=== PATIENT | female | born 1970 | race Caucasian/White ===

== ENCOUNTER → 2017-08-09 07:23 | Outpatient (CLI) | payer MEDICAID, SELFPAY ==
--- NOTE | 2017-08-09 | BRBX_PTH ---
PATIENT: LAVELL LOUIS LOC: [facility] U#:[id number] AGE/SX: 54/F ROOM: RE08/09/[address]: Dr. Rola Vickers MD : 1970 BED: DIS: SPEC #: [id number] RECD: 08/09/17 13:06 STATUS: ANKUSH REStuart #: [id number] MITCHEL: 08/09/17 00:[address]: Rola Vickers DEPT: SURGICAL PATHOLOGY RECD BY: Ar Mccord ENTERED: 08/09/17 13:07 SP TYPE: BREAST BX OTHR DR: Dr. Alvino Ahn MD Tissues: Left breast, NOS Procedures: Surgery Specimen Level IV HEADER OPERATION: Left breast stereotactic needle core biopsy PRE-OP DIAGNOSIS: Microcalcifications, left breast upper outer deep TISSUE SUBMITTED: Left breast tissue ISCHEMIC TIME: 4.5 minutes FIXATIONA TIME: 10.5 hours MICROSCOPIC DIAGNOSIS Left breast, stereotactic needle core biopsy: Fibroadenoma with focal calcific change. Mild fibrocystic change. No evidence of malignancy. AM:nanci 08/10/17 MICROSCOPIC DESCRIPTION Slides are reviewed. GROSS DESCRIPTION Received in fixative is one container labeled with the patient's name and designated left breast. The specimen consists of multiple elongated fragments of guerra-yellow fibroadipose tissue that in aggregate measure 2.5 x 2.5 x 0.3 cm. The entire specimen is submitted in one cassette. / SJ:nanci 08/09/17 TC:5 CPT: 42600
--- NOTE | 2017-08-09 09:07 | PCM.OPRPT ---
Report of Operation Date of Procedure: 08/09/17 Pre-Operative Diagnosis: abnormal calcifications seen on left breast mammograms Post-Operative Diagnosis: same Surgery/Procedure Performed:: left breast stereotactic biopsy Description of Surgical Findings:: upper central calcifications of left breast Type of Anesthesia:: Local - 1% xylocaine Specimen's removed: left breast tissue Estimated Blood Loss (mL): < 1 ml Description of Procedure: After informed consent was given, the patient was brought into the breast biopsy suite and then placed in the prone position on the stereotactic biopsy table. The patients left breast was then placed at the opening of the head of the table. A signing agent compression mammogram was then obtained in the CC view. The suspicious radiological lesion was then identified, these calcifications were in the upper central portion of the breast. Stereo pictures of the lesion were then taken for XYZ coordinates. The Mammotome biopsy stylus was then positioned where it would be entering into the patients breast. The skin at this site was then cleansed with a surgical skin preparation. The skin and subcutaneous tissues at this site were then infiltrated with 1% xylocaine. A small skin incision was made with an 11 blade scalpel. The biopsy stylus was then positioned into the patients breast at the proper coordinates of depth. Using the Mammotome vacuum-assist device, several core samples of breast tissue were obtained. A specimen mammogram was the obtained and revealed that the abnormal calcifications were within the specimen. Thus adequate biopsy was completed. A hemostatic marker clip was then placed into the biopsy cavity and a signing agent film revealed that it was properly deployed. The patient was then placed in the supine position and pressure was applied to the breast until no active bleeding was noted. Steristrips were applied to reapproximate the skin. A unilateral mammogram in the CC and MLO view were then taken which revealed that the marker clip was in the same area as the previous suspicious lesion. The patient tolerated the procedure well and was discharged from the breast biopsy suite in good condition. - Complications none noted - Admit VTE Documentation VTE Present on Admission: No - low risk procedure for PE/DVT
--- NOTE | 2017-08-09 09:10 | OP.PCM_ITS ---
Report of Operation Date of Procedure: 08/09/17 Pre-Operative Diagnosis: abnormal calcifications seen on left breast mammograms Post-Operative Diagnosis: same Surgery/Procedure Performed:: left breast stereotactic biopsy Description of Surgical Findings:: upper central calcifications of left breast Type of Anesthesia:: Local - 1% xylocaine Specimen's removed: left breast tissue Estimated Blood Loss (mL): < 1 ml Description of Procedure: After informed consent was given, the patient was brought into the breast biopsy suite and then placed in the prone position on the stereotactic biopsy table. The patient?s left breast was then placed at the opening of the head of the table. A media relations manager compression mammogram was then obtained in the CC view. The suspicious radiological lesion was then identified, these calcifications were in the upper central portion of the breast. Stereo pictures of the lesion were then taken for XYZ coordinates. The Mammotome biopsy stylus was then positioned where it would be entering into the patient?s breast. The skin at this site was then cleansed with a surgical skin preparation. The skin and subcutaneous tissues at this site were then infiltrated with 1% xylocaine. A small skin incision was made with an 11 blade scalpel. The biopsy stylus was then positioned into the patient?s breast at the proper coordinates of depth. Using the Mammotome vacuum-assist device, several core samples of breast tissue were obtained. A specimen mammogram was the obtained and revealed that the abnormal calcifications were within the specimen. Thus adequate biopsy was completed. A hemostatic marker clip was then placed into the biopsy cavity and a media relations manager film revealed that it was properly deployed. The patient was then placed in the supine position and pressure was applied to the breast until no active bleeding was noted. Steristrips were applied to reapproximate the skin. A unilateral mammogram in the CC and MLO view were then taken which revealed that the marker clip was in the same area as the previous suspicious lesion. The patient tolerated the procedure well and was discharged from the breast biopsy suite in good condition. - Complications none noted - Admit VTE Documentation VTE Present on Admission: No - low risk procedure for PE/DVT
== END ==
PROVIDERS: Family Provider Family Medicine; PCP Family Medicine; Visit Provider Surgery
DX: D24.2 Benign neoplasm of left breast (principal); R92.8 Other abnormal and inconclusive findings on diagnostic imaging of breast
CPT/HCPCS: 19081; 88305; J7050

== ENCOUNTER 2018-03-14 21:30 | Emergency (ER) | payer MEDICAID, SELFPAY ==
[2018-03-14 21:31] VITALS: BP 133/77; PULSE 109; RESP 14; TEMP 35.9; O2SAT 100; BMI 37.1
--- NOTE | 2018-03-14 21:58 | ED.DCSUM_ITS ---
- ER Visit Summary Date of Service: 03/14/18 Chief Complaint: Left foot swelling and redness History of Present Illness: The patient is a 47 F intermittent swelling foot over 2 weeks. History of lymphedema Lasix 20 mg. Today no redness dorsal foot. There is no injuries. Similar symptoms cellulitis in the past not a diabetic. States is been worked up from cellulitis inpatient and not of MRSA or staph carrier. Multiple allergies. Has been treated with doxycycline. No history of DVT. No recent travel, surgery, or immobilizations. She is on indomethacin for anti-inflammatory treatment. Physical Examination: General: Alert and oriented ?3, no acute distress HEENT: Normocephalic, atraumatic. Moist mucosa membranes Neck: supple, nontender. Cardiovascular: Regular rate 84 and rhythm, no murmurs Respiratory: Normal breath sounds, symmetric, no distress Abdomen: Soft, nontender, nondistended Extremities: Left lower extremity: No medial thigh or calf tenderness. Pulses intact distally there is minimal redness dorsal medial foot. No crepitus. No streaking. There was swelling dorsal foot minimal and medial ankle. Neuro: no focal neurological deficits. Test Results: [] Emergency Department Course and Treatment: Patient vitals stable, nontoxic. Exam shows early cellulitis. No clinical DVT concerns. She will be placed on doxycycline should continue indomethacin. she will follow-up with her PCP. Treatment Plan: [] Disposition: Discharge Impression: Left foot cellulitis This note was generated with [employer] dictation software. It may contain incorrect words, spelling, and punctuation that were not noted in review of the chart prior to signing ED Disposition - Plan for ED Patient: Disposition: Home or Assisted Living Chief Complaint: Edema Diagnosis: Cellulitis of left foot Instructions: ED Infec Skin Cellulitis Prescriptions: Doxycycline Monohydrate 100 mg PO BID #20 capsule Referrals: Alvino Ahn MD [Primary Care Provider] - 3-5 Days
[2018-03-14] MEDS: Doxycycline 100 MG CAPSULE PO (22:04)
[2018-03-14 22:14] VITALS: BP 113/70; PULSE 91; RESP 16; O2SAT 100
== END 2018-03-14 22:14 | disposition home or self-care (01) ==
LOC: ED 22:05
PROVIDERS: Emergency Provider Emergency Medicine; Family Provider Family Medicine; PCP Family Medicine
DX: L03.116 Cellulitis of left lower limb (principal); Z72.0 Tobacco use; I89.0 Lymphedema, not elsewhere classified
CPT/HCPCS: 99283

== ENCOUNTER 2018-04-26 17:01 | Emergency (ER) | payer MEDICAID, SELFPAY ==
[2018-04-26 17:02] VITALS: BP 122/74; PULSE 93; RESP 16; TEMP 36.9; O2SAT 98; BMI 35.2
--- NOTE | 2018-04-26 17:11 | ED.VISSUMM ---
- ER Visit Summary Date of Service: 04/26/18 Chief Complaint: Sore throat, cough, sinus congestion History of Present Illness: The patient is a 47 F 2-day history of mild sore throat mild productive cough. Sinus congestion yesterday. No fevers. No sick contacts. No dyspnea or wheeze. Tobacco history. No vomiting or diarrhea. Tolerating oral fluids. Physical Examination: General: Alert and oriented ?3, no acute distress HEENT: Normocephalic, atraumatic. Moist mucosa membranes. Swollen turbinates right greater than left with clear drainage. No maxillary or frontal sinus tenderness. Minimal tonsils bilaterally, airway patent, no posterior pharyngeal erythema. Neck: supple, nontender. Cardiovascular: Regular rate and rhythm, no murmurs Respiratory: Normal breath sounds, symmetric, no distress Abdomen: Soft, nontender, nondistended Extremities: Nontender, no edema, pulses intact ?4 Neuro: no focal neurological deficits. Test Results: [] Emergency Department Course and Treatment: Patient vital signs stable. Exam concerns for viral sinusitis with URI symptoms. I discussed viral syndrome with the patient. Symptomatic treatment with antihistamines, antitussives. Discussed continue oral hydration. Discussed a viral process and tobacco cessation. Follow-up with PCP. Treatment Plan: [] Disposition: Discharge Impression: 1. Acute sinusitis 2 upper respiratory infection This note was generated with [employer] dictation software. It may contain incorrect words, spelling, and punctuation that were not noted in review of the chart prior to signing ED Disposition - Plan for ED Patient: Disposition: Home or Assisted Living Chief Complaint: Cold Sx Diagnosis: Sinusitis, URI (upper respiratory infection) Instructions: ED Upper Resp Infec No Abx Tx, ED Sinusitis No Abx Prescriptions: Benzonatate [Tessalon Perle] 100 mg PO 4X/DAY PRN PRN #20 capsule PRN Reason: Cough Loratadine 10 mg PO DAILY #30 tablet Referrals: Alvino Ahn MD [Primary Care Provider] - 5-7 Days
== END 2018-04-26 17:30 | disposition home or self-care (01) ==
LOC: ED 17:21
PROVIDERS: Emergency Provider Emergency Medicine; Family Provider Family Medicine; PCP Family Medicine
DX: J01.90 Acute sinusitis, unspecified (principal); J06.9 Acute upper respiratory infection, unspecified; K21.9 Gastro-esophageal reflux disease without esophagitis; F32.9 Major depressive disorder, single episode, unspecified; F41.9 Anxiety disorder, unspecified; Z72.0 Tobacco use
CPT/HCPCS: 99282

== ENCOUNTER 2019-05-22 15:03 | Emergency (ER) | payer MEDICAID, SELFPAY ==
[2019-05-22 15:03] VITALS: BP 145/86; PULSE 99; RESP 16; TEMP 35.9; O2SAT 100
[2019-05-22 15:04] VITALS: BP 145/86; PULSE 99; RESP 16; TEMP 35.9; O2SAT 100; BMI 38.4
--- NOTE | 2019-05-22 17:01 | ED.DCSUM_ITS ---
History of Present Illness Chief Complaint: Ear Problem Detail of Chief Complaint: R ear pain Informant: Patient Onset: Weeks - 4 Context: Gradual Onset Timing: Intermittent Quality: pinching Location: R ear Current Severity: Mild Maximum Severity: Moderate Worsened by: - - nothing. ok to lie on, not painful. Associated Symptoms: Nasal Congestion, Nonproductive cough. Negative for: Headache, Sinus Pressure, Vomiting, Shortness of Breath, Chest Pain, Hemoptysis Narrative: Patient states she has had a cold for about 2 weeks. No fevers or shortness of breath. She presents here for medication refill as well, she has been without her medicines for 3 or more weeks, she lives in [place], [place] and is here with a friend because was in a bad situation. She forgot her medications and she is not able to receive them by mail because no one will send them. She is on a muscle relaxer for chronic pain as well as indomethacin. She has had an earache for 4 weeks. It is intermittent. There is no changes in hearing or popping in her ear or discharge from her ear. - Past Medical History (1) Depression with anxiety Status: Chronic (2) GERD (gastroesophageal reflux disease) Status: Chronic Past Medical History - Allergies and Home Meds Allergies/Adverse Reactions: Allergies amoxicillin Allergy (Verified 05/22/19 16:32) Upset Stomach azithromycin Allergy (Verified 05/22/19 16:32) Upset Stomach cephalexin [From Keflex] Allergy (Verified 05/22/19 16:32) Hives ibuprofen Allergy (Verified 05/22/19 16:32) Upset Stomach tramadol Allergy (Verified 05/22/19 16:32) Upset Stomach Primary Care Physician: EMELINA ANDUJAR [Other] Lives: Friends Smoking Status: Current every day smoker Review of Systems General: Reports: Malaise. Denies: Chills, Fever, Sweats Eyes: Denies: Visual changes - bilaterally, Diplopia ENT: Reports: Right ear pain, Rhinorrhea. Denies: Sore throat Cardiovascular: Denies: Chest pain, Palpitations Respiratory: Reports: Cough. Denies: Dyspnea, Sputum, Dyspnea on exertion Gastrointestinal: Denies: Abdominal pain, Nausea, Vomiting, Diarrhea, Melena, Hematochezia Genitourinary: Denies: Dysuria, Hematuria, Frequency Musculoskeletal: Denies: Back pain, Extremity Pain Skin: Denies: Rash, Wounds Neurological: Denies: Headache, Weakness, Numbness Physical Exam Vital Signs/Narrative: Vital Signs Temp Pulse Resp BP Pulse Ox 05/22/19 15:04 96.7 F L 99 16 145/86 H 100 05/22/19 15:03 96.7 F L 99 16 145/86 H 100 Inital Vital Signs reviewed: Yes General: Well nourished, Well developed Head: Normocephalic, Atraumatic Eyes: Perrl, EOMI Ears: Normal external canal, TM's clear. Negative for: Pain with Movement of Right Tragus, Pain with Movement of Left Tragus, Right Mastoid Tenderness, Left Mastoid Tenderness Nose: Normal Inspection. Negative for: Purulent Drainage Mouth/Throat: Normal Inspection, No Posterior Erythema Tonsils: Negative for: Right Tonsilar Erythema, Left Tonsilar Erythema, Right Tonsilar Exudates, Left Tonsilar Exudates Neck: Supple, Nontender, No Meningismus Respiratory: No distress Neurological: Alert, Oriented x3, Cranial nerves II-XII grossly intact, Normal Strength, Normal Sensation Psychological: Normal affect, Normal Mood Diagnostic/Tx/Re-eval - Medical Decision Making Her ear is normal-appearing and symmetric with the other side. I do not think antibiotics are indicated. She can follow-up with ENT, she has seen Dr. Martinez in the past, if symptoms persist. She is asking for something for her cough and medication refills, I gave her prescription refills for her antidepressants and her omeprazole but not for the chronic pain medications which she is apparently doing well with. She understands this. ED Disposition - Plan for ED Patient: Disposition: Home or Assisted Living Diagnosis: Earache, right, Medication refill, Viral URI with cough Instructions: URI, Viral, No Abx (Adult), Med Refill Prescriptions: Citalopram Hydrobromide [Citalopram HBr] 40 mg PO DAILY #30 tab Transmission Status: Pending to [facility] Lurasidone HCl [Latuda] 60 mg PO DAILY #30 tab Transmission Status: Pending to [facility] Omeprazole 1 tab PO DAILY #30 capsule.dr Transmission Status: Pending to [facility] Benzonatate [Tessalon Perle] 100 mg PO TID PRN PRN #21 cap PRN Reason: Cough Transmission Status: Pending to [facility] Referrals: Misty Thomas DO [NON-STAFF] - (call for primary care doctor appt) Wagner Martinez MD [STAFF PHYSICIAN] - As Needed
[2019-05-22] MEDS: guaiFENesin Dm 10 ML UDC PO (17:18)
== END 2019-05-22 17:21 | disposition home or self-care (01) ==
PROVIDERS: Emergency Provider Emergency Medicine
DX: J06.9 Acute upper respiratory infection, unspecified (principal); Z76.0 Encounter for issue of repeat prescription; R05 Cough; F17.200 Nicotine dependence, unspecified, uncomplicated; G89.29 Other chronic pain; F41.8 Other specified anxiety disorders; K21.9 Gastro-esophageal reflux disease without esophagitis; Z88.1 Allergy status to other antibiotic agents; Z88.5 Allergy status to narcotic agent; Z88.8 Allergy status to other drugs, medicaments and biological substances
CPT/HCPCS: 99283

== ENCOUNTER 2024-03-01 20:05 | Emergency (ER) | payer MEDICAID, SELFPAY ==
[2024-03-01 20:08] VITALS: BP 128/82; PULSE 86; RESP 18; TEMP 36.2; O2SAT 95; BMI 43.7
== END 2024-03-01 21:30 | disposition left against medical advice (07) ==
LOC: ED 21:40
DX: M25.559 Pain in unspecified hip (principal)

== ENCOUNTER 2024-04-10 16:23 | Emergency (ER) | payer MEDICAID, SELFPAY ==
[2024-04-10 16:23] VITALS: BP 146/110; PULSE 79; RESP 18; TEMP 36.8; O2SAT 99; BMI 42.7
--- NOTE | 2024-04-10 18:47 | ED.VIS.LOWEX ---
HPI History of Present Illness HPI Narrative: Patient presents with bilateral foot and ankle pain and swelling that has been getting worse over the past month and a half. Patient states that her primary care physician has tried different anti-inflammatory medications without relief. Patient states she is also been started on cyclobenzaprine recently. Patient states she has also been started on Lasix. Patient states her pain is worse with any ambulation. Patient states it is better with rest. Patient states her pain comes and goes. Patient describes it as aching and burning. Patient states she has some sharp pain in her left ankle at times. Patient admits to some paresthesias but denies any weakness. Chief Complaint: Lower Extremity Injury Onset/Context/Timing Onset: Month(s) (1.5) Context: Gradual Onset Timing: Intermittent Quality of Pain: Dull and Aching Location: Bilateral feet and ankle Worsened by: Ambulation Relieved by: Rash Associated Symptoms Associated Symptoms: Positive for Parasthesia; Negative for Weakness or Loss of Funtion [facility] Medical History (Updated 04/10/24 @ 21:[address] Ignacio Pearson, ) Pancreatitis GERD (gastroesophageal reflux disease) Home Medications ?Medication ?Instructions ?Recorded ?Last Taken ?Type omeprazole 40 mg capsule,delayed 40 mg PO DAILY 05/22/19 Unknown History release diclofenac sodium 75 mg 75 mg PO BID 04/10/24 Unknown History tablet,delayed release loratadine 10 mg tablet 10 mg PO DAILY PRN allergy symptoms 04/10/24 Unknown History Allergy/AdvReac Type Severity Reaction Status Date / Time amoxicillin Allergy Unknown Verified 04/10/24 16:23 azithromycin Allergy Upset Verified 04/10/24 16:23 Stomach cephalexin (From Keflex) Allergy Hives Verified 04/10/24 16:23 cephalexin monohydrate (From Allergy Swelling Verified 04/10/24 16:23 Keflex) erythromycin base Allergy Unknown Verified 04/10/24 16:23 ibuprofen AdvReac Upset Verified 04/10/24 16:23 Stomach tramadol AdvReac Nausea/Vom/ Verified 04/10/24 16:23 Diarrhea Surgical History (Updated 04/10/24 @ 19:[address] Ignacio Pearson, DO) History of 3 sections History of vocal cord polypectomy Hx of cholecystectomy Social History housing: house Smoking Status: Current every day smoker tobacco type: cigarettes and e-cigarettes EXAM Physical Exam Const Vital Signs: 04/10/24 16:23 04/10/24 21:00 Temperature 98.3 F Temperature Source Oral Pulse Rate 79 82 Respiratory Rate 18 18 Blood Pressure 146/110 H 113/99 H Blood Pressure Mean 122 103 Pulse Ox 99 95 Oxygen Delivery Method Room Air Room Air MDM MDM MDM Narrative Medical decision making narrative: Differential diagnosis includes acute kidney injury, peripheral edema, congestive heart failure, and electrolyte abnormality. CBC will be obtained to assess for leukocytosis and anemia. Basic metabolic profile will be obtained to assess for electrolyte abnormality and renal function. BNP will be obtained to assess for congestive heart failure. Chest x-ray will be obtained to assess for pneumonia and congestive heart failure. Lab Data Attestation: I reviewed the patient's lab results. Lab results narrative: CBC was reviewed. There is a slight anemia with a hemoglobin of 11.9 and hematocrit 35.9. Remainder was within normal limits. Basic metabolic profile was reviewed and was within normal limits. He BNP was reviewed and was normal at 30.7. Labs: Laboratory Results - last 24 hr 04/10/24 20:05 WBC 9.8 RBC 3.85 L Hgb 11.9 L Hct 35.9 L MCV 93.2 MCH 30.9 MCHC 33.1 RDW Std Deviation 46.1 H RDW Coeff of Harish 13.6 Plt Count 212 MPV 12.6 H Immature Gran % (Auto) 0.300 Neut % (Auto) 50.9 Lymph % (Auto) 42.2 H [place] % (Auto) 4.3 Eos % (Auto) 1.8 Baso % (Auto) 0.5 Absolute Neuts (auto) 5.0 Absolute Lymphs (auto) 4.13 Nucleated RBC % 0 Sodium 142 Potassium 4.1 Chloride 109 H Carbon Dioxide 30.0 Anion Gap 4 L BUN 14 Creatinine 0.76 Estim Creat Clear Calc 114.36 Est GFR (MDRD) Af Amer 103 Est GFR (MDRD) Non-Af 85 BUN/Creatinine Ratio 18.5 Glucose 104 Calcium 9.0 B-Natriuretic Peptide 30.7 Radiography Chest X-Ray - ED: 2 View, Read by ED Physician, Read by Radiologist and No Acute Disease Diagnostic Testing: Clinical Impression(s) from Imaging Studies Chest X-Ray 04/10/24 19:51 IMPRESSION: Normal x-ray examination of the chest. Electronically Signed: Wagner Flanagan MD at 20:30 EST , PA and lateral chest x-ray was obtained. There are 2 views. On my independent interpretation, lung alvarado are clear. There is normal cardiac silhouette. Bony thorax is normal. There is no acute process noted. Radiologist also interpreted the x-ray and agrees. Treatment and Re-Evaluation Narrative: Smoking cessation was discussed. Patient was advised of her findings. Patient was sleeping on reevaluation. Patient was instructed to keep her legs elevated. Patient was given a note for work for today. Patient was instructed to follow-up with her primary care physician for further evaluation. Patient understood and was agreeable with the plan. All questions were answered. Discharge Plan Triage Chief Complaint: Lower Extremity Injury ED Provider: Ignacio Pearson Dx/Rx/DC Orders Clinical Impression: Peripheral edema, Bilateral ankle pain Instructions: ED Peripheral Edema, Bilateral Prescriptions: No Action omeprazole 40 MG capsule,delayed release(DR/EC) 40 mg PO DAILY diclofenac sodium 75 mg tablet,delayed release (DR/EC) 75 mg PO BID loratadine 10 MG tablet 10 mg PO DAILY PRN (Reason: allergy symptoms) Stand Alone Forms: ED Work / School Excuse Primary Care Provider: Care Physician,No Primary Referrals: Care Physician,No Primary [Primary Care Provider] - Doctor,Your [Non-Staff] - 3-5 Days Print Language: Portuguese Disposition Disposition: Home, Self Care
--- NOTE | 2024-04-10 19:51 | RAD_ITS ---
STUDY: X-RAY CHEST REASON FOR EXAM: Female, 53 years old. Edema TECHNIQUE: Single frontal view of the chest. COMPARISON: May 04, 2010 FINDINGS: The lungs are clear and expanded. There is no demonstrated pleural abnormality. Normal size heart. Normal mediastinum and arnaldo. Normal visualized pulmonary arteries. Normal visualized aortic arch and descending thoracic aorta. Normal visualized thoracic spine. Normal visualized ribs, clavicles, and shoulders. There is no demonstrated abnormality of the visualized soft tissue structures of the upper abdomen. RAD/Chest PA and Lateral IMPRESSION: Normal x-ray examination of the chest. Electronically Signed: Wagner Flanagan MD at 20:30 EST ,
[2024-04-10 20:14] LABS: Absolute Lymphocyte Count 4.13 X10^3/uL (0.83-4.51); Basophil# 0.05 X10^3/uL; Basophil% 0.5 % (0-1); Eosinophil# 0.18 X10^3/uL; Eosinophils% 1.8 % (0-5); Hematocrit 35.9 % (37-47); Hemoglobin 11.9 g/dL (12.0-15.0); Lymphocyte # 4.13 X10^3/ul (0.83-4.51); Lymphocyte % 42.2 % (19-41); Mean Corp Hgb Conc 33.1 g/dL (32-36); Mean Corpuscular Hgb 30.9 pg (27.0-32.0); Mean Corpuscular Volume 93.2 fL (81-99); Mean Platelet Vol. 12.6 fl (6.2-12.0); Monocyte# 0.42 X10^3/uL; Monocyte% 4.3 % (0-10); NRBC Flagged by Analyzer 0 % (0-5); Neutrophil # 4.98 X10^3/uL (2.7-7.7); Neutrophil % 50.9 % (47-70); Platelet Count 212 K/mm3 (150-450); RBC Distribution Width CV 13.6 % (11.6-14.6); RBC Distribution Width SD 46.1 fl (35.1-43.9); Red Blood Count 3.85 M/mm3 (4.2-5.4); White Blood Count 9.8 K/mm3 (4.4-11.0)
[2024-04-10 20:28] LABS: Anion Gap 4 (5-15); BUN 14 mg/dL (7-18); BUN/Creat Ratio 18.5 RATIO (10-20); Chloride 109 mmol/L (98-107); Creatinine, Serum 0.76 mg/dL (0.55-1.02); EST Glomerular Filtration Rate 85 mL/min (>60); Est Glom Filt Rate - Afr Amer 103 mL/min (>60); Estimated Creatinine Clearance 114.36 ml/min; Glucose 104 mg/dL (74-106); Potassium 4.1 mmol/L (3.5-5.1); Sodium Level 142 mmol/L (136-145)
[2024-04-10 20:34] LABS: BNP,B-Type NATRIURETIC PEPTIDE 30.7 pg/mL (0-100)
[2024-04-10 21:00] VITALS: BP 113/99; PULSE 82; RESP 18; O2SAT 95
== END 2024-04-10 22:03 | disposition home or self-care (01) ==
PROVIDERS: Emergency Provider Emergency Medicine; Visit Provider Emergency Medicine
DX: R60.0 Localized edema (principal); Z79.899 Other long term (current) drug therapy; Z90.49 Acquired absence of other specified parts of digestive tract; F17.210 Nicotine dependence, cigarettes, uncomplicated; F17.290 Nicotine dependence, other tobacco product, uncomplicated; M25.571 Pain in right ankle and joints of right foot; M25.572 Pain in left ankle and joints of left foot
CPT/HCPCS: 71046; 80048; 83880; 85025; 99283; A4216

== ENCOUNTER 2024-10-27 09:43 | Emergency (ER) | payer MEDICAID, SELFPAY ==
[2024-10-27 09:43] VITALS: BP 159/94; PULSE 87; RESP 14; TEMP 36.6; O2SAT 98; BMI 21.9
--- NOTE | 2024-10-27 10:07 | EX.ED.UPPERE ---
HPI History of Present Illness Chief Complaint: Upper Extremity Injury Informant: patient Narrative Narrative: 54-year-old female presents because of sciatica down my right leg for the past month, feels similar to sciatica she was diagnosed with on the left in the past but that went away, and nontraumatic left elbow pain for the past 2-3 weeks. She states the pain is focused in her elbow but it goes all the way up to her shoulder and all the way down to her wrist. It hurts more to move and is better to remain still. Has not tried any treatment. She has some numbness on the bottom of her right foot at times no bowel or bladder dysfunction or weakness in the leg. 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 She denies any injury to her back. She denies any systemic symptoms such as fevers or chills she is not an IV drug user, she denies any recent dental work or dental abscess. [facility] Medical History Arthritis Pancreatitis GERD (gastroesophageal reflux disease) Home Medications ?Medication ?Instructions ?Recorded ?Last Taken ?Type omeprazole 40 mg capsule,delayed 40 mg PO DAILY 05/22/19 Unknown History release celecoxib 200 mg capsule 200 mg PO BID 10/27/24 Unknown History duloxetine 60 mg capsule,delayed 60 mg PO DAILY 10/27/24 Unknown History release furosemide 20 mg tablet 20 mg PO DAILY PRN swelling 10/27/24 Unknown History prednisone 20 mg tablet 40 mg (2 x 20 mg) PO DAILY 6 days 10/27/24 Unknown Rx #12 tabs Allergy/AdvReac Type Severity Reaction Status Date / Time amoxicillin Allergy Unknown Verified 10/27/24 09:44 azithromycin Allergy Upset Verified 10/27/24 09:44 Stomach cephalexin (From Keflex) Allergy Hives Verified 10/27/24 09:44 cephalexin monohydrate (From Allergy Swelling Verified 10/27/24 09:44 Keflex) erythromycin base Allergy Unknown Verified 10/27/24 09:44 ibuprofen AdvReac Upset Verified 10/27/24 09:44 Stomach tramadol AdvReac Nausea/Vom/ Verified 10/27/24 09:44 Diarrhea Surgical History (Updated 04/10/24 @ 19:[address] Ignacio Pearson DO) History of 3 sections History of vocal cord polypectomy Hx of cholecystectomy Social History housing: house Smoking Status: Current every day smoker tobacco type: cigarettes and e-cigarettes ROS ROS ED Constitutional Constitutional ED: Denies chills or fever(s) Eyes Eyes: Denies blurry vision or diplopia ENT ENT ED: Denies dental pain, ear pain or sore throat Cardiovascular Cardiovascular: Denies chest pain, palpitations or racing heartbeat Respiratory/Chest Respiratory/Chest: Denies dyspnea Gastrointestinal Gastrointestinal: Denies abdominal pain, constipation, fecal incontinence, nausea or vomiting Genitourinary Genitourinary ED: Reports other Details: no urinary retention ; Denies abdominal discomfort or urinary incontinence Musculoskeletal Musculoskeletal: Reports back pain and extremity pain; Denies neck pain Integumentary Denies Abrasions, rash or wounds Neurologic Neurologic: Reports paresthesias RLE (Bottom of foot at times); Denies weakness EXAM Physical Exam Const Vital Signs: 10/27/24 09:43 Temperature 98 F Temperature Source Temporal Pulse Rate 87 Respiratory Rate 14 Blood Pressure 159/94 H Blood Pressure Mean 115 Pulse Ox 98 Oxygen Delivery Method Room Air Positive well nourished and well developed General Appearance ED: well developed and NAD HEENT Negative for trauma or tenderness Eyes PERRL and EOMs intact bilaterally Neck full ROM and supple Chest Wall inspection of chest normal and palpation of chest normal Resp normal respiratory effort and clear to auscultation bilaterally Cardio regular rate and regular rhythm Cardio Narrative: Soft systolic murmur GI normal to inspection, nondistended, normoactive bowel sounds, soft to palpation and non-tender Back/Spine no CVA tenderness, normal ROM and normal to inspection Back/Spine Narrative: Ipsilateral right straight leg raise causes buttock and back pain but does not reproduce radicular symptoms in the right lower extremity. Negative contralateral straight leg raise and cross straight leg raise. Lumbar Spine / Lower Back: ROM limited and straight leg raise negative bilaterally; Negative for lumbar spinal tenderness or paraspinal muscle tenderness Extremity normal to inspection, full ROM and no pedal edema Extremity Narrative: Tenderness throughout the entire posterior left elbow, including all bony prominences of both epicondyles, olecranon process, and all areas in between which is superficial palpation. The skin is normal-appearing without signs of cellulitis. There is no significantly swollen areas to suggest olecranon bursitis or an abscess. All compartments of the forearm and upper arm are soft and nondistended, nontender. She can move the wrist fully, but complains of pain when she does that in the proximal forearm and elbow. I can bend her from straight down to 90 degrees and with the arm abducted, perform pronation and supination with no pain. Also can range the shoulder without any difficulty. Neuro oriented x3, no focal motor deficits and no sensory deficits noted Sensorium / Orientation: alert Motor Exam: strength 5/5 throughout and clonus absent Deep Tendon Reflexes: Rt Patellar (L4): 2+, Lt Patellar (L4): 2+, Rt Ankle (S1): 2+ and Lt Ankle (S1): 2+ Deep Tendon Reflexes Back: Rt Patellar (L4): 2+, Lt Patellar (L4): 2+, Rt Ankle (S1): 2+ and Lt Ankle (S1): 2+ Plantar Reflex: Downgoing: bilateral Psych thought process normal Mood & Affect: anxious Skin no wounds Rashes: no rashes MDM MDM MDM Narrative Medical decision making narrative: Patient states she has appointments for these issues but she could not take the pain anymore. I do not think she has an infected elbow or crystal induced arthritis here, she is really moving it well, and she has diffuse tenderness, which to me is less indicative of an acute fracture but I did obtain three-view x-ray series of the left elbow, on my interpretation it is normal. Radiology in agreement. She was given some Toradol here, she is amenable to trying a prescription for prednisone, I do not think that she has a septic arthritis in the left elbow, her exam is very benign except for some superficial tenderness in a very nonspecific distribution. She is following up with her doctor as scheduled. Discharge Plan Triage Chief Complaint: Upper Extremity Injury ED Provider: Sd Desouza Dx/Rx/DC Orders Clinical Impression: Left elbow pain, Acute right-sided low back pain with right-sided sciatica Instructions: ED Arthralgia, ED Sciatica Prescriptions: New prednisone 20 mg tablet 40 mg PO DAILY 6 Days Qty: 12 0RF No Action omeprazole 40 MG capsule,delayed release(DR/EC) 40 mg PO DAILY celecoxib 200 mg capsule 200 mg PO BID furosemide 20 mg tablet 20 mg PO DAILY PRN (Reason: swelling) duloxetine 60 mg capsule,delayed release(DR/EC) 60 mg PO DAILY Primary Care Provider: Care Physician,No Primary Referrals: Doctor,Your [Non-Staff] - Keep [facility] appointment Print Language: [place] Disposition Disposition: Home, Self Care
[2024-10-27] MEDS: Ketorolac 30 MG/ML Syringe IM (10:26)
--- NOTE | 2024-10-27 10:33 | RAD_ITS ---
PROCEDURE: ELBOW MIN 3 VIEWS 10/27/2024 REASON FOR EXAM: PAIN TECHNIQUE: ELBOW MIN 3 VIEWS COMPARISON: None RAD/Elbow min 3 Views IMPRESSION: No acute fracture or dislocations. [id number] degenerative changes. No large joint effusion. Mild soft tissue edema. No radiographic foreign body. Reading Location: [id number]
[2024-10-27 12:22] VITALS: BP 159/83; PULSE 66; RESP 14; TEMP 36.9; O2SAT 100
== END 2024-10-27 12:23 | disposition home or self-care (01) ==
PROVIDERS: Emergency Provider Emergency Medicine; Visit Provider Emergency Medicine
DX: M25.522 Pain in left elbow (principal); M54.41 Lumbago with sciatica, right side; F17.210 Nicotine dependence, cigarettes, uncomplicated; R20.2 Paresthesia of skin; Z90.49 Acquired absence of other specified parts of digestive tract; K21.9 Gastro-esophageal reflux disease without esophagitis
CPT/HCPCS: 73080; 96372; 99282

== ENCOUNTER 2024-11-15 07:06 | Emergency (ER) | payer MEDICAID, SELFPAY ==
[2024-11-15 07:08] VITALS: BP 134/97; PULSE 79; RESP 16; TEMP 36.5; O2SAT 97
--- NOTE | 2024-11-15 07:30 | EX.ED.DYSGE1 ---
HPI History of Present Illness Chief Complaint: Other, Pain/Inj Detail of Chief Complaint: Patient has numerous complaints. Main complaint is bump right side of her Informant: patient Onset/Context/Timing Onset: Yesterday Context: Sudden Onset Timing: Continuous Quality: Pain and swelling anterior and inferior right ear Location: Right parotid gland and Stensen's duct Current Severity: Mild Maximum Severity: Moderate Worsened by: Nothing Relieved by: Nothing Associated Symptoms Associated Symptoms: Nothing/none Narrative Narrative: Patient is a 54-year-old woman with history of GERD, depression anxiety who presents because of swelling right side of her face and bump on the inside of her mouth. She had other complaints listed in triage but that is not the reason she presented. She states she is seen other practitioners for her other complaints. She denies fever, chills night sweats. She denies inability or difficulty opening closing her mouth. She denies change in voice. She denies difficulty swallowing. She has seen Dr. Wagner Martinez in the past. She has multiple antibiotic allergies. Based on her antibiotic allergies we will treat with doxycycline. Patient also was concerned because of bumps on her face. Prior similar symptoms: No Recent Illness/Hospitalization: No [facility] Medical History Arthritis Pancreatitis GERD (gastroesophageal reflux disease) Home Medications ?Medication ?Instructions ?Recorded ?Last Taken ?Type omeprazole 40 mg capsule,delayed 40 mg PO DAILY 05/22/19 Unknown History release celecoxib 200 mg capsule 200 mg PO BID 10/27/24 Unknown History duloxetine 60 mg capsule,delayed 60 mg PO DAILY 10/27/24 Unknown History release furosemide 20 mg tablet 20 mg PO DAILY PRN swelling 10/27/24 Unknown History prednisone 20 mg tablet 40 mg (2 x 20 mg) PO DAILY 6 days 10/27/24 Unknown Rx #12 tabs doxycycline monohydrate 100 mg 100 mg PO BID #14 CAPSULES 11/15/24 Unknown Rx capsule Allergy/AdvReac Type Severity Reaction Status Date / Time amoxicillin Allergy Unknown Verified 11/15/24 07:13 azithromycin Allergy Upset Verified 11/15/24 07:13 Stomach cephalexin (From Keflex) Allergy Hives Verified 11/15/24 07:13 cephalexin monohydrate (From Allergy Swelling Verified 11/15/24 07:13 Keflex) erythromycin base Allergy Unknown Verified 11/15/24 07:13 ibuprofen AdvReac Upset Verified 11/15/24 07:13 Stomach tramadol AdvReac Nausea/Vom/ Verified 11/15/24 07:13 Diarrhea Surgical History History of 3 sections History of vocal cord polypectomy Hx of cholecystectomy Social History housing: house Smoking Status: Current every day smoker tobacco type: cigarettes and e-cigarettes ROS ROS ED Constitutional Constitutional ED: Denies chills, fever(s), subjective, sweats or weight loss Eyes Eyes: Denies blurry vision, change in vision or diplopia ENT ENT ED: Reports other Details: Detailed HPI narrative ; Denies ear pain, rhinorrhea or sore throat Cardiovascular Cardiovascular: Denies palpitations Respiratory/Chest Respiratory/Chest: Denies cough or dyspnea Gastrointestinal Gastrointestinal: Denies nausea or vomiting Integumentary Reports rash and other Details: Patient has folliculitis/heat rash on her face and neck. Neurologic Neurologic: Denies headache(s) or paresthesias Hematologic/Lymphatic Hematologic/Lymphatic: Reports systems reviewed and no addt'l complaints, except as documented EXAM Physical Exam Const Vital Signs: 11/15/24 07:08 Temperature 97.7 F L Temperature Source Temporal Pulse Rate 79 Respiratory Rate 16 Blood Pressure 134/97 H Blood Pressure Mean 109 Pulse Ox 97 Oxygen Delivery Method Room Air Positive well nourished and well developed General Appearance ED: well developed and NAD; Negative for cyanotic or diaphoretic HEENT Reports moist mucous membranes HEENT Narrative: Head is atraumatic and normocephalic. Ears are normal. TMs are normal. There is no preauricular lymphadenopathy. Patient has swelling of her parotid gland. Milking of the parotid gland elicits discharge from Stensen's duct. Posterior pharynx without erythema or exudate. Uvula midline. No deviation tongue with protrusion. There is no dysphonia. There is no drooling. Eyes PERRL and EOMs intact bilaterally General Eye ED: Negative for pale conjunctiva or scleral icterus Neck no lymphadenopathy, supple and no JVD Neck Narrative: Trachea is midline. Cardio regular rate and regular rhythm Extremity normal to inspection Neuro oriented x3 and CN's II-XII intact bilaterally Sensorium / Orientation: alert Psych mental status grossly normal Skin Skin Narrative: Heat rash face/folliculitis. MDM MDM MDM Narrative Medical decision making narrative: Patient presents with facial swelling. Patient's exam is consistent with acute parotid inflammation. This may be due to an obstructing stone. Since patient has no fever and vital signs are unremarkable there is no indication for any laboratory testing. Based on her numerous antibiotic allergies history of doxycycline. She was instructed to suck on lemon drops. She was also instructed to contact Dr. Valderrama's office for follow-up since she has seen him in the past. History & Record Review Additional record(s) reviewed:: Prior ED visit (October 2024 for left elbow pain. April 2020 for forearm edema. May 2019 for ear pain and sinus symptoms.) Treatment and Re-Evaluation :: Patient received her first dose of doxycycline in the emergency department. Prescription for doxycycline was sent to pharmacy. Discharge Plan Triage Chief Complaint: Other, Pain/Inj ED Provider: Ace Fox Dx/Rx/DC Orders Clinical Impression: Acute parotitis, Chronic GERD, BMI greater than 30 Instructions: ED Salivary Gland Infection Prescriptions: New doxycycline monohydrate 100 mg capsule 100 mg PO BID Qty: 14 0RF No Action omeprazole 40 MG capsule,delayed release(DR/EC) 40 mg PO DAILY celecoxib 200 mg capsule 200 mg PO BID furosemide 20 mg tablet 20 mg PO DAILY PRN (Reason: swelling) duloxetine 60 mg capsule,delayed release(DR/EC) 60 mg PO DAILY prednisone 20 mg tablet 40 mg PO DAILY 6 Days Qty: 12 0RF Primary Care Provider: Care Physician,No Primary Referrals: Wagner Martinez MD [Med Staff - Active Staff] - 3-5 Days Care Physician,No Primary [Primary Care Provider] - Activity Restrictions/Additional Instructions: 1. Suck on lemon drops throughout the day. 2. Follow-up with Dr. Wagner Martinez who you have seen in the past. 3. If you develop a temperature greater than 100, shaking chills or significant increase in facial swelling return to the emergency department Print Language: Sami Disposition Disposition: Home, Self Care
[2024-11-15 07:47] VITALS: BP 147/96; PULSE 71; RESP 18; TEMP 36.5; O2SAT 100
== END 2024-11-15 07:50 | disposition home or self-care (01) ==
LOC: ED 07:36
PROVIDERS: Emergency Provider Emergency Medicine; PCP Nurse Practitioner Family; Visit Provider Emergency Medicine
DX: K11.20 Sialoadenitis, unspecified (principal); F17.210 Nicotine dependence, cigarettes, uncomplicated; K21.9 Gastro-esophageal reflux disease without esophagitis; Z90.49 Acquired absence of other specified parts of digestive tract; F32.A Depression, unspecified; F41.9 Anxiety disorder, unspecified
CPT/HCPCS: 99282

== ENCOUNTER 2024-11-20 10:19 | Emergency (ER) | payer MEDICAID, SELFPAY ==
[2024-11-20 10:21] VITALS: BP 114/87; PULSE 72; RESP 18; TEMP 37.4; O2SAT 98; BMI 41.3
--- NOTE | 2024-11-20 10:49 | EDS_ITS ---
HPI History of Present Illness Chief Complaint: Allergic Reaction Detail of Chief Complaint: Possible allergic reaction and sciatica . Informant: patient Onset/Context/Timing Onset: Today (Bumps on her face) and Weeks (Reported sciatic pain and low back pain) Context: Sudden Onset Timing: Continuous Quality: Patient with small whiteheads over her face. 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 No radicular pain. She reports foot drop Narrative Narrative: Patient is a 54-year-old woman. She has history of GERD, prostatitis, depression and anxiety and BMI greater than 40. She presents because of white bumps on her face which she believes is due to reaction to the antibiotic she was prescribed. Patient denies itching. Patient denies swelling of her lips, tongue or throat. She denies trouble swallowing. She has had no change in her voice. She has no cardiac or respiratory symptoms. She denies wheezing. Low back pain noted on the right side. There is no radicular pain. She reports dragging her foot today. She also has numbness in her foot and is seen by Dr. Gustafson. She denies history of diabetes, peripheral arterial disease or neuropathy. There is no history of trauma. She has not noted a rash. She does not have symptoms of claudication. Prior similar symptoms: Yes (Yes to back pain note to facial rash) Recent Illness/Hospitalization: Yes (Seen in ED for parotitis.) [facility] Medical History Arthritis Pancreatitis GERD (gastroesophageal reflux disease) Home Medications ?Medication ?Instructions ?Recorded ?Last Taken ?Type omeprazole 40 mg capsule,delayed 40 mg PO DAILY Unknown History release celecoxib 200 mg capsule 200 mg PO BID 10/27/24 Unkno wn History duloxetine 60 mg capsule,delayed 60 mg PO DAILY Unknown History release furosemide 20 mg tablet 20 mg PO DAILY PRN swelling 10/27/24 Unknown History prednisone 20 mg tablet 40 mg (2 x 20 mg) PO DAILY 6 days 10/27/24 Unknown Rx #12 tabs doxycycline monohydrate 100 mg 100 mg PO BID #14 CAPSU LES 11/15/24 Unknown Rx capsule Allergy/AdvReac Type Severity Reaction Status Date / Time amoxicillin Allergy Unknown Verified 11/20/24 10:24 azithromycin Allergy Upset Verified 11/20/24 10:24 Stomach cephalexin (From Keflex) Allergy Hives Verified 11/20/24 10:24 cephalexin monohydrate (From Allergy Swelling Verified 11/20/24 10:24 Keflex) erythromycin base Allergy Unknown Verified 11/20/24 10:24 ibuprofen AdvReac Upset Verified 11/20/24 10:24 Stomach tramadol AdvReac Nausea/Vom/ Verified 11/20/24 10:24 Diarrhea Surgical History History of 3 sections History of vocal cord polypectomy Hx of cholecystectomy Social History housing: house Smoking Status: Current every day smoker tobacco type: e-cigarettes ROS ROS ED Constitutional Constitutional ED: Denies chills, fever(s), subjective or sweats Eyes Eyes: Denies blurry vision or change in vision ENT ENT ED: Denies ear pain, rhinorrhea or sore throat Cardiovascular Cardiovascular: Denies chest pain or palpitations Respiratory/Chest Respiratory/Chest: Denies cough or dyspnea Gastrointestinal Gastrointestinal: Denies nausea Musculoskeletal Musculoskeletal: Reports back pain Integumentary Reports rash Neurologic Neurologic: Denies headache(s) or paresthesias Allergic/Immunologic Allergic/Immunologic ED: Denies mouth swelling, tongue swelling or urticaria EXAM Physical Exam Const Vital Signs: 11/20/24 10:21 Temperature 99.4 F H Temperature Source Oral Pulse Rate 72 Respiratory Rate 18 Blood Pressure 114/87 H Blood Pressure Mean 96 Pulse Ox 98 Oxygen Delivery Method Room Air Positive well nourished and well developed General Appearance ED: well developed and NAD HEENT Reports moist mucous membranes HEENT Narrative: Patient has multiple small whiteheads on her face. She states she has not been sweating profusely recently. She was seen for parotid gland swelling on the right. This has improved. She no longer complains of pain. There is no evidence of angioedema. Trachea is midline. There is no inspiratory expiratory stridor. Eyes PERRL and EOMs intact bilaterally General Eye ED: Negative for pale conjunctiva or scleral icterus Neck no lymphadenopathy, supple and no JVD Neck Narrative: Also documented under the H EENT portion of the EMR Resp normal respiratory effort and clear to auscultation bilaterally Cardio regular rate, regular rhythm, S1 normal heart sound, S2 normal heart sound and no murmurs GI normal to inspection, nondistended, normoactive bowel sounds and non-distended; Negative for hepatosplenomegaly Back/Spine no CVA tenderness Thoracic Spine / Upper Back: Negative for thoracic spinal tenderness Lumbar Spine / Lower Back: lumbar spinal tenderness Extremity normal to inspection General Extremety ED: Negative for edema or tenderness General Extremity: Negative for edema Neuro oriented x3, CN's II-XII intact bilaterally and no sensory deficits noted Neuro Narrative: Pelvic telemetry and ankle reflex are 1+. EHLs intact. Normal sensation L3-S1 dermatome. DP pulses palpable bilateral. Gait was observed. She has no foot drop. Able to walk on heels and toes. Able to perform 1 legged squat right and left. Having her bend to the right and left and flex causes her discomfort on the right side. Having her stand on her left foot causes her pain right low back. Standing on her right foot causes no discomfort. Motor Exam: strength 5/5 throughout Psych mental status grossly normal Skin No no rashes or lesions noted, no wounds and skin turgor normal Skin Narrative: Previously described under the HEENT portion of the medical exam General Skin Exam: elasticity normal MDM MDM MDM Narrative Medical decision making narrative: With regards to the rash this is not allergic. This has to do with hygiene. Sores or back pain she does not have sciatica. This is musculoskeletal. She is on NSAID. She was instructed to take her NSAID and ice. Prior ER and outpatient records were reviewed. There is no change since visit last week. Discharge Plan Triage Chief Complaint: Allergic Reaction Other Complaint: Back ED Provider: Ace Fox Dx/Rx/DC Orders Clinical Impression: [place], GERD (gastroesophageal reflux disease), Myofascial pain syndrome of lumbar spine Instructions: Adult Acne, ED Myofascial Pain Syndrome Prescriptions: No Action omeprazole 40 MG capsule,delayed release(DR/EC) 40 mg PO DAILY celecoxib 200 mg capsule 200 mg PO BID furosemide 20 mg tablet 20 mg PO DAILY PRN (Reason: swelling) duloxetine 60 mg capsule,delayed release(DR/EC) 60 mg PO DAILY prednisone 20 mg tablet 40 mg PO DAILY 6 Days Qty: 12 0RF doxycycline monohydrate 100 mg capsule 100 mg PO BID Qty: 14 0RF Primary Care Provider: Kia Chappell NP Referrals: Kia Chappell NP, [facility] [Primary Care Provider] - 1 Week if not improving Activity Restrictions/Additional Instructions: 1. Recommend taking your anti-inflammatory for your back pain. If you have loss of bowel control unable to urinate or are dragging your right lower extremity return to the emergency department otherwise follow-up with your providers. Print Language: Icelandic Disposition Disposition: Home, Self Care
[2024-11-20 11:38] VITALS: BP 118/71; PULSE 91; RESP 14; TEMP 37.3; O2SAT 98
== END 2024-11-20 11:40 | disposition home or self-care (01) ==
LOC: ED 11:04
PROVIDERS: Emergency Provider Emergency Medicine; PCP Nurse Practitioner Family; Visit Provider Emergency Medicine
DX: L70.0 Acne vulgaris (principal); G89.29 Other chronic pain; M54.50 Low back pain, unspecified; M79.18 Myalgia, other site; R20.0 Anesthesia of skin; K21.9 Gastro-esophageal reflux disease without esophagitis; F32.A Depression, unspecified; F41.9 Anxiety disorder, unspecified; F17.290 Nicotine dependence, other tobacco product, uncomplicated; Z79.899 Other long term (current) drug therapy
CPT/HCPCS: 99283

== ENCOUNTER 2024-12-07 08:21 | Emergency (ER) | payer MEDICAID, SELFPAY ==
[2024-12-07 08:22] VITALS: BP 170/110; PULSE 73; RESP 14; TEMP 36.6; O2SAT 98; BMI 40.8
--- NOTE | 2024-12-07 09:01 | EDS_ITS ---
HPI History of Present Illness Chief Complaint: Lower Extremity Injury Informant: patient Onset/Context/Timing Onset: Month(s) Context: Gradual Onset Timing: Continuous Quality: Aching Location: Right foot and right ankle Worsened by: Weightbearing Relieved by: Nothing Narrative Narrative: Patient presents with pain in her right foot and right ankle. Patient states she has degenerative disc disease in her back. Patient states she has back pain radiating to her right foot and ankle. Patient denies any trauma or injury. Patient states her pain is worse with weightbearing. Patient states she does feel off balance at times. Patient denies any paresthesias or weakness. Patient states it feels like something in her foot that is broken or out of place. Patient also admits to a headache. [facility] Medical History Arthritis Pancreatitis GERD (gastroesophageal reflux disease) Home Medications ?Medication ?Instructions ?Recorded ?Last Taken ?Type omeprazole 40 mg capsule,delayed 40 mg PO DAILY Unknown History release celecoxib 200 mg capsule 200 mg PO BID 10/27/24 Unkno wn History duloxetine 60 mg capsule,delayed 60 mg PO DAILY Unknown History release furosemide 20 mg tablet 20 mg PO DAILY PRN swelling 10/27/24 Unknown History prednisone 20 mg tablet 40 mg (2 x 20 mg) PO DAILY 6 days 10/27/24 Unknown Rx #12 tabs doxycycline monohydrate 100 mg 100 mg PO BID #14 CAPSU LES 11/15/24 Unknown Rx capsule Allergy/AdvReac Type Severity Reaction Status Date / Time amoxicillin Allergy Unknown Verified 12/07/24 08:22 azithromycin Allergy Upset Verified 12/07/24 08:22 Stomach cephalexin (From Keflex) Allergy Hives Verified 12/07/24 08:22 cephalexin monohydrate (From Allergy Swelling Verified 12/07/24 08:22 Keflex) erythromycin base Allergy Unknown Verified 12/07/24 08:22 ibuprofen AdvReac Upset Verified 12/07/24 08:22 Stomach tramadol AdvReac Nausea/Vom/ Verified 12/07/24 08:22 Diarrhea Surgical History History of 3 sections History of vocal cord polypectomy Hx of cholecystectomy Social History housing: house Smoking Status: Current every day smoker tobacco type: e-cigarettes ROS ROS ED Constitutional Constitutional ED: Reports chills and subjective; Denies fever(s) Eyes Eyes: Reports blurry vision; Denies diplopia ENT ENT ED: Denies rhinorrhea or sore throat Cardiovascular Cardiovascular: Denies chest pain or palpitations Respiratory/Chest Respiratory/Chest: Denies cough or dyspnea Gastrointestinal Gastrointestinal: Denies nausea or vomiting Genitourinary Genitourinary ED: Denies dysuria or hematuria Musculoskeletal Musculoskeletal: Reports back pain and neck pain Integumentary Denies abscess or rash Neurologic Neurologic: Reports headache(s); Denies weakness Allergic/Immunologic Allergic/Immunologic ED: Denies mouth swelling or urticaria EXAM Physical Exam Const Vital Signs: 12/07/24 08:22 Temperature 98 F Temperature Source Temporal Pulse Rate 73 Respiratory Rate 14 Blood Pressure 170/110 H Blood Pressure Mean 130 Pulse Ox 98 Oxygen Delivery Method Room Air Positive well nourished and well developed Constitutional Narrative: Patient was resting in the bed and sleeping when I walked in the room. Patient has a BMI of 40.8. General Appearance ED: well developed and NAD HEENT Reports moist mucous membranes Neck supple and no JVD Resp normal respiratory effort and clear to auscultation bilaterally Cardio regular rate and regular rhythm GI non-tender and non-distended Palpation: soft Back/Spine Back/Spine Narrative: There is mild tenderness of the right lumbar paraspinal muscles. There is no midline tenderness. There is no bony crepitance or step-off. There is good range of motion. Straight leg raises were negative bilaterally. Strength is 5/5 bilateral lower extremities. There are no sensory deficits. Extremity Extremity Narrative: There is tenderness and edema over the right ankle and right foot. There is no ecchymosis. There is no deformity noted. Range of motion was limited in all motions of the right ankle secondary to pain. Sensation was intact to light touch in all digits. Capillary refill was less than 2 seconds in all digits. Pedal pulses are equal bilaterally. Neuro oriented x3, CN's II-XII intact bilaterally and no sensory deficits noted Sensorium / Orientation: alert Motor Exam: strength 5/5 throughout Psych mental status grossly normal MDM MDM MDM Narrative Medical decision making narrative: Differential diagnosis includes degenerative arthritis, fracture, sprain, contusion, and radiculopathy. X-rays of the right foot and right ankle will be obtained to assess for fracture and degenerative arthritis. Radiography Diagnostic Testing: Clinical Impression(s) from Imaging Studies Ankle X-Ray 12/07/24 09:30 IMPRESSION: No fracture. Soft tissue swelling is present. Reading Location: [facility] Foot X-Ray 12/07/24 09:30 IMPRESSION: No evidence of acute injury. Plantar spur. Reading Location: [facility] X-rays of the right ankle were obtained. There are 3 views. On my independent interpretation, there is no acute fracture or dislocation noted. There are no degenerative changes noted. Radiologist also interpreted the x-rays and agrees. X-rays of the right foot were obtained. There are 3 views. My independent interpretation, there is no acute fracture or dislocation noted. There is no soft tissue swelling noted. There are no degenerative changes noted. Radiologist also interpreted the x-rays and agrees. Treatment and Re-Evaluation :: Patient was advised of her findings. Patient was instructed to ice and elevate her right foot. Patient was instructed to follow-up with her primary care physician and personal lines insurance agent in 5 to 7 days. Patient was instructed continue her medications as previously prescribed. Patient was instructed to return if worse in any way. Patient understood and was agreeable with the plan. All questions were answered. Discharge Plan Triage Chief Complaint: Lower Extremity Injury ED Provider: Ignacio Pearson Dx/Rx/DC Orders Clinical Impression: Right foot pain, GERD (gastroesophageal reflux disease), Nicotine vapor product user Instructions: ED Foot Sprain, ED Pain, Acute, Uncertain Cause Prescriptions: No Action omeprazole 40 MG capsule,delayed release(DR/EC) 40 mg PO DAILY celecoxib 200 mg capsule 200 mg PO BID furosemide 20 mg tablet 20 mg PO DAILY PRN (Reason: swelling) duloxetine 60 mg capsule,delayed release(DR/EC) 60 mg PO DAILY prednisone 20 mg tablet 40 mg PO DAILY 6 Days Qty: 12 0RF doxycycline monohydrate 100 mg capsule 100 mg PO BID Qty: 14 0RF Primary Care Provider: Kia Chappell NP Referrals: Kia Chappell NP, [facility] [Primary Care Provider] - 5-7 Days Print Language: Tongan Disposition Disposition: Home, Self Care
--- OUTSIDE RECORDS SUMMARY | 2024-12-07 09:27 | XMS RPT_ITS | CCD ---
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 Name Role Phone CastorenaRenettaDrea, Kareem Z Primary Care Provider CASTORENA-DREA, FAREEDAH Referring Unavail able CASTORENA-DREA, [facility] Primary Care Unavail able [facility] Referring Unavail able CASTORENA-DREA, [facility] Primary Care Unavail able CASTORENA-DREA, [facility] Primary Care Unavail able CASTORENA-DREA, [facility] Referring Unavail able Castorena-Drea MD [facility] Primary Care Provi vannesa [facility], [facility] Primary [facility] Unava ilable WU DHUNGCHAZ, ASHEESH A Attending Unavailab le CASTORENA-DREA, NICKEED Z Primary Care Unava ilable WU DHUNGAT, ASHEESH A Attending Unavailab le Unavailable Primary Care Provider UnavailKIA Gore Primary Care Physician Care Physician, No Primary Primary Care Provider Unavailable Dr. Sd Desouza MD Emergency Provider Dr. Sd Desouza MD Attending Provider Dr. Ace Fox MD Emergency Provider [phone] Ta LIFE TEACHER-CKia Primary Care Provider WAGNER MAN Attending Unavailable KIA CASTELLANOS Primary Care Physician KIA CHAPPELL Primary Care Unavailable KIA CHAPPELL Attending Unavailable KIA CHAPPELL Attending Unavailable KIA CHAPPELL Primary Care Unavailable KIA CHAPPELL Primary Care Unavailable ASHER HANSEN Attending Unavailabl e CHAPPELL, KIA Primary Care Unavailable CHAPPELL, KIA Attending Unavailable CHAPPELL, KIA Attending Unavailable CHAPPELL, KIA Primary Care Unavailable CHAPPELL, KIA Attending Unavailable CHAPPELL, KIA Primary Care Unavailable CHAPPELL, KIA Primary Care Unavailable ASHER HANSEN Attending UnavailSd Stoddard Attending Unavailable Care Physician, No Primary Primary Care Unava ilable Care Physician, No Primary Primary Care Unava ilable Ignacio Pearson Attending Unavailable Chappell LIFE TEACHER, Kia Attending Unavailable Chappell LIFE TEACHER, Kia Referring Unavailable Care Physician, No Primary Primary Care Unava ilable Chappell LIFE TEACHER, Kia Primary Care Unavailable Chappell LIFE TEACHER, Kia Attending Unavailable KRAS, VAZQUEZ Attending Unavailable KRAS, VAZQUEZ Primary Care Unavailable Care Physician, No Primary Primary Care Unava ilable Provider, Ed Physician Attending Unavailab le Ta LIFE TEACHER, Kia Primary Care Unavailable Fox, Ace Attending Unavailable Chappell LIFE TEACHER, Kia Primary Care Unavailable Fox, Ace Attending Unavailable Allergies Allergy Classification Reported Allergen(s) Allergy Type Date of Onset Reaction(s) Facility Cephalosporins (antibiotic) (1 source) [facility]in [facility] 7 [facility] Macrolides (antibiotic) (1 source) Erythromycin Drug Allergy 4 Other (See Comments) [employer] NSAIDs (1 source) Ibuprofen Drug Allergy 4 Other (See Comments) [employer] Opioid Agonists (1 source) traMADol Drug Allergy 6 Other (See Comments) [facility] Penicillins (antibiotic) (1 source) Amoxicillin Drug Allergy 4 Other (See Comments) [employer] (20 sources) Amoxicillin; Translations: [amoxicillin] Drug Allergy 4 Other (See Comments), GI Upset, Stomach ache (finding) [employer] [place], [place] (20 sources) Cephalexin; Translations: [cephalexin] Drug Allergy 1 Swelling, Hives, Stomach ache (finding) [facility] [employer] [place], [place] (19 sources) Erythromycin; Translations: [ERYTHROMYCIN] Drug Allergy 1 Other (See Comments), [facility] [place] [place] ([facility]) Ibuprofen; Translations: [ibuprofen] Drug Allergy 4 Other (See Comments), GI Upset, Stomach ache (finding) [employer] [place], [place] (18 sources) traMADol; Translations: [tramadol] Drug Allergy 6 Other (See Comments), Stomach ache (finding) [place], [place] (6 sources) traMADol; Translations: [TRAMADOL HCL] Drug Allergy 6 Vomiting [facility] (8 sources) Azithromycin; Translations: [azithromycin] Drug Allergy 5 Stomach ache (finding) [facility] (4 sources) Cephalexin; Translations: [cephalexin monohydrate] Drug Allergy 5 Swelling [facility] (1 source) Amoxicillin Drug Allergy 5 [facility] (1 source) Azithromycin Drug Allergy 5 [facility] (1 source) Cephalexin Drug Allergy 5 [facility] (1 source) Erythromycin Drug Allergy 5 [facility] (1 source) Ibuprofen Drug Allergy 5 [facility] (1 source) traMADol Drug Allergy 5 [facility] Medications Current Medications Medication Drug Class(es) Dates Sig (Normalized) Sig (Original) acetaminophen 500 mg oral tablet (4 sources) Start: 02-14-2021 take 1 tablet by mouth four times daily as needed for pain acetaminophen (TYLENOL) 500 MG tablet Take 1 tablet by mouth 4 times daily as needed for Pain 360 tablet 1 02/14/2021 Active Start: 01-02-2019 take 2 tablets by mo [facility] every six hours as needed for pain acetaminophen (TYLENOL) 500 MG tablet Take 2 tablets by mouth every 6 hours as needed for Pain Maximum dose- 8 tablets/24 hours. 120 tablet 3 01/02/2019 Active Start: 02-24-2017 End: 01-02-2019 take 2 tablets by mouth every six hours as needed for pain acetaminophen (TYLENOL) 325 MG tablet Take 2 tablets by mouth every 6 hours as needed for Pain 60 tablet 1 02/24/2017 01/02/2019 Discontinued (LIST CLEANUP) [id number] 200 actuat albuterol 0.09 mg/actuat metered dose inhaler (9 sources) beta2-Adrenergic Agonist Start: 06-09-2023 take 2 puff(s) by inhalation four times daily as needed for wheezing albuterol sulfate HFA (VENTOLIN HFA) 108 (90 Base) MCG/ACT inhaler Inhale 2 puffs into the lungs 4 times daily as needed for Wheezing 54 g 1 06/09/2023 Active Start: 03-14-2022 take 2 puff(s) by in halation four times daily as needed for wheezing albuterol sulfate HFA (VENTOLIN HFA) 108 (90 Base) MCG/ACT inhaler Inhale 2 puffs into the lungs 4 times daily as needed for Wheezing 54 g 1 03/14/2022 Active Start: 08-02-2019 End: 10-18-2020 take 2 puff(s) by inhalation four times daily as needed for wheezing albuterol sulfate HFA (VENTOLIN HFA) 108 (90 Base) MCG/ACT inhaler Inhale 2 puffs into the lungs 4 times daily as needed for Wheezing 1 Inhaler 5 08/02/2019 10/18/2020 Discontinued (LIST CLEANUP) Start: 11-18-2017 take 2 puff(s) by in halation every four hours as needed for wheezing albuterol HFA (PROAIR HFA) 90 mcg/actuation inhaler Inhale 2 Puffs as instructed every 4 hours as needed for Wheezing/Shortness of Breath. 1 Inhaler 3 11/18/2017 Active brompheniramine maleate 0.4 mg/ml / dextromethorphan hydrobromide 2 mg/ml / pseudoephedrine hydrochloride 6 mg/ml oral solution (3 sources) alpha-Adrenergic Agonist, Uncompetitive Q-tckyrl-M-aspartate Receptor Antagonist, Sigma-1 Agonist Start: 03-14-2022 take 5 mL by mouth four times daily as needed for cough jwfesylmialyvgp-vdgvjvemxdadkxz-WZ (BROMFED DM) 2-30-10 MG/5ML syrup Take 5 mLs by mouth 4 times daily as needed for Congestion or Cough 90 mL 0 03/14/2022 Active Start: 06-09-2021 take 5 mL by mouth four times daily as needed for cough lgynskqqqfpllmy-pvygyeygrkzbkuu-ZL 2-30- 10 MG/5ML syrup Take 5 mLs by mouth 4 times daily as needed for Congestion or Cough 120 mL 0 06/09/2021 Active 24 hr buPROPion hydrochloride 150 mg extended release oral tablet (1 source) Aminoketone Start: 06-07-2023 buPROPion (WELLBUTRIN XL) 150 MG extended release tablet 06/07/2023 Active celecoxib 200 mg oral capsule (11 sources) Nonsteroidal Anti-inflammatory Drug Start: 10-27-2024 End: 10-27-2024 take 1 capsule by mouth twice daily Celecoxib 100 mg capsule Discontinued 100 mg PO TWICE A DAY October 27, 2024 12:00am October 27, 2024 9:57am Start: 10-12-2024 take 1 capsule by [facility] every twelve hours celecoxib (CELEBREX) 200 mg capsule Take 1 capsule by mouth every 12 hours. 10/12/2024 Active Start: 08-21-2024 End: 11-19-2024 take 1 capsule by mouth twice daily Celecoxib 200 mg capsule Active 200 mg PO TWICE A DAY October 27, 2024 12:00am clindamycin 300 mg oral capsule (3 sources) Lincosamide Antibacterial Start: 02-04-2021 End: 02-11-2021 take 1 capsule by mouth three times daily clindamycin (CLEOCIN) 300 MG capsule Take 1 capsule by mouth 3 times daily for 7 days 21 capsule 0 02/04/2021 02/11/2021 Active Start: 01-02-2019 End: 01-12-2019 take 1 capsule by mouth three times daily clindamycin (CLEOCIN) 300 MG capsule Take 1 capsule by mouth 3 times daily for 10 days 30 capsule 0 01/02/2019 01/12/2019 Active COMPOUNDED PRESCRIPTION (10 sources) Start: 07-26-2017 COMPOUNDED PRE SCRIPTION Knee high prescription hose 15-20 mmHg for right and left leg- wearing during the day- remove at night ICD I87.2 1 Packet 07/26/2017 Active Start: 07-02-2017 COMPOUNDED PRE SCRIPTION Knee high compression Hose 15-20 mmHg for right and left leg Wear during day, remove at night ICD I87.2 1 Packet 07/02/2017 Active cyclobenzaprine hydrochloride 5 mg oral tablet (2 sources) Muscle Relaxant Start: 03-10-2024 cyclobenzaprine 5 mg oral tablet See Instructions, 1 or 2 tab(s) Oral TID as needed for muscle spasm, # 30 tab(s), 0 Refill(s), Pharmacy: [facility] #[facility], Right sided sciatica Muscle spasm, 173, cm, 03/10/24 10:59:00 EST, Height, kg, 03/10/24 10:59:00 EST, Dosing Weight Start Date: 03/10/24 Status: Ordered DME MISCellaneous (1 source) Start: 05-05-2024 DME MISCellaneous See Instructions, Knee high compression stockings 20/30 mm Hg to bilateral lower extremities q Day, on upon waking and off at bedtime. Please dispense 2 pair., # 2 EA, 0 Refill(s), Pharmacy: [facility] #[id number], Venous insufficiency, 167, cm, 04/28/24 10:24:00 EST, Height, 120.3, kg, 04/28/24 10:24:00 EST, Dosing Weight Start Date: 05/05/24 Status: Ordered Quantity: 2.0 Unit: EA Repeat number: 1 Indications: Venous insufficiency (chronic) (peripheral); doxycycline monohydrate 100 mg oral capsule (4 sources) Tetracycline-c lass Drug Start: 11-15-2024 take 1 capsule by mouth twice daily Doxycycline Monohydrate 100 mg capsule Active 100 mg PO TWICE A DAY 14 November 15, 2024 12:00am Start: 03-24-2024 End: 04-03-2024 doxycycline hyclate 100 mg o ral tablet Dose : 100 mg = 1 tab(s), Oral, BID, X 10 day(s), # 20 tab(s), 0 Refill(s), 04/03/24 9:51:00 AM EST, Pharmacy: [facility], Bilateral lower leg cellulitis, 173, cm, 03/24/24 9:16:00 EST, Height, 121.8, kg, 03/24/24 9:03:00 EST, Dosing Weight Start Date: 03/24/24 Stop Date: 04/03/24 Status: Ordered DULoxetine 60 mg delayed release oral capsule (11 sources) Serotonin and Norepinephrine Reuptake Inhibitor Start: 10-27-2024 DULoxetine (CYMBALTA) 60 mg capsule 60 mg. 10/27/2024 Active Start: 09-22-2021 DULoxetine (CY MBALTA) 30 MG extended release capsule 60 mg 0 09/22/2021 Active Start: 09-22-2021 DULoxetine (CY MBALTA) 30 MG extended release capsule ergocalciferol 1.25 mg oral capsule (3 sources) Provitamin D2 Compound Start: 04-05-2022 take 1 capsule by mouth every week vitamin D (ERGOCALCIFEROL) 1.25 MG (94100 UT) CAPS capsule Indications: Vitamin D deficiency Take 1 capsule by mouth once a week 4 capsule 5 04/05/2022 Active Start: 12-02-2021 take 1 capsule by mo uth every week vitamin D (ERGOCALCIFEROL) 1.25 MG (54391 UT) CAPS capsule Indications: Vitamin D deficiency Take 1 capsule by mouth once a week 4 capsule 5 12/02/2021 Active fexofenadine hydrochloride 180 mg oral tablet (5 sources) Histamine-1 Receptor Antagonist Start: 06-17-2017 take 1 tablet by mouth once daily fexofenadine (SINDY) 180 mg tablet Take 1 tablet by mouth once daily. 30 tablet 06/17/2017 Active fluticasone propionate 0.05 mg/actuat metered dose nasal spray (6 sources) Corticosteroid Start: 11-18-2017 take 1 spray(s) nasal route once daily fluticasone (FLONASE) 50 mcg/actuation nasal spray Use 1 [place] in each nostril once daily. 1 Bottle 3 11/18/2017 Active Start: 08-15-2015 End: 01-02-2019 fluticasone (FLONASE) 50 MCG /ACT nasal spray 1 spray by Nasal route daily 1 Bottle 3 08/15/2015 01/02/2019 Discontinued (LIST CLEANUP) gabapentin 300 mg oral capsule (1 source) Anti-epileptic Agent Start: 11-27-2024 End: 02-25-2025 gabapentin 300 mg oral capsule Dose : 300 mg = 1 cap(s), Oral, TID, # 270 cap(s), 0 Refill(s), Pharmacy: [facility], Low back pain radiating to right leg History of sciatica, 167, cm, 11/27/24 11:04:00 EDT, Height, 113.4, kg, 11/27/24 11:04:00 EDT, Dosing Weight Start Date: 11/27/24 Stop Date: 02/25/25 Status: Ordered Quantity: 270.0 Unit: cap(s) Repeat number: 1 Indications: Low back pain, unspecified; Personal history of other diseases of the nervous system and sense organs; hydroCHLOROthiazide 25 mg oral tablet (2 sources) Thiazide Diuretic Start: 03-24-2024 End: 06-22-2024 hydroCHLOROthiazide 25 mg oral tablet Dose : 25 mg = 1 tab(s), Oral, qDay, # 90 tab(s), 0 Refill(s), Pharmacy: [facility], Venous insufficiency of both lower extremities, 173, cm, 03/24/24 9:16:00 EST, Height, kg, 03/24/24 9:03:00 EST, Dosing Weight Start Date: 03/24/24 Stop Date: 06/22/24 Status: Ordered hydrocortisone 10 mg/ml topical cream (1 source) Corticosteroid Start: 01-01-2024 End: 01-08-2024 hydrocortisone 1 % cream APPLY TO AFFECTED AREA BID FOR 10 DAYS 28 g 01/01/2024 01/08/2024 Active hydrocortisone 10 mg/ml / neomycin 3.5 mg/ml / polymyxin b [id number] unt/ml otic suspension (1 source) Aminoglycoside Antibacterial, Polymyxin-class Antibacterial, Corticosteroid Start: 07-28-2019 End: 08-04-2019 vpkiodil-rjzlxsoro-goz rocortisone (CORTISPORIN) [id number] otic suspension Indications: Acute otitis externa of right ear, unspecified type Place 4 drops into the right ear 4 times daily for 7 days 1 Bottle 0 07/28/2019 08/04/2019 Active indomethacin 75 mg extended release oral capsule (14 sources) Nonsteroidal Anti-inflammatory Drug Start: 01-12-2018 End: 04-10-2024 take 1 capsule by mouth twice daily at mealtime indomethacin ER 75 mg CR capsule TAKE 1 CAPSULE BY MOUTH TWICE DAILY WITH MEALS 60 capsule 3 01/12/2018 Active Start: 10-08-2015 End: 04-10-2024 take 3 capsules by mouth twice daily at mealtime Indomethacin 25 MG capsule Discontinued 75 mg PO TWICE DAILY WITH MEALS October 08, 2015 12:00am April 10, 2024 6:52pm lactic acid 50 mg/ml topical lotion (2 sources) Start: 03-24-2024 End: 04-23-2024 Lac-Hydrin 5 topical lotion Apply 1 adilson, Topical, qDay, # 120 gram(s), 0 Refill(s), Pharmacy: [facility], Lotion, 173, cm, 03/24/24 9:16:00 EST, Height, 121.8, kg, 03/24/24 9:03:00 EST, Dosing Weight Start Date: 03/24/24 Stop Date: 04/23/24 Status: Ordered lurasidone hydrochloride 40 mg oral tablet (18 sources) Atypical Antipsychotic Start: 03-16-2022 LATUDA 40 MG TABS tablet 03/16/2022 Active Start: 10-30-2019 LATUDA 80 MG T ABS tablet Start: 06-08-2019 take 2 tablets by mo [facility] once daily lurasidone (LATUDA) 20 MG TABS tablet Indications: Depression with anxiety Take 2 tablets by mouth daily 30 tablet 1 06/08/2019 Active Start: 05-22-2019 End: 04-10-2024 take 1 tablet by mouth once daily Lurasidone 60 MG tablet Discontinued 60 mg PO DAILY May 22, 2019 1:00am April 10, 2024 6:52pm Start: 01-03-2019 take 2 tablets by [facility] once daily lurasidone (LATUDA) 20 MG TABS tablet Take 2 tablets by mouth daily 30 tablet 1 01/03/2019 Active take 1 tablet by [facility] once daily lurasidone (LATUDA) 20 MG TABS tablet Indications: Depression with anxiety Take 20 mg by mouth daily 0 Active methylPREDNISolone 4 mg oral tablet (1 source) Corticosteroid Start: 08-25-2021 End: 08-31-2021 methylPREDNISolone (MEDROL, JOSE GUADALUPE,) 4 MG tablet Take by mouth. 1 kit 0 08/25/2021 08/31/2021 Active naproxen 500 mg oral tablet (11 sources) Nonsteroidal Anti-inflammatory Drug Start: 11-20-2022 take 1 tablet by mouth twice daily naproxen (NAPROSYN) 500 MG tablet Take 1 tablet by mouth 2 times daily for 7 days 14 tablet 11/20/2022 Active Start: 02-27-2021 End: 03-24-2022 take 1 tablet by mouth twice daily at mealtime naproxen (NAPROSYN) 500 MG tablet TAKE 1 TABLET BY MOUTH TWICE A DAY WITH MEALS 60 tablet 0 02/23/2022 03/14/2022 Discontinued Start: 07-02-2017 take 1 tablet by [facility] twice daily naproxen (NAPROSYN) 500 MG tablet Take 1 tablet by mouth 2 times daily for 7 days 14 tablet 0 07/02/2017 Active 24 hr nicotine 0.583 mg/hr transdermal system (1 source) Cholinergic Nicotinic Agonist Start: 01-03-2019 apply 1 dose transdermal route every twenty-four hours nicotine (NICODERM CQ) 14 MG/24HR Indications: Cigarette smoker motivated to quit Place 1 patch onto the skin every 24 hours 30 patch 3 01/03/2019 Active omeprazole 40 mg delayed release oral capsule (20 sources) Proton Pump Inhibitor Start: 11-27-2024 End: 02-25-2025 omeprazole 40 mg oral delayed release capsule Dose : 40 mg = 1 cap(s), Oral, qDay, # 90 cap(s), 0 Refill(s), Pharmacy: [facility], GERD (gastroesophageal reflux disease), 167, cm, 11/27/24 11:04:00 EDT, Height, kg, 11/27/24 11:04:00 EDT, Dosing Weight Start Date: 11/27/24 Stop Date: 02/25/25 Status: Ordered Quantity: 90.0 Unit: cap(s) Repeat number: 1 Indications: Gastro-esophageal reflux disease without esophagitis; Start: 11-13-2023 take 1 capsule by mo [facility] twice daily before mealtime omeprazole (PRILOSEC) 20 MG delayed release capsule Indications: Gastroesophageal reflux disease without esophagitis TAKE 1 CAPSULE BY MOUTH TWICE A DAY BEFORE MEALS 60 capsule 1 11/13/2023 Active Start: 07-06-2022 take 1 capsule by mo uth twice daily before mealtime omeprazole (PRILOSEC) 20 MG delayed release capsule Indications: Gastroesophageal reflux disease without esophagitis Take 1 capsule by mouth 2 times daily (before meals) 60 capsule 5 07/06/2022 Active Start: 01-19-2022 End: 03-14-2022 take 1 capsule by mouth twice daily before mealtime omeprazole (PRILOSEC) 20 MG delayed release capsule Take 1 capsule by mouth 2 times daily (before meals) 60 capsule 0 02/23/2022 03/14/2022 Discontinued (LIST CLEANUP) Start: 12-22-2021 take 1 capsule by mo [facility] twice daily before mealtime omeprazole (PRILOSEC) 20 MG delayed release capsule Indications: Medial epicondylitis of right elbow TAKE 1 CAPSULE BY MOUTH 2 TIMES DAILY (BEFORE MEALS). 60 capsule 0 12/22/2021 Active Start: 09-24-2021 take 1 capsule by [facility] twice daily before mealtime omeprazole (PRILOSEC) 20 MG delayed release capsule Indications: Medial epicondylitis of right elbow Take 1 capsule by mouth 2 times daily (before meals) 60 capsule 0 09/24/2021 Active Start: 02-14-2021 End: 03-14-2022 take 2 capsules by mouth twice daily before mealtime omeprazole (PRILOSEC) 20 MG delayed release capsule Take 2 capsules by mouth 2 times daily (before meals) 180 capsule 1 02/14/2021 03/14/2022 Discontinued (LIST CLEANUP) Start: 10-18-2020 End: 02-04-2021 take 1 capsule by mouth every twelve hours omeprazole (PRILOSEC) 20 MG delayed release capsule Take 1 capsule by mouth every 12 hours for 14 days 28 capsule 0 10/18/2020 02/04/2021 Discontinued (LIST CLEANUP) Start: 05-22-2019 End: 04-10-2024 Omeprazole 40 MG capsule,del ayed release(DR/EC) Discontinued 1 {tbl} PO DAILY 30 0 May 22, 2019 1:00am April 10, 2024 6:52pm Start: 12-15-[address] [facility] once daily omeprazole (PRILOSEC) 20 MG delayed release capsule TAKE 1 CAPSULE BY MOUTH DAILY 30 capsule 3 12/15/2018 Active Start: 06-17-2017 End: 10-18-2020 take 1 capsule by mouth once daily Omeprazole 40 mg capsule Take 1 capsule by mouth once daily. 90 capsule 3 06/17/2017 Active 12 hr orphenadrine citrate 100 mg extended release oral tablet (17 sources) Muscle Relaxant Start: 03-14-2018 End: 04-10-2024 take 1 tablet by mouth twice daily orphenadrine ER (NORFLEX) 100 mg tablet Take 1 tablet by mouth twice daily. 60 tablet 3 03/16/2018 Active microencapsulated potassium chloride 20 meq extended release oral tablet (7 sources) Start: 04-01-2022 take 1 tablet by mouth once daily potassium chloride (KLOR-CON M) 20 MEQ extended release tablet Indications: Localized edema Take 1 tablet by mouth daily 30 tablet 5 04/01/2022 Active Start: 01-30-2020 take 1 tablet by [facility] once daily potassium chloride (KLOR-CON M) 20 MEQ extended release tablet Indications: Localized edema TAKE 1 TABLET BY MOUTH DAILY 30 tablet 1 01/30/2020 Active prazosin 1 mg oral capsule (1 source) alpha-Adrenergic Mamadou Start: 06-08-2022 prazo sin (MINIPRESS) 1 MG capsule predniSONE 10 mg oral tablet (9 sources) Start: 11-22-2024 predniSONE 10 mg oral tablet See Instructions, 60 mg Oral once daily, then 50 mg qday, then 40 mg qday,then 30 mg, then 20 mg, then 10 mg. One day at each dose., # 21 tab(s), 0 Refill(s), Pharmacy: [facility], Sciatica, 167, cm, 10/31/24 15:25:00 EDT, Height, kg, 10/31/24 15:25:00 EDT, Dosing Weight Start Date: 11/22/24 Status: Ordered Quantity: 21.0 Unit: tab(s) Repeat number: 1 Indications: Sciatica, unspecified side; Start: 10-27-2024 take 2 tablets by [facility] once daily Prednisone 20 mg tablet Active 40 mg PO DAILY 12 6 0 October 27, 2024 12:00am Start: 03-02-2024 End: 03-11-2024 predniSONE (DELTASONE) 10 mg tablet Indications: Sciatica, right side Take 4 tabs daily for 3 days, then 2 tabs daily for 3 days, then 1 tab daily for 3 days with food. 21 tablet 03/02/2024 03/11/2024 Active Start: 01-01-2024 End: 01-11-2024 take 3 tablets by mouth once daily predniSONE (DELTASONE) 10 MG tablet Take 3 tablets by mouth daily for 10 days 30 tablet 01/01/2024 01/11/2024 Active Start: 02-04-2021 End: 02-04-2021 predniSONE (DELTASONE) table t 60 mg Start: 02-04-2021 End: 02-09-2021 take 1 tablet by mouth twice daily predniSONE (DELTASONE) 20 MG tablet Take 1 tablet by mouth 2 times daily for 5 days 10 tablet 0 02/04/2021 02/09/2021 Active Start: 12-07-2017 End: 03-02-2024 take 1 tablet by mouth once daily predniSONE (DELTASONE) 20 mg tablet Indications: Chronic bilateral low back pain with left-sided sciatica Take 1 tablet by mouth once daily. 5 tablet 12/07/2017 03/02/2024 Discontinued propranolol hydrochloride 10 mg oral tablet (1 source) beta-Adrenergic Mamadou Start: 06-07-2023 propranolol (INDERAL) 10 MG tablet 06/07/2023 Active sodium chloride 0.111 meq/ml nasal solution (2 sources) Start: 03-14-2022 sodium chloride (OCEAN) 0.65 % nasal spray 1 spray by Nasal route as needed for Congestion 88 mL 0 03/14/2022 Active sucralfate 1000 mg oral tablet (2 sources) Aluminum Complex Start: 10-18-2020 take 1 tablet by mouth four times daily sucralfate (CARAFATE) 1 GM tablet Take 1 tablet by mouth 4 times daily 120 tablet 3 10/18/2020 Active sulfamethoxazole 800 mg / trimethoprim 160 mg oral tablet (1 source) Dihydrofolate Reductase Inhibitor Antibacterial, Sulfonamide Antimicrobial Start: 11-16-2024 End: 11-21-2024 take 1 tablet by mouth twice daily sulfamethoxazole-t rimethoprim (BACTRIM DS) 800-160 mg per tablet Take 1 tablet by mouth two times a day for 5 days. 10 tablet 11/16/2024 11/21/2024 Active triamcinolone acetonide 0.001 mg/mg topical ointment (11 sources) Corticosteroid Start: 06-09-2023 triamcinolone (KENALOG) 0.1 % ointment Apply topically 2 times daily to affected area. 80 g 3 06/09/2023 Active Start: 07-06-2022 triamcinolone (KENALOG) 0.1 % ointment Apply topically 2 times daily to affected area. 80 g 3 07/06/2022 Active Start: 11-06-2021 triamcinolone (KENALOG) 0.1 % ointment Apply topically 2 times daily to affected area. 80 g 1 11/06/2021 Active Start: 02-27-2021 triamcinolone (KENALOG) 0.1 % ointment Apply topically 2 times daily to affected area. 80 g 5 02/27/2021 Active Start: 11-06-2019 triamcinolone (KENALOG) 0.1 % ointment Apply topically 2 times daily to affected area. 80 g 5 11/06/2019 Active Start: 06-08-2019 triamcinolone (KENALOG) 0.1 % ointment Apply topically 2 times daily to affected area. 80 g 2 06/08/2019 Active Start: 01-03-2019 triamcinolone (KENALOG) 0.1 % ointment Indications: Dermatitis Apply topically 2 times daily to affected area. 80 g 0 01/03/2019 Active Start: 08-18-2018 triamcinolone (KENALOG) 0.1 % cream Apply topically 2 times daily for up to 2 weeks then as needed for flareups. 80 g 3 08/18/2018 Active Completed/Discontinued Medications Medication Drug Class(es) Dates Sig (Normalized) Sig (Original) amitriptyline hydrochloride 25 mg oral tablet (6 sources) Tricyclic Antidepressant Start: 05-22-2019 End: 04-10-2024 Amitriptyline 25 MG tablet Discontinued 1 - 2 {tbl} PO DAILY NEEDED as needed for Insomnia May 22, 2019 1:00am April 10, 2024 6:51pm amitriptyline (E LAVIL) 25 MG tablet Take 25 mg by mouth as needed 0 Active ARIPiprazole 5 mg oral tablet (8 sources) Atypical Antipsychotic Start: 10-08-2015 End: 04-10-2024 take 1 tablet by mouth once daily Aripiprazole 5 MG tablet Discontinued 5 mg PO DAILY October 08, 2015 12:00am April 10, 2024 6:51pm benzonatate 100 mg oral capsule (6 sources) Non-narcotic Antitussive Start: 05-22-2019 End: 04-10-2024 take 1 capsule by mouth three times daily as needed for cough Benzonatate 100 MG capsule Discontinued 100 mg PO 3 TIMES DAILY NEEDED as needed for Cough 21 0 May 22, 2019 1:00am April 10, 2024 6:52pm Start: 04-26-2018 End: 04-10-2024 take 1 capsule by mouth four times daily as needed for cough Benzonatate 100 MG capsule Discontinued 100 mg PO 4 TIMES DAILY NEEDED as needed for Cough 20 0 April 26, 2018 1:00am April 10, 2024 6:51pm cetirizine hydrochloride 10 mg oral tablet (1 source) Histamine-1 Receptor Antagonist Start: 01-27-2016 End: 01-02-2019 take 1 tablet by mouth once daily cetirizine (ZYRTEC ALLERGY) 10 MG tablet Take 1 tablet by mouth daily 30 tablet 3 01/27/2016 01/02/2019 Discontinued (LIST CLEANUP) citalopram 40 mg oral tablet (20 sources) Serotonin Reuptake Inhibitor Start: 01-03-2019 End: 04-10-2024 take 1 tablet by mouth once daily Citalopram 40 MG tablet Discontinued 40 mg PO DAILY 30 0 May 22, 2019 1:00am April 10, 2024 6:52pm Start: 10-08-2015 End: 04-10-2024 take 1 tablet by mouth once daily Citalopram 20 MG tablet Discontinued 20 mg PO DAILY October 08, 2015 12:00am April 10, 2024 6:52pm 1 ml dexamethasone phosphate 10 mg/ml injection (1 source) Corticosteroid Start: 01-01-2024 End: 01-01-2024 inject 10 mg by intramuscular injection once 10 mg, IntraMUSCular, ONCE, On 01/01/24 at 1930, For 1 dose Start: 01-01-2024 End: 01-01-2024 inject 10 mg by intramuscular injection once 10 mg, IntraMUSCular, ONCE, On 01/01/24 at 1930, For 1 dose diclofenac sodium 75 mg delayed release oral tablet (7 sources) Nonsteroidal Anti-inflammatory Drug Start: 03-24-2024 End: 10-27-2024 take 1 tablet by mouth twice daily Diclofenac Sodium 75 mg tablet,delayed release (DR/EC) Discontinued 75 mg PO TWICE A DAY April 10, 2024 1:00am October 27, 2024 9:57am Start: 06-20-2019 End: 10-18-2020 diclofenac sodium 1 % GEL In dications: Arthralgia of right temporomandibular joint Apply 2 g topically 4 times daily 3 Tube 1 06/20/2019 10/18/2020 Discontinued (LIST CLEANUP) furosemide 40 mg oral tablet (17 sources) Loop Diuretic Start: 04-28-2024 End: 05-28-2024 furosemide 40 mg oral tablet Dose : 40 mg = 1 tab(s), Oral, qDay, PRN Swelling, # 30 tab(s), 0 Refill(s), Pharmacy: [facility], Venous insufficiency of both lower extremities Bilateral lower extremity edema, 167, cm, 04/28/24 10:24:00 EST, Height, kg, 04/28/24 10:24:00 EST, Dosing Weight Start Date: 04/28/24 Stop Date: 05/28/24 Status: Ordered Quantity: 30.0 Unit: tab(s) Repeat number: 1 Indications: Venous insufficiency (chronic) (peripheral); Localized edema; Start: 01-30-2020 take 1 tablet by davis th once daily as needed furosemide (LASIX) 40 MG tablet Indications: Localized edema TAKE 1 TABLET BY MOUTH DAILY NEEDED FOR SWELLING 30 tablet 1 01/30/2020 Active Start: 06-17-2017 take 1 tablet by davis th once daily furosemide (LASIX) 20 mg tablet Take 1 tablet by mouth once daily. 90 tablet 3 06/17/2017 Active loratadine 10 mg oral tablet (7 sources) Start: 08-15-2015 End: 10-27-2024 take 1 tablet by mouth once daily as needed Loratadine 10 MG tablet Discontinued 10 mg PO DAILY as needed for allergy symptoms April 10, 2024 1:00am October 27, 2024 9:57am spironolactone 50 mg oral tablet (3 sources) Aldosterone Antagonist Start: 10-08-2015 End: 04-10-2024 take 1 tablet by mouth once daily Spironolactone 50 MG tablet Discontinued 50 mg PO DAILY October 08, 2015 12:00am April 10, 2024 6:53pm Problems Active Problems Problem Classification Problem Date Documented Date Episodic/Chronic Administrative/socia l admission (3 sources) Repeated prescription; Translations: [Encounter for issue of repeat prescription] 07-28-2019 Episodic Allergic reactions (4 sources) Contact dermatitis due to Genus Toxicodendron; Translations: [Unspecified contact dermatitis due to plants, except food] Onset: 12-08-2023 01-01-2024 Episodic Anxiety disorders (16 sources) Anxiety; Translations: [Mixed anxiety and depressive disorder] 08-19-2018 Chronic Diseases of mouth; excluding dental (2 sources) Parotitis; Translations: [Acute sialoadenitis] 11-15-2024 Episodic Disorders of teeth and jaw (1 source) Gingivitis; Translations: [Chronic gingivitis, plaque induced] Chronic Esophageal disorders (15 sources) Gastroesophageal reflux disease; Translations: [Gastro-esophageal reflux disease without esophagitis] 02-27-2016 Chronic Gastritis and duodenitis (1 source) Gastroduodenitis; Translations: [Gastroduodenitis, unspecified, without bleeding] Episodic Malaise and fatigue (1 source) Fatigue; Translations: [Fatigue, unspecified type] Episodic Mood disorders (20 sources) Recurrent major depressive episodes, mild ; Translations: [Bipolar disorder, most recent episode depression] Onset: 08-05-2015 Resolved: 12-06-2015 12-06-2015 Chronic Nonmalignant breast conditions (10 sources) Lump in left breast; Translations: [Unspecified lump in the left breast, unspecified quadrant] Onset: 12-02-2010 12-02-2010 Episodic Osteoarthritis (1 source) Arthritis of right knee; Translations: [Unilateral primary osteoarthritis, right knee] Chronic Other connective tissue disease (1 source) Swelling of bilateral feet; Translations: [Other specified soft tissue disorders] 03-02-2024 Episodic Other connective tissue disease (10 sources) Plantar fasciitis; Translations: [Plantar fascial fibromatosis] Onset: 12-02-2010 12-02-2010 Episodic Other connective tissue disease (1 source) Musculoskeletal test abnormal; Translations: [Other symptoms and signs involving the musculoskeletal system] Episodic Other connective tissue disease (1 source) Myofascial pain syndrome of lumbar spine; Translations: [Myalgia, other site] 11-20-2024 Episodic Other connective tissue disease (1 source) Other specified soft tissue disorders; Translations: [Other specified soft tissue disorders] Onset: 11-20-2024 Episodic Other diseases of kidney and ureters (7 sources) Cyst of kidney; Translations: [Renal cyst, left] Onset: 12-02-2015 Resolved: 12-26-2015 01-27-2016 Other diseases of veins and lymphatics (10 sources) Venous insufficiency of leg; Translations: [Venous insufficiency (chronic) (peripheral)] Onset: 06-03-2010 06-03-2010 Episodic Other diseases of veins and lymphatics (5 sources) Disorder of vein of lower extremity 03-10-2024 Episodic Other ear and sense organ disorders (3 sources) Otalgia, right ear; Translations: [Earache on right] 07-28-2019 Episodic Other ear and sense organ disorders (1 source) Acute otitis externa of right ear; Translations: [Acute otitis externa of right ear, unspecified type] Other non-traumatic joint disorders (4 sources) Pain in elbow; Translations: [Pain in right elbow] Episodic Other non-traumatic joint disorders (3 sources) Ankle pain; Translations: [Pain in right ankle and joints of right foot] 04-18-2024 Episodic Other non-traumatic joint disorders (1 source) Pain in left elbow; Translations: [Pain in left elbow] Onset: 11-01-2024 Episodic Other nutritional; endocrine; and metabolic disorders (2 sources) Body mass index 30+ - obesity 11-15-2024 Chronic Other skin disorders (1 source) Facial swelling ; Translations: [Localized swelling, mass and lump, head] 11-11-2024 Episodic Other skin disorders (1 source) Closed comedone; Translations: [Acne vulgaris] 11-20-2024 Episodic Other skin disorders (1 source) Localized swelling, mass and lump, head; Translations: [Swelling of right side of face] Onset: 11-11-2024 Episodic Other upper respiratory disease (10 sources) Allergic rhinitis; Translations: [Allergic rhinitis, unspecified] Onset: 08-13-2010 08-13-2010 Chronic Other upper respiratory disease (1 source) Lesion of nose; Translations: [Other specified disorders of nose and nasal sinuses] 11-11-2024 Episodic Other upper respiratory disease (1 source) Other specified disorders of nose and nasal sinuses; Translations: [Sore in nose] Onset: 11-11-2024 Episodic Other upper respiratory infections (3 sources) Sinusitis; Translations: [Chronic sinusitis, unspecified] 04-27-2018 Chronic Other upper respiratory infections (6 sources) Viral upper respiratory tract infection; Translations: [Acute upper respiratory infection, unspecified] 07-28-2019 Episodic Paralysis (1 source) Hemiplegia of right dominant side; Translations: [Hemiplegia, unspecified affecting right dominant side] Chronic Residual codes; unclassified (9 sources) Localized edema; Translations: [Localized edema] Onset: 10-06-2019 10-06-2019 Episodic Residual codes; unclassified (3 sources) Peripheral edema; Translations: [Localized edema] 04-18-2024 Episodic Residual codes; unclassified (1 source) Edema of foot 08-21-2024 Episodic Skin and subcutaneous tissue infections (3 sources) Cellulitis of left foot; Translations: [Cellulitis of left lower limb] 03-15-2018 Episodic Spondylosis; intervertebral disc disorders; other back problems (20 sources) Herniation of nucleus pulposus of lumbar intervertebral disc; Translations: [Other intervertebral disc displacement, lumbar region] Onset: 07-02-2015 Resolved: 12-26-2015 08-05-2015 Chronic Spondylosis; intervertebral disc disorders; other back problems (20 sources) Sciatica; Translations: [Stenosis of lumbar vertebral foramen] Onset: 08-13-2010 Resolved: 02-27-2016 08-19-2018 Episodic Spondylosis; intervertebral disc disorders; other back problems (12 sources) Herniation of nucleus pulposus of lumbar intervertebral disc; Translations: [Stenosis of lumbar vertebral foramen] Onset: 07-02-2015 Resolved: 12-26-2015 01-27-2016 Substance-related disorders (11 sources) Smoker; Translations: [Nicotine dependence, unspecified, uncomplicated] Onset: 08-05-2015 08-05-2015 Chronic Unclassified (1 source) Screening status; Translations: [Screening cholesterol level] Viral infection (1 source) Viral disease; Translations: [Viral infection, unspecified] Episodic Past or Other Problems Problem Classification Problem Date Documented Date Episodic/Chronic Disorders of teeth and jaw (7 sources) Toothache; Translations: [Dental caries] Onset: 03-06-2011 03-06-2011 Episodic Other aftercare (5 sources) Drug therapy finding; Translations: [Other detention (current) drug therapy] Onset: 03-06-2011 03-06-2011 Episodic Other aftercare (1 source) Encounter for follow-up examination after completed treatment for conditions other than malignant neoplasm; Translations: [Encounter for follow-up examination after completed treatment for conditions other than malignant neoplasm] Onset: 02-23-2024 Episodic Other aftercare (1 source) Other long term care pharmacist (current) drug therapy; Translations: [Other long term care pharmacist (current) drug therapy] Onset: 02-23-2024 Episodic Other connective tissue disease (5 sources) Tendinitis; Translations: [Enthesopathy, unspecified] Onset: 12-07-2011 12-07-2011 Episodic Other diseases of kidney and ureters (10 sources) Acquired renal cystic disease; Translations: [Cyst of kidney, acquired] Onset: 12-06-2015 Resolved: 12-26-2015 12-26-2015 Episodic Other diseases of kidney and ureters (16 sources) Cyst of kidney; Translations: [Cyst of kidney, acquired] Onset: 12-02-2015 Resolved: 12-26-2015 01-27-2016 Episodic Other diseases of veins and lymphatics (5 sources) Stasis dermatitis; Translations: [Venous insufficiency (chronic) (peripheral)] Onset: 05-15-2010 05-15-2010 Episodic Other injuries and conditions due to external causes (1 source) Elevated urine levels of drugs, medicaments and biological substances; Translations: [Elevated urine levels of drugs, medicaments and biological substances] Onset: 02-23-2024 Episodic Other non-traumatic joint disorders (1 source) Knee pain; Translations: [Chronic pain of right knee] Onset: 06-11-2019 06-11-2019 Episodic Other non-traumatic joint disorders (8 sources) Pain in right knee; Translations: [Pain in joint, lower leg] Onset: 06-11-2019 10-06-2019 Episodic Other non-traumatic joint disorders (1 source) Pain in unspecified hip; Translations: [Pain in unspecified hip] Onset: 03-22-2024 Episodic Other screening for suspected conditions (not mental disorders or infectious disease) (3 sources) Patient encounter status; Translations: [Encounter for screening mammogram for malignant neoplasm of breast] Onset: 01-09-2022 Episodic Other upper respiratory disease (20 sources) Polyp of larynx; Translations: [Polyp of vocal cord and larynx] Onset: 11-01-2015 Resolved: 12-26-2015 12-26-2015 Episodic Residual codes; unclassified (11 sources) Dependent edema; Translations: [Edema, unspecified] Onset: 08-05-2015 Resolved: 10-06-2019 08-05-2015 Episodic Residual codes; unclassified (1 source) Localized edema; Translations: [Localized edema] Onset: 05-30-2024 Episodic Unclassified (2 sources) Onset: 10-03-2019 Resolved: 03-02-2021 10-03-2019 Results Test Name Value Interpretation Reference Range Facility XR KNEE 1 OR 2 VIEWS RIGHTon 11-28-2024 XR KNEE 1 OR 2 VIEWS RIGHT ORIGINAL EXAMINATION: TWO XRAY VIEWS OF THE RIGHT KNEE 11/27/2024 12:35 pm COMPARISON: None. HISTORY: ORDERING SYSTEM PROVIDED HISTORY: Reason for Exam: Right knee stiffness (chronic) decreased ROM FINDINGS: There is no fracture or dislocation of the right knee. No osseous lesion is present. The tibiofemoral and patellofemoral joint spaces are normal. Articular surfaces have normal contour. There is no joint effusion. No periarticular calcifications are present. There is no evidence of soft tissue abnormality. IMPRESSION: Normal right knee radiographs. Interpreted by: Kobi Allen MD Preliminary Report By: Kobi Allen MD Electronically signed By Kobi Allen MD Dictated Date: 11/28/2024 3:11:00 AM Prelim Date: 11/28/2024 3:12:07 AM Sign Date: 11/28/2024 3:12:07 AM Ordering Provider: KIA CHAPPELL [facility] XR SPINE LUMBOSACRAL 2 OR 3 VIEWSon 11-28-2024 XR SPINE LUMBOSACRAL 2 OR 3 VIEWS ORIGINAL EXAMINATION: 3 XRAY VIEWS OF THE LUMBAR SPINE 11/27/2024 12:34 pm COMPARISON: None. HISTORY: ORDERING SYSTEM PROVIDED HISTORY: Reason for Exam: Chronic low back pain with sciatica No known injury FINDINGS: There are 5 lumbar vertebrae. The lumbar spine alignment is normal. Vertebral bodies are normal in height with no fracture or osseous lesion. There is moderate narrowing of the L5-S1 intervertebral disc space with moderate degenerative spur formation. Other disc spaces are maintained. Posterior elements are intact. Facet joints appear normal. Sacroiliac joints have normal alignment. IMPRESSION: Moderate degenerative disc disease at L5-S1. Interpreted by: Kobi Allen MD Preliminary Report By: Kobi Allen MD Electronically signed By Kobi Allen MD Dictated Date: 11/28/2024 3:09:31 AM Prelim Date: 11/28/2024 3:10:50 AM Sign Date: 11/28/2024 3:10:50 AM Ordering Provider: KIA CHAPPELL [facility] [place]rell 11-21-2024 [facility] Telephone ([facility]) MARCY POSEY ([id number]) 1970 F Date Time Provider Department 11/21/24 YOSVANY LEE During your visit today, we recorded the following information about you: Yosvany Lee PA 11/21/2024 4:11 PM Signed Called patient as she called in to let us know she had a reaction to Bactrim. She states she was also on doxycycline at the same time. She did go to the emergency room for her reaction and was told to stop taking the Bactrim. She states the nose sore that she was seen for is now resolved. Advise she does not need further antibiotics at this time since her symptoms are now resolved if no sore returns follow-up with PCP Allergies As of Date: 11/21/2024 Noted Allergy Reaction AMOXICILLIN 06/20/2015 8 - GI Upset ERYTHROMYCIN 05/15/2010 4 - Hives IBUPROFEN 06/17/2017 8 - GI Upset KEFLEX (CEPHALEXIN) 05/15/2010 4 - Hives ULTRAM (TRAMADOL HCL) 06/20/2015 11 - Vomiting Date Reviewed: 03/02/2024 Reviewed by: Randi Sabillon MA - Fully Assessed Prescriptions as of 11/21/2024 - sulfamethoxazole-tri methoprim (BACTRIM DS) 800-160 mg per tablet Take 1 tablet by mouth two times a day for 5 days. - DULoxetine (CYMBALTA) 60 mg capsule 60 mg. - celecoxib (CELEBREX) 200 mg capsule Take 1 capsule by mouth every 12 hours. - orphenadrine ER (NORFLEX) 100 mg tablet Take 1 tablet by mouth twice daily. - indomethacin ER 75 mg CR capsule TAKE 1 CAPSULE BY MOUTH TWICE DAILY WITH MEALS - albuterol HFA (PROAIR HFA) 90 mcg/actuation inhaler Inhale 2 Puffs as instructed every 4 hours as needed for Wheezing/Shortness of Breath. - fluticasone (FLONASE) 50 mcg/actuation nasal spray Use 1 Converse in each nostril once daily. - COMPOUNDED PRESCRIPTION Knee high prescription hose 15-20 mmHg for right and left leg- wearing during the day- remove at night ICD I87.2 - COMPOUNDED PRESCRIPTION Knee high compression Hose 15-20 mmHg for right and left leg Wear during day, remove at night ICD I87.2 - furosemide (LASIX) 20 mg tablet Take 1 tablet by mouth once daily. - Omeprazole 40 mg capsule Take 1 capsule by mouth once daily. - fexofenadine (SINDY) 180 mg tablet Take 1 tablet by mouth once daily. - ARIPiprazole (ABILIFY) 5 mg tablet Take 5 mg by mouth once daily. - citalopram (CELEXA) 20 mg tablet Take 20 mg by mouth once daily. Problem List As Of Date 11/21/2024 Noted Resolved Venous stasis dermatitis [I87.2] 05/15/2010 Venous insufficiency of leg [I87.2] 06/03/2010 Sciatica of right side [M54.31] 08/13/2010 02/27/2016 Allergic rhinitis [J30.9] 08/13/2010 Breast mass, left [N63.20] 12/02/2010 Plantar fasciitis [M72.2] 12/02/2010 Dental abscess [K04.7] 03/06/2011 High risk medications (not anticoagulants) long*03/06/2011 Tendonitis [M77.9] 12/07/2011 GERD (gastroesophageal reflux disease) [K21.9] Depression [F32.A] Anxiety [F41.9] Bilateral sciatica [M54.31, M54.32] 08/13/2010 Encounter Status:Closed by YOSVANY LEE on 11/21/24 [facility] Emergency Department Summary on 11-20-2024 Emergency Department Summary [facility] Medical Records Department [address] [place] [address] Emergency Department Summary 11/20/24 MR#: [id number] Acct: [id number] Name: MARCY POSEY Rep #: [id number] : 1970 54 From: Ace Fox MD PCP: YONATAN Odom Status:PRE ER Location: ED HPI History of Present Illness Chief Complaint: Allergic Reaction Detail of Chief Complaint: Possible allergic reaction and sciatica . Informant: patient Onset/Context/Timing Onset: Today (Bumps on her face) and Weeks (Reported sciatic pain and low back pain) Context: Sudden Onset Timing: Continuous Quality: Patient with small whiteheads over her face. The back pain is a chronic is Location: Face and low back Current Severity: Not applicable Maximum Severity: Not applicable Worsened by: back pain is worse with movement Relieved by: Rest Associated Symptoms Associated Symptoms: No bowel or bladder dysfunction. No radicular pain. She reports foot drop Narrative Narrative: Patient is a 54-year-old woman. She has history of GERD, prostatitis, depression and anxiety and BMI greater than 40. She presents because of white bumps on her face which she believes is due to reaction to the antibiotic she was prescribed. Patient denies itching. Patient denies swelling of her lips, tongue or throat. She denies trouble swallowing. She has had no change in her voice. She has no cardiac or respiratory symptoms. She denies wheezing. Low back pain noted on the right side. There is no radicular pain. She reports dragging her foot today. She also has numbness in her foot and is seen by Dr. Gustafson. She denies history of diabetes, peripheral arterial disease or neuropathy. There is no history of trauma. She has not noted a rash. She does not have symptoms of claudication. Prior similar symptoms: Yes (Yes to back pain note to facial rash) Recent Illness/Hospitalizat ion: Yes (Seen in ED for parotitis.) [facility] Medical History Arthritis Pancreatitis GERD (gastroesophageal reflux disease) Home Medications ???Medication ???Instructions ???Recorded ???Last Taken ???Type omeprazole 40 mg capsule,delayed 40 mg PO DAILY 05/22/19 Unknown Hi story release celecoxib 200 mg capsule 200 mg PO BID 10/27/24 Unknown His tory duloxetine 60 mg capsule,delayed 60 mg PO DAILY 10/27/24 Unknown Hi story release furosemide 20 mg tablet 20 mg PO DAILY PRN swelling Unknown History prednisone 20 mg tablet 40 mg (2 x 20 mg) PO DAILY 6 days 10/27/24 Unknown Rx #12 tabs doxycycline monohydrate 100 mg 100 mg PO BID #14 CAPSULES 5 Unknown Rx capsule Allergy/AdvReac Type Severity Reaction Status Date / Time amoxicillin Allergy Unknown Verified 11/20/24 10:24 azithromycin Allergy Upset Verified 11/20/24 10:24 Stomach cephalexin (From Keflex) Allergy Hives Verified 11/20/24 10:24 cephalexin monohydrate (From Allergy Swelling Verified 11/20/24 10:24 Keflex) erythromycin base Allergy Unknown Verified 11/20/24 10:24 ibuprofen AdvReac Upset Verified 11/20/24 10:24 Stomach tramadol AdvReac Nausea/Vom/ Verified 11/20/24 10:24 Diarrhea Surgical History History of 3 sections History of vocal cord polypectomy Hx of cholecystectomy Social History housing: house Smoking Status: Current every day smoker tobacco type: e-cigarettes ROS ROS ED Constitutional Constitutional ED: Denies chills, fever(s), subjective or sweats Eyes Eyes: Denies blurry vision or change in vision ENT ENT ED: Denies ear pain, rhinorrhea or sore throat Cardiovascular Cardiovascular: Denies chest pain or palpitations Respiratory/Chest Respiratory/Chest: Denies cough or dyspnea Gastrointestinal Gastrointestinal: Denies nausea Musculoskeletal Musculoskeletal: Reports back pain Integumentary Reports rash Neurologic Neurologic: Denies headache(s) or paresthesias Allergic/Immunologic Allergic/Immunologic ED: Denies mouth swelling, tongue swelling or urticaria EXAM Physical Exam Const Vital Signs: 11/20/24 10:21 Temperature 99.4 F H Temperature Source Oral Pulse Rate 72 Respiratory Rate 18 Blood Pressure 114/87 H Blood Pressure Mean 96 Pulse Ox 98 Oxygen Delivery Method Room Air Positive well nourished and well developed General Appearance ED: well developed and NAD HEENT Reports moist mucous membranes HEENT Narrative: Patient has multiple small whiteheads on her face. She states she has not been sweating profusely recently. She was seen for parotid gland swelling on the right. This has improved. She no longer complains of pain. There is no evidence o (more content not included)... Normal [facility] Emergency Department Summary on 11-15-2024 Emergency Department Summary [facility] Medical Records Department [address] [place] [address] Emergency Department Summary 11/15/24 MR#: [id number] Acct: [id number] Name: MARCY POSEY Rep #: [id number] : 1970 54 From: Ace Fox MD PCP: YONATAN Odom Status:REG ER Location: ED HPI History of Present Illness Chief Complaint: Other, Pain/Inj Detail of Chief Complaint: Patient has numerous complaints. Main complaint is bump right side of her Informant: patient Onset/Context/Timing Onset: Yesterday Context: Sudden Onset Timing: Continuous Quality: Pain and swelling anterior and inferior right ear Location: Right parotid gland and Stensen's duct Current Severity: Mild Maximum Severity: Moderate Worsened by: Nothing Relieved by: Nothing Associated Symptoms Associated Symptoms: Nothing/none Narrative Narrative: Patient is a 54-year-old woman with history of GERD, depression anxiety who presents because of swelling right side of her face and bump on the inside of her mouth. She had other complaints listed in triage but that is not the reason she presented. She states she is seen other practitioners for her other complaints. She denies fever, chills night sweats. She denies inability or difficulty opening closing her mouth. She denies change in voice. She denies difficulty swallowing. She has seen Dr. Wagner Martinez in the past. She has multiple antibiotic allergies. Based on her antibiotic allergies we will treat with doxycycline. Patient also was concerned because of bumps on her face. Prior similar symptoms: No Recent Illness/Hospitalizat ion: No PFSH PFSH Medical History Arthritis Pancreatitis GERD (gastroesophageal reflux disease) Home Medications ???Medication ???Instructions ???Recorded ???Last Taken ???Type omeprazole 40 mg capsule,delayed 40 mg PO DAILY 05/22/19 Unknown Hi story release celecoxib 200 mg capsule 200 mg PO BID 10/27/24 Unknown His tory duloxetine 60 mg capsule,delayed 60 mg PO DAILY 10/27/24 Unknown Hi story release furosemide 20 mg tablet 20 mg PO DAILY PRN swelling Unknown History prednisone 20 mg tablet 40 mg (2 x 20 mg) PO DAILY 6 days 10/27/24 Unknown Rx #12 tabs doxycycline monohydrate 100 mg 100 mg PO BID #14 CAPSULES 5 Unknown Rx capsule Allergy/AdvReac Type Severity Reaction Status Date / Time amoxicillin Allergy Unknown Verified 11/15/24 07:13 azithromycin Allergy Upset Verified 11/15/24 07:13 Stomach cephalexin (From Keflex) Allergy Hives Verified 11/15/24 07:13 cephalexin monohydrate (From Allergy Swelling Verified 11/15/24 07:13 Keflex) erythromycin base Allergy Unknown Verified 11/15/24 07:13 ibuprofen AdvReac Upset Verified 11/15/24 07:13 Stomach tramadol AdvReac Nausea/Vom/ Verified 11/15/24 07:13 Diarrhea Surgical History History of 3 sections History of vocal cord polypectomy Hx of cholecystectomy Social History housing: house Smoking Status: Current every day smoker tobacco type: cigarettes and e-cigarettes ROS ROS ED Constitutional Constitutional ED: Denies chills, fever(s), subjective, sweats or weight loss Eyes Eyes: Denies blurry vision, change in vision or diplopia ENT ENT ED: Reports other Details: Detailed HPI narrative ; Denies ear pain, rhinorrhea or sore throat Cardiovascular Cardiovascular: Denies palpitations Respiratory/Chest Respiratory/Chest: Denies cough or dyspnea Gastrointestinal Gastrointestinal: Denies nausea or vomiting Integumentary Reports rash and other Details: Patient has folliculitis/heat rash on her face and neck. Neurologic Neurologic: Denies headache(s) or paresthesias Hematologic/Lymphati c Hematologic/Lymphati c: Reports systems reviewed and no addt'l complaints, except as documented EXAM Physical Exam Const Vital Signs: 11/15/24 07:08 Temperature 97.7 F L Temperature Source Temporal Pulse Rate 79 Respiratory Rate 16 Blood Pressure 134/97 H Blood Pressure Mean 109 Pulse Ox 97 Oxygen Delivery Method Room Air Positive well nourished and well developed General Appearance ED: well developed and NAD; Negative for cyanotic or diaphoretic HEENT Reports moist mucous membranes HEENT Narrative: Head is atraumatic and normocephalic. Ears are normal. TMs are normal. There is no preauricular lymphadenopathy. Patient has swelling of her parotid gland. Milking of the parotid gland elicits discharge from Stensen's duct. Posterior pharynx without erythema or exudate. Uvula midline. No deviation tongue with protrusion. There is no dysphonia. There is no drooling. Eyes PERRL (more content not included)... Normal [facility] Bacteria Wnd Culton 11-12-19 25 Bacteria identified Cx Nom (Wound) ORGANISM ID: 2 Rare skin nora ORGANISM ID: 3 Rare Proteus mirabilis GRAM STAIN: No organisms seen No Polymorphonuclear Leukocytes ORGANISM ID: 3 (PROTEUS MIRABILIS) ANTIBIOTIC INTERPRETATION WONG STATUS REFERENCE RANGE Ampicillin R >=32 F Susceptible <=8 , Intermediate >8 , Resistant >16 Ceftriaxone S <=1 F Susceptible <=1 , Intermediate >1 , Resistant >=4 Cefepime S <=1 F Susceptible <=2 , Susceptible-Dose Dependent >2 , Resistant >=16 Ertapenem S <=0.5 F Susceptible <=0.5 , Intermediate >.5 , Resistant >1 Meropenem S <=0.25 F Susceptible <=1 , Intermediate >1 , Resistant >2 Ampicillin/Sulbact S 8 F Susceptible <=8 , Intermediate >8 , Resistant >16 Gentamicin S <=1 F Susceptible <=2 , Intermediate >2 , Resistant >=8 Tobramycin S <=1 F Susceptible <4 , Intermediate >=4 , Resistant >=8 Trimeth sulfameth S <=20 F Susceptible <=40 , Resistant >40 Ciprofloxacin R >=4 F Susceptible <0.5 , Intermediate >=.5 , Resistant >=1 ORGANISM ID: 3 (PROTEUS MIRABILIS) ANTIBIOTIC INTERPRETATION WONG STATUS REFERENCE RANGE Piperacillin/Tazobac S <=2 F Abnormal [facility] Comment on above: Performed By: #### 6 462-6 #### [facility] CLIA [id number] [address] [place] [address] OF [facility] 11-11-2024 [facility] Office Visit (WORONEY) MARCY POSEY ([id number]) 1970 F Date Time Provider Department 11/11/24 12:45 PM WAGNER MAN During your visit today, we recorded the following information about you: Temperature Pulse Respiration Blood pressure 98.5 degrees 64/minute 18/minute 132/72 Weight 116 kg Wagner Man MD 11/11/2024 1:43 PM Addendum [facility] Subjective Marcy Posey is a 54 year old female. Patient presents with: right side facial swelling: X 1 day and sore in nose x 1 week Patient presents with concern for swelling along the right jaw she noticed today. Is not tender but does feel tight at times. She does have a pimple near the area which she tried to pick. Denies any fever, toothache, sore throat, earache, or cough. She has had a crusty lesion in the left nostril. She notes it initially began as a pimple. She was able to express some clear fluid earlier in the week. She has never had cold sores or prior lesions in the area of the left nostril. Denies any history of MRSA. She has been treating the lesion with Bactroban. Review of Systems Objective BP 132/72 Pulse 64 Temp 36.9 ?C (98.5 ?F) (Tympanic) Resp 18 Wt 116 kg (255 lb 11.7 oz) LMP 02/18/2016 SpO2 98% BMI 38.32 kg/m? Physical Exam Constitutional: General: She is not in acute distress. Appearance: She is not ill-appearing. HENT: Head: Comments: Mild fullness without tenderness at the right angle of the jaw. There is a slightly macerated papule at the posterior inferior aspect of the swelling. Right Ear: Tympanic membrane and ear canal normal. Left Ear: Tympanic membrane and ear canal normal. Nose: No congestion or rhinorrhea. Comments: 5 mm slightly raised crusted lesion at the base of the left nostril and septum. Mouth/Throat: Mouth: Mucous membranes are moist. Pharynx: No posterior oropharyngeal erythema. Comments: No tenderness with palpation of the teeth. Lymphadenopathy: Cervical: No cervical adenopathy. Neurological: Mental Status: She is alert. {ASSESSMENT/PLAN: 1. Sore in nose - ICD9: 478.19, ICD10: J34.89 (primary diagnosis) Assess for HSV versus staph in the left nostril. - BACTERIAL CULTURE AND GRAM STAIN, ABSCESS AND WOUND (AEROBIC CULTURE) - HERPES SIMPLEX VIRUS (HSV-1 AND HSV-2) AND VARICELLA ZOSTER VIRUS (VZV), NAAT, LESION SWAB The lesion is in the healing phase and no additional antibiotic or antiviral medication is needed based on culture; may be added if the lesion worsens. 2. Swelling of right side of face - ICD9: 784.2, ICD10: R22.0 Local inflammation secondary to superficial pustule behind the jaw. Wagner Man MD Differential Diagnoses - Staph pustules is more likely for the following reason(s): suggested by HANDP - HSV is more likely for the following reason(s): clear fluid drainage - Parotitis is less likely for the following reason(s): Exam not suggestive - Abscess is less likely for the following reason(s): Exam not suggestive Additional Tests or Interventions The following medication(s) were considered but not ordered: Anti-staph antibiotic such as Bactrim or doxycycline-lesions appear to be in the healing stage. Beyond the therapeutic window for HSV antiviral. Procedures Allergies As of Date: 11/11/2024 Noted Allergy Reaction AMOXICILLIN 06/20/2015 8 - GI Upset ERYTHROMYCIN 05/15/2010 4 - Hives IBUPROFEN 06/17/2017 8 - GI Upset KEFLEX (CEPHALEXIN) 05/15/2010 4 - Hives ULTRAM (TRAMADOL HCL) 06/20/2015 11 - Vomiting Date Reviewed: 03/02/2024 Reviewed by: Randi Sabillon MA - Fully Assessed Reason for Visit: right side facial swelling [Other] Cmt: X 1 day and sore in nose x 1 week Primary Visit Diagnosis:Sore in nose [J34.89] Other Visit Diagnosis:Swelling of right side of face [R22.0] Order(s):BACTERIAL CULTURE AND GRAM STAIN, ABSCESS AND WOUND (AEROBIC CULTURE) [SQWCUL] Order #: [id number]. #:[id number] HERPES SIMPLEX VIRUS (HSV-1 AND HSV-2) AND VARICELLA ZOSTER VIRUS (VZV), NAAT, LESION SWAB [SQHSVVZV] Order #: [id number] FUTURE HERPES SIMPLEX VIRUS (HSV-1 AND HSV-2) AND VARICELLA ZOSTER VIRUS (VZV), NAAT, LESION SWAB [SQHSVVZV] Order #: [id number]. #:[id number] Prescriptions as of 11/11/2024 - DULoxetine (CYMBALTA) 60 mg capsule 60 mg. - celecoxib (CELEBREX) 200 mg capsule Take 1 capsule by mouth every 12 hours. - orphenadrine ER (NORFLEX) 100 mg tablet Take 1 tablet by mouth twice daily. - indomethacin ER 75 mg CR capsule TAKE 1 CAPSULE BY MOUTH TWICE DAILY WITH MEALS - albuterol HFA (PROAIR HFA) 90 mcg/actuation inhaler Inhale 2 Puffs as instructed every 4 hours as needed for Wheezing/Shortness of Breath. - fluticasone (FLONASE) 50 mcg/actuation nasal spray Use 1 Converse in each nostril once daily. - COMPOUNDED PRESCRIPTION Knee high prescription hose 15-20 mmHg f (more content not included)... Normal [facility] HSV+VZV DNA ROSA+probe Ql (Un sp spec)on 11-11-2024 HSV 1 DNA ROSA+probe Ql (Unsp spec) Not detected Normal Not Detected [facility] Comment on above: Order Comment: Speci men Type: SWAB Ordering Facility: [facility] Address: [address] [place] [address] Performed By: #### 3 3027-4 #### [facility] CLIA [id number] [address] [place] [address] [place] HSV 2 DNA ROSA+probe Ql (Unsp spec) Not detected Normal Not Detected [facility] Comment on above: Order Comment: Speci men Type: SWAB Ordering Facility: [facility] Address: [address] [place] [address] Performed By: #### 3 7-4 #### [facility] CLIA [id number] [address] [place] [address] [place] VZV DNA ROSA+probe Ql (Unsp spec) Not detected Normal Not Detected [facility] Comment on above: Order Comment: Speci men Type: SWAB Ordering Facility: [facility] Address: [address] [place] [address] Performed By: #### 3 3027-4 #### [facility] CLIA [id number] [address] [place] [address] [place] Elbow min 3 Viewson 10-28-19 [address] [facility] Imaging Services [address] [place] [address] Elbow min 3 Views MR#: [id number] Acct: [id number] Name: MARCY POSEY Rep #: [id number] : 1970 F 54 From: Sunshine Lobo PCP: Care Physician,No Primary Status: REG ER Study: Elbow min 3 Views Date of Exam: 10/27/24 Exam# [id number] Ordering Dr: Sd Desouza MD PROCEDURE: ELBOW MIN 3 VIEWS 10/27/2024 REASON FOR EXAM: PAIN TECHNIQUE: ELBOW MIN 3 VIEWS COMPARISON: None RAD/Elbow min 3 Views IMPRESSION: No acute fracture or dislocations. [id number] degenerative changes. No large joint effusion. Mild soft tissue edema. No radiographic foreign body. Reading Location: [facility] CC: Dr. Sd Desouza MD; No Primary Care Physician Intermission Coordinator: Signed Normal [facility] Emergency Department Summary on 10-27-2024 Emergency Department Summary [facility] Medical Records Department [address] [place] [id number] Emergency Department Summary 10/27/24 MR#: [id number] Acct: [id number] Name: MARCY POSEY Rep #: [id number] : 1970 54 From: Sd Desouza MD PCP: Care Physician,No Primary Status:REG ER Location: ED HPI History of Present Illness Chief Complaint: Upper Extremity Injury Informant: patient Narrative Narrative: 54-year-old female presents because of sciatica down my right leg for the past month, feels similar to sciatica she was diagnosed with on the left in the past but that went away, and nontraumatic left elbow pain for the past 2-3 weeks. She states the pain is focused in her elbow but it goes all the way up to her shoulder and all the way down to her wrist. It hurts more to move and is better to remain still. Has not tried any treatment. She has some numbness on the bottom of her right foot at times no bowel or bladder dysfunction or weakness in the leg. 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 She denies any injury to her back. She denies any systemic symptoms such as fevers or chills she is not an IV drug user, she denies any recent dental work or dental abscess. [facility] Medical History Arthritis Pancreatitis GERD (gastroesophageal reflux disease) Home Medications ???Medication ???Instructions ???Recorded ???Last Taken ???Type omeprazole 40 mg capsule,delayed 40 mg PO DAILY 05/22/19 Unknown Hi story release celecoxib 200 mg capsule 200 mg PO BID 10/27/24 Unknown His tory duloxetine 60 mg capsule,delayed 60 mg PO DAILY 10/27/24 Unknown Hi story release furosemide 20 mg tablet 20 mg PO DAILY PRN swelling Unknown History prednisone 20 mg tablet 40 mg (2 x 20 mg) PO DAILY 6 days 10/27/24 Unknown Rx #12 tabs Allergy/AdvReac Type Severity Reaction Status Date / Time amoxicillin Allergy Unknown Verified 10/27/24 09:44 azithromycin Allergy Upset Verified 10/27/24 09:44 Stomach cephalexin (From Keflex) Allergy Hives Verified 10/27/24 09:44 cephalexin monohydrate (From Allergy Swelling Verified 10/27/24 09:44 Keflex) erythromycin base Allergy Unknown Verified 10/27/24 09:44 ibuprofen AdvReac Upset Verified 10/27/24 09:44 Stomach tramadol AdvReac Nausea/Vom/ Verified 10/27/24 09:44 Diarrhea Surgical History (Updated 04/10/24 @ 19:[address] Ignacio Pearson, DO) History of 3 sections History of vocal cord polypectomy Hx of cholecystectomy Social History housing: house Smoking Status: Current every day smoker tobacco type: cigarettes and e-cigarettes ROS ROS ED Constitutional Constitutional ED: Denies chills or fever(s) Eyes Eyes: Denies blurry vision or diplopia ENT ENT ED: Denies dental pain, ear pain or sore throat Cardiovascular Cardiovascular: Denies chest pain, palpitations or racing heartbeat Respiratory/Chest Respiratory/Chest: Denies dyspnea Gastrointestinal Gastrointestinal: Denies abdominal pain, constipation, fecal incontinence, nausea or vomiting Genitourinary Genitourinary ED: Reports other Details: no urinary retention ; Denies abdominal discomfort or urinary incontinence Musculoskeletal Musculoskeletal: Reports back pain and extremity pain; Denies neck pain Integumentary Denies Abrasions, rash or wounds Neurologic Neurologic: Reports paresthesias RLE (Bottom of foot at times); Denies weakness EXAM Physical Exam Const Vital Signs: 10/27/24 09:43 Temperature 98 F Temperature Source Temporal Pulse Rate 87 Respiratory Rate 14 Blood Pressure 159/94 H Blood Pressure Mean 115 Pulse Ox 98 Oxygen Delivery Method Room Air Positive well nourished and well developed General Appearance ED: well developed and NAD HEENT Negative for trauma or tenderness Eyes PERRL and EOMs intact bilaterally Neck full ROM and supple Chest Wall inspection of chest normal and palpation of chest normal Resp normal respiratory effort and clear to auscultation bilaterally Cardio regular rate and regular rhythm Cardio Narrative: Soft systolic murmur GI normal to inspection, nondistended, normoactive bowel sounds, soft to palpation and non-tender Back/Spine no CVA tenderness, normal ROM and normal to inspection Back/Spine Narrative: Ipsilateral right straight leg raise causes buttock and back pain but does not reproduce radicular symptoms in the right lower extremity. Negative contralateral straight leg raise and cross straight leg raise. Lumbar Spine / Lower Back: ROM limited and straight leg raise negative bilaterally; Negative for lumbar spinal tenderness or paraspin (more content not included)... Normal [facility] .GFRon 07-31-2024 Estimated Glomerular Filtration Rate 80 ml/min/1.73sqm Normal [facility] Comment on above: Result Comment: Stages of Chronic Kidney Disease (CKD) Stage Description eGFR(ml/min/1.73 sq.m.) CKD 1 Normal kidney function or >=90 normal kindney function with possible kidney damage (ex. Proteinuria) CKD 2 Kidney damage with mild loss 60-89 of kidney function CKD 3a Mild to moderate loss of kidney 45-59 function CKD 3b Moderate to severe loss of 30-44 of kindey function CKD 4 Severe loss of kidney function 15-29 CKD 5 Kidney failure <15 Note: (go live 2024) the eGFR calculation was updated to the 2020 CKD-EPI creatinine equation without a race factor to calculate the eGFR results. Performed By: #### C , GFR #### [address] [address] CMPon 07-31-2024 Albumin Level 3.9 G/dL Normal 3.5-5.0 [facility] Comment on above: Performed By: #### C MP, GFR #### [place] [id number] Albumin/Globulin [Mass ratio] 1.1 {ratio} Normal 1.1-2.5 [facility] Comment on above: Performed By: #### C MP, GFR #### [place] [id number] ALP [Catalytic activity/Vol] 124 U/L Normal 40-135 [facility] Comment on above: Performed By: #### C MP, GFR #### [place] [address] ALT [Catalytic activity/Vol] 33 U/L Normal 14-59 [facility] Comment on above: Performed By: #### C MP, GFR #### [place] [id number] AST [Catalytic activity/Vol] 30 U/L Normal 10-40 [facility] Comment on above: Performed By: #### C MP, GFR #### [place] [id number] Bili Total 0.7 mg/dL Normal 0.2-1.0 [facility] Comment on above: Result Comment: Use of this assay is not recommended for patients undergoing treatment with eltrombopag due to the potential for falsely elevated results. Performed By: #### C MP, GFR #### [address] [address] BUN/Creatinine Ratio 14 ratio Normal 7-27 [facility] Comment on above: Performed By: #### C MP, GFR #### [address] [address] Calcium [Mass/Vol] 9.4 mg/dL Normal 8.4-10.[address] [facility] Comment on above: Performed By: #### C MP, GFR #### [place] [id number] Chloride [Moles/Vol] 101 mmol/L Normal 98-107 [facility] Comment on above: Performed By: #### C MP, GFR #### [address] [address] CO2 [Moles/Vol] 35 mmol/L High 22-29 [facility] Comment on above: Performed By: #### C MP, GFR #### [address] [address] Creatinine [Mass/Vol] 0.87 mg/dL Normal 0.55-1.02 [facility] Comment on above: Result Comment: Test ing performed on Siemens Dimension EXL analyzer using a modified kinetic Collin technique. Performed By: #### C MP, GFR #### [address] [address] Electrolyte Balance 6.0 mEq/L Normal 4.0-15.[address] [facility] Comment on above: Performed By: #### C MP, GFR #### [address] [address] Globulin 3.4 G/dL Normal 1.5-3.8 [facility] Comment on above: Performed By: #### C MP, GFR #### [address] [address] Glucose [Mass/Vol] 113 mg/dL High 70-[address] [facility] Comment on above: Performed By: #### C MP, GFR #### [address] [address] Potassium [Moles/Vol] 4.1 mmol/L Normal 3.5-5.1 [facility] Comment on above: Performed By: #### C MP, GFR #### [address] [address] Sodium [Moles/Vol] 142 mmol/L Normal 136-[address] [facility] Comment on above: Performed By: #### C MP, GFR #### [address] [address] Total Protein 7.3 G/dL Normal 6.4-8.2 [facility] Comment on above: Performed By: #### C MP, GFR #### [address] [address] Urea nitrogen [Mass/Vol] 12 mg/dL Normal 7-18 [facility] Comment on above: Performed By: #### C MP, GFR #### [address] [address] RFon 04-24-2024 Rheumatoid Factor <6.0 Normal <=5.9 [facility] Comment on above: Result Comment: RF I gM Antibody by Enzyme Immunoassay: Negative < or = 6 Positive > 6 A positive result indicates the presence of RF antibodies and suggests the possibility of rheumatoid arthritis. A negative result indicates no RF IgM antibody or levels below the negative cut-off of the assay. Results of this assay should be used in conjunction with clinical findings and other serological tests. These results were obtained with the Fab QUANTA Lite RF IgM MATTHEW. RF IgM values obtained with different manufacturers' assay methods may not be used interchangeably. The magnitude of the reported IgM levels cannot be correlated to an endpoint titer. Performed By: #### P BNP, CMP, ANEU, TSH, ADIFF, ESR, GFR, CBC, CRP ####[address] [address]#### RF ####[address] [address] .Auto Diffon 04-20-2024 Basophil, Absolute 0.1 10 3/mcL Normal 0.0-0.2 [facility] Comment on above: Performed By: #### P BNP, CMP, ANEU, TSH, ADIFF, ESR, GFR, CBC, CRP #### [address] [address] #### RF #### [address] [address] Basophils/100 WBC (Bld) 0.8 % Normal 0.0-2.5 [facility] Comment on above: Performed By: #### P BNP, CMP, ANEU, TSH, ADIFF, ESR, GFR, CBC, CRP #### [place] [address] #### RF #### [address] [address] Eosinophil, Absolute 0.2 10 3/mcL Normal 0.0-0.7 [facility] Comment on above: Performed By: #### P BNP, CMP, ANEU, TSH, ADIFF, ESR, GFR, CBC, CRP #### [place] [address] #### RF #### [address] [address] Eosinophils/100 WBC (Bld) 1.8 % Normal 0.0-7.0 [facility] Comment on above: Performed By: #### P BNP, CMP, ANEU, TSH, ADIFF, ESR, GFR, CBC, CRP #### [place] [address] #### RF #### [address] [address] Lymphocyte, Absolute 3.6 10 3/mcL Normal 0.9-4.3 [facility] Comment on above: Performed By: #### P BNP, CMP, ANEU, TSH, ADIFF, ESR, GFR, CBC, CRP #### [place] [address] #### RF #### [address] [address] Lymphocytes/100 WBC (Bld) 38.5 % Normal 20.0-40.0 [facility] Comment on above: Performed By: #### P BNP, CMP, ANEU, TSH, ADIFF, ESR, GFR, CBC, CRP #### [place] [address] #### RF #### [address] [address] Monocyte, Absolute 0.5 10 3/mcL Normal 0.1-1.4 [facility] Comment on above: Performed By: #### P BNP, CMP, ANEU, TSH, ADIFF, ESR, GFR, CBC, CRP #### [address] [address] #### RF #### [address] [address] Monocytes/100 WBC (Bld) 5.3 % Normal 2.0-13.0 [facility] Comment on above: Performed By: #### P BNP, CMP, ANEU, TSH, ADIFF, ESR, GFR, CBC, CRP #### [address] [address] #### RF #### [address] [address] Neutrophils/100 WBC (Bld) 53.6 % Normal 50.0-75.0 [facility] Comment on above: Performed By: #### P BNP, CMP, ANEU, TSH, ADIFF, ESR, GFR, CBC, CRP #### [address] [address] #### RF #### [address] [address] .GFRon 04-20-2024 GFR 100 ml/min/1.73sqm Normal [facility] Comment on above: Result Comment: GFR Population mean for , Non- Americans Ages 20-29 = 116 mL/min/1.73 sq.m. Ages 30-39 = 107 mL/min/1.73 sq.m. Ages 40-49 = 99 mL/min/1.73 sq.m. Ages 50-59 = 93 mL/min/1.73 sq.m. Ages 60-69 = 85 mL/min/1.73 sq.m. Ages 70+ = 75 mL/min/1.73 sq.m. Chronic Kidney Disease: Less than 60 mL/min/1.73 square meters End Stage Renal Disease: Less than 15 mL/min/1.73 square meters Performed By: #### P BNP, CMP, ANEU, TSH, ADIFF, ESR, GFR, CBC, CRP ####[address] [address]#### RF ####[address] [address] GFR Non- 82 ml/min/1.73sqm Normal [facility] Comment on above: Result Comment: GFR Population mean for , Non- Americans Ages 20-29 = 116 mL/min/1.73 sq.m. Ages 30-39 = 107 mL/min/1.73 sq.m. Ages 40-49 = 99 mL/min/1.73 sq.m. Ages 50-59 = 93 mL/min/1.73 sq.m. Ages 60-69 = 85 mL/min/1.73 sq.m. Ages 70+ = 75 mL/min/1.73 sq.m. Chronic Kidney Disease: Less than 60 mL/min/1.73 square meters End Stage Renal Disease: Less than 15 mL/min/1.73 square meters Performed By: #### P BNP, CMP, ANEU, TSH, ADIFF, ESR, GFR, CBC, CRP ####[address] [address]#### RF ####[address] [address] .NEUABSon 04-20-2024 Neutrophil, Absolute 5.0 10 3/mcL Normal 2.3-8.1 [facility] Comment on above: Performed By: #### P BNP, CMP, ANEU, TSH, ADIFF, ESR, GFR, CBC, CRP #### [address] [address] #### RF #### [address] [address] CBCon 04-20-2024 Erythrocyte distribution width (RBC) [Ratio] 13.8 % Normal 11.5-15.5 [facility] Comment on above: Performed By: #### P BNP, CMP, ANEU, TSH, ADIFF, ESR, GFR, CBC, CRP #### [address] [address] #### RF #### [address] [address] Hematocrit (Bld) [Volume fraction] 37.9 % Normal 34.0-46.0 [facility] Comment on above: Performed By: #### P BNP, CMP, ANEU, TSH, ADIFF, ESR, GFR, CBC, CRP #### [place] [address] #### RF #### [place] [address] Hgb 12.9 G/dL Normal 12.0-16.0 [facility] Comment on above: Performed By: #### P BNP, CMP, ANEU, TSH, ADIFF, ESR, GFR, CBC, CRP #### [place] [address] #### RF #### [place] [address] MCH (RBC) [Entitic mass] 31.3 pg Normal 27.0-33.0 [facility] Comment on above: Performed By: #### P BNP, CMP, ANEU, TSH, ADIFF, ESR, GFR, CBC, CRP #### [place] [address] #### RF #### [place] [address] MCHC 34.0 G/dL Normal 32.0-36.0 [facility] Comment on above: Performed By: #### P BNP, CMP, ANEU, TSH, ADIFF, ESR, GFR, CBC, CRP #### [place] [address] #### RF #### [place] [address] MCV (RBC) [Entitic vol] 92.3 fL Normal 80.0-99.0 [facility] Comment on above: Performed By: #### P BNP, CMP, ANEU, TSH, ADIFF, ESR, GFR, CBC, CRP #### [place] [address] #### RF #### [place] [address] Platelet 184 10 3/mcL Normal 150-450 [facility] Comment on above: Performed By: #### P BNP, CMP, ANEU, TSH, ADIFF, ESR, GFR, CBC, CRP #### [place] [address] #### RF #### [place] [address] Platelet mean volume (Bld) [Entitic vol] 10.2 fL Normal 6.6-10.5 [facility] Comment on above: Performed By: #### P BNP, CMP, ANEU, TSH, ADIFF, ESR, GFR, CBC, CRP #### [place] [address] #### RF #### [place] [address] RBC 4.10 10 6/mcL Normal 4.10-5.30 [facility] Comment on above: Performed By: #### P BNP, CMP, ANEU, TSH, ADIFF, ESR, GFR, CBC, CRP #### [place] [address] #### RF #### [place] [address] WBC 9.3 10 3/mcL Normal 4.5-10.8 [facility] Comment on above: Performed By: #### P BNP, CMP, ANEU, TSH, ADIFF, ESR, GFR, CBC, CRP #### [place] [address] #### RF #### [place] [address] CMPon 04-20-2024 Albumin Level 3.9 G/dL Normal 3.5-5.0 [facility] Comment on above: Performed By: #### P BNP, CMP, ANEU, TSH, ADIFF, ESR, GFR, CBC, CRP ####[place] [address]#### RF ####[place] [address] Albumin/Globulin [Mass ratio] 1.4 {ratio} Normal 1.1-2.5 [facility] Comment on above: Performed By: #### P BNP, CMP, ANEU, TSH, ADIFF, ESR, GFR, CBC, CRP ####[place] [address]#### RF ####[place] [address] ALP [Catalytic activity/Vol] 119 U/L Normal 40-135 [facility] Comment on above: Performed By: #### P BNP, CMP, ANEU, TSH, ADIFF, ESR, GFR, CBC, CRP ####[place] [address]#### RF ####[place] [address] ALT [Catalytic activity/Vol] 43 U/L Normal 14-59 [facility] Comment on above: Performed By: #### P BNP, CMP, ANEU, TSH, ADIFF, ESR, GFR, CBC, CRP ####[place] [address]#### RF ####[place] [address] AST [Catalytic activity/Vol] 24 U/L Normal 10-40 [facility] Comment on above: Performed By: #### P BNP, CMP, ANEU, TSH, ADIFF, ESR, GFR, CBC, CRP ####[place] [address]#### RF ####[place] [address] Bili Total 0.5 mg/dL Normal 0.2-1.0 [facility] Comment on above: Result Comment: Use of this assay is not recommended for patients undergoing treatment with eltrombopag due to the potential for falsely elevated results. Performed By: #### P BNP, CMP, ANEU, TSH, ADIFF, ESR, GFR, CBC, CRP ####[place] [address]#### RF ####[place] [address] BUN/Creatinine Ratio 18 ratio Normal 7-27 [facility] Comment on above: Performed By: #### P BNP, CMP, ANEU, TSH, ADIFF, ESR, GFR, CBC, CRP ####[place] [address]#### RF ####[place] [address] Calcium [Mass/Vol] 9.6 mg/dL Normal 8.4-10.[address] [facility] Comment on above: Performed By: #### P BNP, CMP, ANEU, TSH, ADIFF, ESR, GFR, CBC, CRP ####[place] [address]#### RF ####[place] [address] Chloride [Moles/Vol] 104 mmol/L Normal 98-107 [facility] Comment on above: Performed By: #### P BNP, CMP, ANEU, TSH, ADIFF, ESR, GFR, CBC, CRP ####[place] [address]#### RF ####[place] [address] CO2 [Moles/Vol] 30 mmol/L High 22-29 [facility] Comment on above: Performed By: #### P BNP, CMP, ANEU, TSH, ADIFF, ESR, GFR, CBC, CRP ####[place] [address]#### RF ####[place] [address] Creatinine [Mass/Vol] 0.74 mg/dL Normal 0.55-1.02 [facility] Comment on above: Result Comment: Test ing performed on Siemens Dimension EXL analyzer using a modified kinetic Collin technique. Performed By: #### P BNP, CMP, ANEU, TSH, ADIFF, ESR, GFR, CBC, CRP ####[place] [address]#### RF ####[place] [address] Electrolyte Balance 9.0 mEq/L Normal 4.0-15.[address] [facility] Comment on above: Performed By: #### P BNP, CMP, ANEU, TSH, ADIFF, ESR, GFR, CBC, CRP ####[place] [address]#### RF ####[address] [address] Globulin 2.7 G/dL Normal [facility] Comment on above: Performed By: #### P BNP, CMP, ANEU, TSH, ADIFF, ESR, GFR, CBC, CRP ####[place] [address]#### RF ####[place] [address] Glucose [Mass/Vol] 99 mg/dL Normal 70-[address] [facility] Comment on above: Performed By: #### P BNP, CMP, ANEU, TSH, ADIFF, ESR, GFR, CBC, CRP ####[place] [address]#### RF ####[place] [address] Potassium [Moles/Vol] 4.6 mmol/L Normal 3.5-5.1 [facility] Comment on above: Performed By: #### P BNP, CMP, ANEU, TSH, ADIFF, ESR, GFR, CBC, CRP ####[place] [address]#### RF ####[place] [address] Sodium [Moles/Vol] 143 mmol/L Normal 136-[address] [facility] Comment on above: Performed By: #### P BNP, CMP, ANEU, TSH, ADIFF, ESR, GFR, CBC, CRP ####[place] [address]#### RF ####[place] [address] Total Protein 6.6 G/dL Normal 6.4-8.2 [facility] Comment on above: Performed By: #### P BNP, CMP, ANEU, TSH, ADIFF, ESR, GFR, CBC, CRP ####[place] [address]#### RF ####[place] [address] Urea nitrogen [Mass/Vol] 13 mg/dL Normal 7-18 [facility] Comment on above: Performed By: #### P BNP, CMP, ANEU, TSH, ADIFF, ESR, GFR, CBC, CRP ####[place] [address]#### RF ####[place] [address] CRPon 04-20-2024 C-Reactive Protein 0.9 mg/dL High 0.0-0.[address] [facility] Comment on above: Performed By: #### P BNP, CMP, ANEU, TSH, ADIFF, ESR, GFR, CBC, CRP #### [place] [address] #### RF #### [facility] [address] [place] [address] ESRon 04-20-2024 Erythrocyte Sed Rate 23 mm/hr Normal 0-30 [facility] Comment on above: Performed By: #### P BNP, CMP, ANEU, TSH, ADIFF, ESR, GFR, CBC, CRP #### [place] [address] #### RF #### [place] [address] LABORATORYOrdered By: SYSTEM SYSTEM on 04-20-2024 Albumin BCP dye [Mass/Vol] 3.9 G/dL Normal 3.5 - 5.0 G/dL AO ADM SS Albumin/Globulin [Mass ratio] 1.4 {ratio} Normal 1.1 - 2.5 ratio AO ADM SS ALP [Catalytic activity/Vol] 119 U/L Normal 40 - 135 U/L AO ADM SS ALT With P-5'-P [Catalytic activity/Vol] 43 U/L Normal 14 - 59 U/L AO ADM SS AST With P-5'-P [Catalytic activity/Vol] 24 U/L Normal 10 - 40 U/L AO ADM SS Basophils (Bld) [#/Vol] 0.1 103/mcL Normal 0.0 - 0.2 10^3/mcL AO Workflow SS Basophils/100 WBC (Bld) 0.8 % Normal 0.0 - 2.5 % AO Workflow SS Bilirubin [Mass/Vol] 0.5 mg/dL Normal 0.2 - 1 .0 mg/dL AO ADM SS Comment on above: Interpretive Data: U se of this assay is not recommended for patients undergoing treatment with eltrombopag due to the potential for falsely elevated results. Calcium [Mass/Vol] 9.6 mg/dL Normal 8.4 - 10. 2 mg/dL AO ADM SS Chloride [Moles/Vol] 104 mmol/L Normal 98 - 10 7 mmol/L AO ADM SS CO2 [Moles/Vol] 30 mmol/L High 22 - 29 mmol/L AO ADM SS Creatinine [Mass/Vol] 0.74 mg/dL Normal 0.55 - 1.02 mg/dL AO ADM SS Comment on above: Interpretive Data: T esting performed on Siemens Dimension EXL analyzer using a modified kinetic Collin technique. CRP [Mass/Vol] 0.9 mg/dL High 0.0 - 0.3 mg/dL AO ADM SS Electrolyte Balance 9.0 mEq/L Normal 4.0 - 15 .0 mEq/L AO ADM SS Eosinophil, Absolute 0.2 103/mcL Normal 0.0 - 0 .7 10^3/mcL AO Workflow SS Eosinophils/100 WBC (Bld) 1.8 % Normal 0.0 - 7.0 % AO Workflow SS Erythrocyte distribution width (RBC) [Ratio] 13.8 % Normal 11.5 - 15.5 % AO Workflow SS GFR/1.73 sq M.predicted among blacks MDRD (S/P/Bld) [Vol rate/Area] 100 ml/min/1.73sqm Invalid Interpretation Code AO Chemistry S Comment on above: Interpretive Data: GFR Population mean for , Non- Americans Ages 20-29 = 116 mL/min/1.73 sq.m. Ages 30-39 = 107 mL/min/1.73 sq.m. Ages 40-49 = 99 mL/min/1.73 sq.m. Ages 50-59 = 93 mL/min/1.73 sq.m. Ages 60-69 = 85 mL/min/1.73 sq.m. Ages 70+ = 75 mL/min/1.73 sq.m. Chronic Kidney Disease: Less than 60 mL/min/1.73 square meters End Stage Renal Disease: Less than 15 mL/min/1.73 square meters GFR/1.73 sq M.predicted among non-blacks MDRD (S/P/Bld) [Vol rate/Area] 82 ml/min/1.73sqm Invalid Interpretation Code AO Chemistry S Comment on above: Interpretive Data: GFR Population mean for , Non- Americans Ages 20-29 = 116 mL/min/1.73 sq.m. Ages 30-39 = 107 mL/min/1.73 sq.m. Ages 40-49 = 99 mL/min/1.73 sq.m. Ages 50-59 = 93 mL/min/1.73 sq.m. Ages 60-69 = 85 mL/min/1.73 sq.m. Ages 70+ = 75 mL/min/1.73 sq.m. Chronic Kidney Disease: Less than 60 mL/min/1.73 square meters End Stage Renal Disease: Less than 15 mL/min/1.73 square meters Globulin 2.7 G/dL Invalid Interpretation Code AO ADM SS Glucose [Mass/Vol] 99 mg/dL Normal 70 - 105 mg/dL AO ADM SS Hematocrit (Bld) [Volume fraction] 37.9 % Normal 34.0 - 46.0 % AO Workflow SS Hemoglobin (Bld) [Mass/Vol] 12.9 G/dL Normal 12.0 - 16.0 G/dL AO Workflow SS Lymphocytes (Bld) [#/Vol] 3.6 103/mcL Normal 0.9 - 4.3 10^3/mcL AO Workflow SS Lymphocytes/100 WBC (Bld) 38.5 % Normal 20.0 - 40.0 % AO Workflow SS MCH (RBC) [Entitic mass] 31.3 pg Normal 27.0 - 33.0 pg AO Workflow SS MCHC 34.0 G/dL Normal 32.0 - 36.0 G/dL AO Workflow SS MCV (RBC) [Entitic vol] 92.3 fL Normal 80.0 - 99.0 fL AO Workflow SS Monocytes (Bld) [#/Vol] 0.5 103/mcL Normal 0.1 - 1.4 10^3/mcL AO Workflow SS Monocytes/100 WBC (Bld) 5.3 % Normal 2.0 - 13.0 % AO Workflow SS Natriuretic peptide.B prohormone N-Terminal [Mass/Vol] 228 pg/mL High 0 - 125 pg/mL AO ADM SS Comment on above: Interpretive Data: N T-proBNP results of less than 300 pg/mL effectively rules out acute congestive heart failure with 99% negative predictive value. Neutrophils (Bld) [#/Vol] 5.0 103/mcL Normal 2.3 - 8.1 10^3/mcL AO Workflow SS Neutrophils/100 WBC (Bld) 53.6 % Normal 50.0 - 75.0 % AO Workflow SS Platelet mean volume (Bld) [Entitic vol] 10.2 fL Normal 6.6 - 10.5 fL AO Workflow SS Platelets (Bld) [#/Vol] 184 103/mcL Normal 150 - 450 10^3/mcL AO Workflow SS Potassium [Moles/Vol] 4.6 mmol/L Normal 3.5 - 5.1 mmol/L AO ADM SS Protein [Mass/Vol] 6.6 G/dL Normal 6.4 - 8.2 G/dL AO ADM SS RBC (Bld) [#/Vol] 4.10 106/mcL Normal 4.10 - 5.3 0 10^6/mcL AO Workflow SS Sodium [Moles/Vol] 143 mmol/L Normal 136 - 145 mmol/L AO ADM SS TSH Qn 2.93 m[IU]/L Normal 0.36 - 3.74 mcIU/mL AO ADM SS Urea nitrogen [Mass/Vol] 13 mg/dL Normal 7 - 18 mg/dL AO ADM SS Urea nitrogen/Creatinine [Mass ratio] 18 ratio Normal 7 - 27 ratio AO ADM SS WBC (Bld) [#/Vol] 9.3 103/mcL Normal 4.5 - 10.8 10^3/mcL AO Workflow SS LABORATORYOrdered By: Tigre Miller on 04-20-2024 ESR Photometric method (Bld) [Velocity] 23 mm/hr Normal 0 - 30 mm/hr AO Man Heme SS PBNPon 04-20-2024 Natriuretic peptide B (Bld) [Mass/Vol] 228 pg/mL High 0-125 [facility] Comment on above: Result Comment: NT-p roBNP results of less than 300 pg/mL effectively rules out acute congestive heart failure with 99% negative predictive value. Performed By: #### P BNP, CMP, ANEU, TSH, ADIFF, ESR, GFR, CBC, CRP #### [facility] [address] [place], [place] [address] #### RF #### [facility] [address] [place] [address] TSHon 04-20-2024 TSH Qn 2.93 m[IU]/L Normal 0.36-3.74 [facility] Comment on above: Performed By: #### P BNP, CMP, ANEU, TSH, ADIFF, ESR, GFR, CBC, CRP ####[facility] [place], [place] [address]#### RF ####[facility] [place] [address] BNP,B-Type NATRIURETIC PEPTI Maira 04-10-2024 Natriuretic peptide B (Bld) [Mass/Vol] 30.7 pg/mL Normal 0-100 [facility] Comment on above: Performed By: #### L 503.6620, L100.0100, L500.2500 #### [facility] [address] [place], [address] Basic Metabolic Profile (BMP )on 04-10-2024 BUN/CRE 18.5 RATIO Normal 10-20 [facility] Comment on above: Performed By: #### L 503.6620, L100.0100, L500.2500 #### [facility] [address] [place], [address] CA,Total 9.0 mg/dL Normal 8.5-10.1 [facility] Comment on above: Performed By: #### L 503.6620, L100.0100, L500.2500 #### [facility] [address] [place], [address] Chloride [Moles/Vol] 109 mmol/L High 98-107 [facility] Comment on above: Performed By: #### L 503.6620, L100.0100, L500.2500 #### [facility] [address] [place], [address] CO2 [Moles/Vol] 30.0 mmol/L Normal 21.0-32.0 [facility] Comment on above: Performed By: #### L 503.6620, L100.0100, L500.2500 #### [facility] [address] [place], [address] Creatinine [Mass/Vol] 0.76 mg/dL Normal 0.55-1.02 [facility] Comment on above: Result Comment: The validity of the calculated GFR GFRAA in patients over 70 years has not been determined. Clinical correlation is essential. Performed By: #### L 503.6620, L100.0100, L500.2500 #### [facility] [address] [place], [address] ECRCL 114.36 ml/min Normal [facility] Comment on above: Performed By: #### L 503.6620, L100.0100, L500.2500 #### [facility] [address] [place], [address] EST GFR - AA 103 mL/min Normal >60 [facility] Comment on above: Result Comment: Afri can Prydeinig GFR Calc Performed By: #### L 503.6620, L100.0100, L500.2500 #### [facility] [address] [place], [address] GAP 4 Low 5-15 [facility] Comment on above: Performed By: #### L 503.6620, L100.0100, L500.2500 #### [facility] [address] [place], [address] GFR/1.73 sq M.predicted among non-blacks MDRD (S/P/Bld) [Vol rate/Area] 85 mL/min/{1.73_m2} Normal >60 [facility] Comment on above: Result Comment: Non- GFR Calc Performed By: #### L 503.6620, L100.0100, L500.2500 #### [facility] [address] [place], [address] Glucose [Mass/Vol] 104 mg/dL Normal 74-106 [facility] Comment on above: Result Comment: Fast ing Glucose result from 100 to 125 mg/dL suggests IMPAIRED HOMEOSTASIS per A.D.A. criteria. Performed By: #### L 503.6620, L100.0100, L500.2500 #### [facility] [address] [place], [address] Potassium [Moles/Vol] 4.1 mmol/L Normal 3.5-5.1 [facility] Comment on above: Result Comment: Slig ht Hemolysis, Result may be falsely increased. Performed By: #### L 503.6620, L100.0100, L500.2500 #### [facility] [address] [place], [address] Sodium [Moles/Vol] 142 mmol/L Normal 136-145 [facility] Comment on above: Performed By: #### L 503.6620, L100.0100, L500.2500 #### [facility] [address] [place], [address] Urea nitrogen [Mass/Vol] 14 mg/dL Normal 7-18 [facility] Comment on above: Performed By: #### L 503.6620, L100.0100, L500.2500 #### [facility] [address] [place], [address] CBC W/Diff, Automatedon 12-0 Absolute Lymph 4.13 X10 3/uL Normal 0.83-4.51 [facility] Comment on above: Performed By: #### L 503.6620, L100.0100, L500.2500 #### [facility] [address] [place], [address] Absolute Neut 5.0 X10 3/uL Normal 2.0-7.7 [facility] Comment on above: Performed By: #### L 503.6620, L100.0100, L500.2500 #### [facility] [address] [place], [address] Basophils/100 WBC (Bld) 0.5 % Normal 0-1 [facility] Comment on above: Performed By: #### L 503.6620, L100.0100, L500.2500 #### [facility] [address] [place], [address] Eosinophils/100 WBC (Bld) 1.8 % Normal 0-5 [facility] Comment on above: Performed By: #### L 503.6620, L100.0100, L500.2500 #### [facility] [address] [place], [address] Erythrocyte distribution width (RBC) [Ratio] 13.6 % Normal 11.6-14.6 [facility] Comment on above: Performed By: #### L 503.6620, L100.0100, L500.2500 #### [facility] [address] [place], [address] Hematocrit (Bld) [Volume fraction] 35.9 % Low 37-47 [facility] Comment on above: Performed By: #### L 503.6620, L100.0100, L500.2500 #### [facility] [address] [place], [address] Hemoglobin (Bld) [Mass/Vol] 11.9 g/dL Low 12.0-15.0 [facility] Comment on above: Performed By: #### L 503.6620, L100.0100, L500.2500 #### [facility] [address] [place], [address] IG% 0.300 Normal 0.0-0.9 [facility] Comment on above: Result Comment: IG% - Immature Granulocytes (promyelocytes, myelocytes and metamyelocytes) > 1% indicates that a LEFT SHIFT is Present. Performed By: #### L 503.6620, L100.0100, L500.2500 #### [facility] [address] [place], [address] Lymphocytes/100 WBC (Bld) 42.2 % High 19-41 [facility] Comment on above: Performed By: #### L 503.6620, L100.0100, L500.2500 #### [facility] [address] [place], [address] MCH (RBC) [Entitic mass] 30.9 pg Normal 27.0-32.0 [facility] Comment on above: Performed By: #### L 503.6620, L100.0100, L500.2500 #### [facility] [address] [place], [address] MCHC (RBC) [Mass/Vol] 33.1 g/dL Normal 32-36 [facility] Comment on above: Performed By: #### L 503.6620, L100.0100, L500.2500 #### [facility] [address] [place], [address] MCV (RBC) [Entitic vol] 93.2 fL Normal 81-99 [facility] Comment on above: Performed By: #### L 503.6620, L100.0100, L500.2500 #### [facility] [address] [place], [address] Monocytes/100 WBC (Bld) 4.3 % Normal 0-10 [facility] Comment on above: Performed By: #### L 503.6620, L100.0100, L500.2500 #### [facility] [address] [place], [address] Neutrophils/100 WBC (Bld) 50.9 % Normal 47-70 [facility] Comment on above: Performed By: #### L 503.6620, L100.0100, L500.2500 #### [facility] [address] [place], [address] Nucleated RBC (Bld) [#/Vol] 0 10*3/uL Normal 0-5 [facility] Comment on above: Performed By: #### L 503.6620, L100.0100, L500.2500 #### [facility] [address] [place], [address] Platelet mean volume (Bld) [Entitic vol] 12.6 fL High 6.2-12.0 [facility] Comment on above: Performed By: #### L 503.6620, L100.0100, L500.2500 #### [facility] [address] [place], [address] Platelets (Bld) [#/Vol] 212 10*3/uL Normal 150-450 [facility] Comment on above: Performed By: #### L 503.6620, L100.0100, L500.2500 #### [facility] [address] [place], [address] RBC (Bld) [#/Vol] 3.85 10*6/uL Low 4.2-5.4 [facility] Comment on above: Performed By: #### L 503.6620, L100.0100, L500.2500 #### [facility] [address] [place], [address] RDW SD 46.1 fl High 35.1-43.9 [facility] Comment on above: Performed By: #### L 503.6620, L100.0100, L500.2500 #### [facility] [address] [place], [address] WBC (Bld) [#/Vol] 9.8 10*3/uL Normal 4.4-11.0 [facility] Comment on above: Performed By: #### L 503.6620, L100.0100, L500.2500 #### [facility] [address] [place], [address] Chest PA and Lateralon 04-10 Chest PA and Lateral [facility] [address] [place] [address] Chest PA and Lateral MR#: [id number] Acct: [id number] Name: MARCY POSEY Rep #: [id number] : 1970 F 53 From: [place] Lobo PCP: Care Physician,No Primary Status: [facility] ER Study: Chest PA and Lateral Date of Exam: 04/10/24 Exam# [id number] Ordering Dr: Ignacio Pearson DO [id number] STUDY: X-RAY CHEST REASON FOR EXAM: Female, 53 years old. Edema TECHNIQUE: Single frontal view of the chest. COMPARISON: May 04, 2010 FINDINGS: The lungs are clear and expanded. There is no demonstrated pleural abnormality. Normal size heart. Normal mediastinum and arnaldo. Normal visualized pulmonary arteries. Normal visualized aortic arch and descending thoracic aorta. Normal visualized thoracic spine. Normal visualized ribs, clavicles, and shoulders. There is no demonstrated abnormality of the visualized soft tissue structures of the upper abdomen. RAD/Chest PA and Lateral IMPRESSION: Normal x-ray examination of the chest. Electronically Signed: Wagner Flanagan MD at 20:30 EST , CC: Dr. Ignacio Pearson DO; No Primary Care Physician Intermission Coordinator: Signed Normal [facility] Emergency Department Summary on 04-10-2024 Emergency Department Summary [facility] Medical Records Department [address] [place] [address] Emergency Department Summary 04/10/24 MR#: [id number] Acct: [id number] Name: MARCY POSEY Rep #: [id number] : 1970 53 From: Ignacio Pearson DO PCP: Care Physician,No Primary Status:DEP ER Location: ED HPI History of Present Illness HPI Narrative: Patient presents with bilateral foot and ankle pain and swelling that has been getting worse over the past month and a half. Patient states that her primary care physician has tried different anti- inflammatory medications without relief. Patient states she is also been started on cyclobenzaprine recently. Patient states she has also been started on Lasix. Patient states her pain is worse with any ambulation. Patient states it is better with rest. Patient states her pain comes and goes. Patient describes it as aching and burning. Patient states she has some sharp pain in her left ankle at times. Patient admits to some paresthesias but denies any weakness. Chief Complaint: Lower Extremity Injury Onset/Context/Timing Onset: Month(s) (1.5) Context: Gradual Onset Timing: Intermittent Quality of Pain: Dull and Aching Location: Bilateral feet and ankle Worsened by: Ambulation Relieved by: Rash Associated Symptoms Associated Symptoms: Positive for Parasthesia; Negative for Weakness or Loss of Funtion [facility] Medical History (Updated 04/10/24 @ 21:[address] Ignacio Pearson DO) Pancreatitis GERD (gastroesophageal reflux disease) Home Medications ???Medication ???Instructions ???Recorded ???Last Taken ???Type omeprazole 40 mg capsule,delayed 40 mg PO DAILY 05/22/19 Unknown History release diclofenac sodium 75 mg 75 mg PO BID 04/10/24 Unknown History tablet,delayed release loratadine 10 mg tablet 10 mg PO DAILY PRN allergy symptoms 04/10/24 Unknown History Allergy/AdvReac Type Severity Reaction Status Date / Time amoxicillin Allergy Unknown Verified 04/10/24 16:23 azithromycin Allergy Upset Verified 04/10/24 16:23 Stomach cephalexin (From Keflex) Allergy Hives Verified 04/10/24 16:23 cephalexin monohydrate (From Allergy Swelling Verified 04/10/24 16:23 Keflex) erythromycin base Allergy Unknown Verified 04/10/24 16:23 ibuprofen AdvReac Upset Verified 04/10/24 16:23 Stomach tramadol AdvReac Nausea/Vom/ Verified 04/10/24 16:23 Diarrhea Surgical History (Updated 04/10/24 @ 19:[address] Ignacio Pearson, DO) History of 3 sections History of vocal cord polypectomy Hx of cholecystectomy Social History housing: house Smoking Status: Current every day smoker tobacco type: cigarettes and e-cigarettes EXAM Physical Exam Const Vital Signs: 04/10/24 16:23 04/10/24 21:00 Temperature 98.3 F Temperature Source Oral Pulse Rate 79 82 Respiratory Rate 18 18 Blood Pressure 146/110 H 113/99 H Blood Pressure Mean 122 103 Pulse Ox 99 95 Oxygen Delivery Method Room Air Room Air MDM MDM MDM Narrative Medical decision making narrative: Differential diagnosis includes acute kidney injury, peripheral edema, congestive heart failure, and electrolyte abnormality. CBC will be obtained to assess for leukocytosis and anemia. Basic metabolic profile will be obtained to assess for electrolyte abnormality and renal function. BNP will be obtained to assess for congestive heart failure. Chest x-ray will be obtained to assess for pneumonia and congestive heart failure. Lab Data Attestation: I reviewed the patient's lab results. Lab results narrative: CBC was reviewed. There is a slight anemia with a hemoglobin of 11.9 and hematocrit 35.9. Remainder was within normal limits. Basic metabolic profile was reviewed and was within normal limits. He BNP was reviewed and was normal at 30.7. Labs: Laboratory Results - last 24 hr 04/10/24 20:05 WBC 9.8 RBC 3.85 L Hgb 11.9 L Hct 35.9 L MCV 93.2 MCH 30.9 MCHC 33.1 RDW Std Deviation 46.1 H RDW Coeff of Harish 13.6 Plt Count 212 MPV 12.6 H Immature Gran % (Auto) 0.300 Neut % (Auto) 50.9 Lymph % (Auto) 42.2 H [place] % (Auto) 4.3 Eos % (Auto) 1.8 Baso % (Auto) 0.5 Absolute Neuts (auto) 5.0 Absolute Lymphs (auto) 4.13 Nucleated RBC % 0 Sodium 142 Potassium 4.1 Chloride 109 H Carbon Dioxide 30.0 Anion Gap 4 L BUN 14 Creatinine 0.76 Estim Creat Clear Calc 114.36 Est GFR (MDRD) Af Amer 103 Est GFR (MDRD) Non-Af 85 BUN/Creatinine Ratio 18.5 Glucose 104 Calcium 9.0 B-Natriuretic Peptide 30.7 Radiography Chest X-Ray - ED: 2 View, Read by ED Physician, Read by Radiologist and No Acute Disease Diagnostic Testing: Clinical Impression(s) from Imagin (more content not included)... Normal [facility] XR HIP 2-3 VIEWS RIGHTon XR HIP 2-3 VIEWS RIGHT ORIGINAL EXAMINATION: XR right hip two views 03/24/2024 10:31 am COMPARISON: None HISTORY: ORDERING SYSTEM PROVIDED HISTORY: Reason for Exam: right hip pain and stiffness, FINDINGS: No acute fracture, dislocation, bony lytic process or periosteal reaction is seen in the visualized bones and joints. No significant degenerative or erosive type of arthritis or soft tissue calcification. No hip joint space narrowing or other degenerative change. Unremarkable right SI joint. IMPRESSION: No significant skeletal abnormality is seen. Interpreted by: Ab Dickerson MD Preliminary Report By: Ab Dickerson MD Electronically signed By Ab Dickerson MD Dictated Date: 03/27/2024 9:01:48 AM Prelim Date: 03/27/2024 9:02:11 AM Sign Date: 03/27/2024 9:02:11 AM Ordering Provider: KIA CHAPPELL [facility] CNOVon 03-02-2024 CNOV Office Visit ([facility]) MARCY POSEY ([id number]) 1970 F Date Time Provider Department 03/02/24 2:30 PM NINA PERALTA [facility] During your visit today, we recorded the following information about you: Temperature Pulse Respiration Blood pressure 97.6 degrees 71/minute 18/minute 112/73 Weight 122.9 kg Nina Peralta APRN.[employer] 03/02/2024 3:11 PM Signed Subjective HPI Marcy Posey is a 53 year old female who presents with right posterior hip pain that radiates to her right buttock and right upper leg. She has had this for the past 4 days. She denies any injury. She has a history of sciatica but on the left side. 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 She has taken tylenol at home for pain. She has some intermittent tingling of the right leg. She also complains of bilateral feet swelling. States this is chronic. She just bought some compression socks to help with this. Denies chest pain, shortness of breath. She states she does not eat salty foods or add salt to her foods. Works 8 hour shifts at a factory and feet are swollen at the end of her shift. She denies pain in her feet. Review of Systems Constitutional: Negative for chills and fever. Respiratory: Negative for cough and shortness of breath. Cardiovascular: Negative for chest pain. Musculoskeletal: Positive for joint pain. Negative for falls. See HPI Skin: Negative for itching and rash. Neurological: Positive for tingling. Negative for tremors, sensory change, focal weakness and weakness. BP 112/73 Pulse 71 Temp 36.4 ?C (97.6 ?F) Resp 18 Wt 122.9 kg (270 lb 15.1 oz) LMP 02/18/2016 SpO2 98% BMI 40.60 kg/m? PAST MEDICAL HISTORY Diagnosis Date Allergic rhinitis 08/13/2010 Anxiety Asthma childhood Bilateral sciatica 08/13/2010 Dental abscess 03/06/[address] Mitchell GERD (gastroesophageal reflux disease) Heel spur left High risk medications (not anticoagulants) long-term use 03/06/2011 Lower extremity edema Venous insufficiency of leg 06/03/2010 Venous stasis dermatitis 05/15/2010 PAST SURGICAL HISTORY Procedure Laterality Date DELIVERY ONLY 1991 , low transverse DELIVERY ONLY 1992 , low transverse DELIVERY ONLY 1994 , low transverse CHOLECYSTECTOMY Cholecystectomy PAST SURGICAL HISTORY OF polyp removal from larynx ALLERGIES Amoxicillin, Erythromycin, Ibuprofen, Keflex [Cephalexin], and Ultram [Tramadol Hcl] MEDICATIONS predniSONE (DELTASONE) 10 mg tablet Take 4 tabs daily for 3 days, then 2 tabs daily for 3 days, then 1 tab daily for 3 days with food. orphenadrine ER (NORFLEX) 100 mg tablet Take 1 tablet by mouth twice daily. (Patient not taking: Reported on 03/02/2024) indomethacin ER 75 mg CR capsule TAKE 1 CAPSULE BY MOUTH TWICE DAILY WITH MEALS (Patient not taking: Reported on 03/02/2024) albuterol HFA (PROAIR HFA) 90 mcg/actuation inhaler Inhale 2 Puffs as instructed every 4 hours as needed for Wheezing/Shortness of Breath. (Patient not taking: Reported on 03/02/2024) fluticasone (FLONASE) 50 mcg/actuation nasal spray Use 1 Converse in each nostril once daily. (Patient not taking: Reported on 03/02/2024) COMPOUNDED PRESCRIPTION Knee high prescription hose 15-20 mmHg for right and left leg- wearing during the day- remove at night ICD I87.2 (Patient not taking: Reported on 03/02/2024) COMPOUNDED PRESCRIPTION Knee high compression Hose 15-20 mmHg for right and left leg Wear during day, remove at night ICD I87.2 (Patient not taking: Reported on 03/02/2024) furosemide (LASIX) 20 mg tablet Take 1 tablet by mouth once daily. (Patient not taking: Reported on 03/02/2024) Omeprazole 40 mg capsule Take 1 capsule by mouth once daily. (Patient not taking: Reported on 03/02/2024) fexofenadine (SINDY) 180 mg tablet Take 1 tablet by mouth once daily. (Patient not taking: Reported on 03/02/2024) ARIPiprazole (ABILIFY) 5 mg tablet Take 5 mg by mouth once daily. (Patient not taking: Reported on 03/02/2024) citalopram (CELEXA) 20 mg tablet Take 20 mg by mouth once daily. (Patient not taking: Reported on 03/02/2024) FAMILY HISTORY Adopted: Yes Problem Relation Age of Onset Cancer Mother Alcohol/Drug Father Social History Tobacco Use Smoking status: Every Day Current packs/day: 1.50 Average packs/day: 1.5 packs/day for 32.0 years (48.0 ttl pk-yrs) Types: Cigarettes Smokeless tobacco: Never Substance Use Topics Alcohol use: Yes Comment: rarely Drug use: No Comment: stop marijuana in March Objective Physical Exam Vitals and nursing note reviewed. Constitutional: General: She is not in acute distress. Appearance: Normal appearance. She is obese. She is not ill-appearing. Cardiovascular: Rate and Rhythm: Normal rate and regular rhyth (more content not included)... Normal [facility] RAPID INFLUENZA A/B ANTIGENS on 03-14-2022 Influenza A by PCR Not detected Not Detected [employer] Influenza B by PCR Not detected Not Detected [facility]2 [facility])on 03-14-2022 No acute process. [facility] EXAMINATION: TWO XRAY VIEWS OF THE CHEST 03/14/2022 3:02 pm COMPARISON: None. HISTORY: ORDERING SYSTEM PROVIDED HISTORY: Cough TECHNOLOGIST PROVIDED HISTORY: Reason for exam:->Cough FINDINGS: The lungs are without acute focal process. There is no effusion or pneumothorax. The cardiomediastinal silhouette is without acute process. The osseous structures are without acute process. [facility] Rolo Randolph MD - 03/14/2022 EXAMINATION: TWO XRAY VIEWS OF THE CHEST 03/14/2022 3:02 pm COMPARISON: None. HISTORY: ORDERING SYSTEM PROVIDED HISTORY: Cough TECHNOLOGIST PROVIDED HISTORY: Reason for exam:->Cough FINDINGS: The lungs are without acute focal process. There is no effusion or pneumothorax. The cardiomediastinal silhouette is without acute process. The osseous structures are without acute process. IMPRESSION: No acute process. [facility] Phone: Radiology Study observation (narrative) [facility] Phone: XR CHEST (2 VW)Ordered By: Shira Randolph on 03-14-2022 [facility] Phone: CBC With Platelet No Differe nttaishaon 11-04-2021 Hematocrit (Bld) [Volume fraction] 42.2 % Normal 34.0-48.0 [facility] Comment on above: Order Comment: CALL doctor [id number] tel. [phone], [phone] Hemoglobin (Bld) [Mass/Vol] 13.9 g/dL Normal 11.5-15.5 [facility] Comment on above: Order Comment: CALL doctor [id number] tel. [phone], [phone] MCH (RBC) [Entitic mass] 30.5 pg Normal 26.0-35.0 [facility] Comment on above: Order Comment: CALL doctor [id number] tel. [phone], [phone] MCHC 32.9 % Normal 32.0-34.5 [facility] Comment on above: Order Comment: CALL doctor [id number] tel. [phone], [phone] MCV (RBC) [Entitic vol] 92.5 fL Normal 80.0-99.9 [facility] Comment on above: Order Comment: CALL doctor [id number] tel. [phone], [phone] Platelet Count 190 E9/L Normal 130-450 [facility] Comment on above: Order Comment: CALL doctor [id number] tel. [phone], [phone] Platelet mean volume (Bld) [Entitic vol] 13.9 fL High 7.0-12.0 [facility] Comment on above: Order Comment: CALL doctor [id number] tel. [phone], [phone] RBC 4.56 E12/L Normal 3.50-5.50 [facility] Comment on above: Order Comment: CALL doctor [id number] tel. [phone], [phone] RDW 14.5 fL Normal 11.5-15.0 [facility] Comment on above: Order Comment: CALL doctor [id number] tel. [phone], [phone] WBC 9.5 E9/L Normal 4.5-11.5 [facility] Comment on above: Order Comment: CALL doctor [id number] tel. [phone], [phone] Comprehensive Metabolic Pane santos 11-04-2021 Albumin [Mass/Vol] 4.4 g/dL Normal 3.5-5.2 [facility] Comment on above: Order Comment: CALL doctor [id number] tel. [phone], [phone] ALP [Catalytic activity/Vol] 125 U/L High 35-104 [facility] Comment on above: Order Comment: CALL doctor [id number] tel. [phone], [phone] ALT [Catalytic activity/Vol] 24 U/L Normal 0-32 [facility] Comment on above: Order Comment: CALL doctor [id number] tel. [phone], [phone] Anion gap [Moles/Vol] 15 mmol/L Normal 7-16 [facility] Comment on above: Order Comment: CALL doctor [id number] tel. [phone], [phone] AST [Catalytic activity/Vol] 21 U/L Normal 0-31 [facility] Comment on above: Order Comment: CALL doctor [id number] tel. [phone], [phone] Bilirubin [Mass/Vol] 0.5 mg/dL Normal 0.0-1.2 [facility] Comment on above: Order Comment: CALL doctor H4296 tel. [phone], [phone] Calcium [Mass/Vol] 9.4 mg/dL Normal 8.6-10.2 [facility] Comment on above: Order Comment: CALL doctor [id number] tel. [phone], [phone] Chloride [Moles/Vol] 103 mmol/L Normal 98-107 [facility] Comment on above: Order Comment: CALL doctor [id number] tel. [phone], [phone] CO2 [Moles/Vol] 25 mmol/L Normal 22-29 [facility] Comment on above: Order Comment: CALL doctor [id number] tel. [phone], [phone] Creatinine [Mass/Vol] 1.0 mg/dL Normal 0.5-1.0 [facility] Comment on above: Order Comment: CALL doctor H4296 tel. [phone], [phone] GFR Calculated >60 Normal >=60 [facility] Comment on above: Order Comment: CALL doctor H4296 tel. [phone], [phone] Result Comment: [employer] Director ren Kidney Disease: less than 60 ml/min/1.73 sq.m. Kidney Failure: less than 15 ml/min/1.73 sq.m. Results valid for patients 18 years and older. GFR/1.73 sq M.predicted among blacks MDRD (S/P/Bld) [Vol rate/Area] mL/min/{1.73_m2} Normal [facility] Comment on above: Order Comment: CALL doctor [id number] tel. [phone], [phone] Glucose [Mass/Vol] 112 mg/dL High 74-99 [facility] Comment on above: Order Comment: CALL doctor [id number] tel. [phone], [phone] Potassium [Moles/Vol] 3.9 mmol/L Normal 3.5-5.0 [facility] Comment on above: Order Comment: CALL doctor [id number] tel. [phone], [phone] Protein [Mass/Vol] 7.6 g/dL Normal 6.4-8.3 [facility] Comment on above: Order Comment: CALL doctor [id number] tel. [phone], [phone] Sodium [Moles/Vol] 143 mmol/L Normal 132-146 [facility] Comment on above: Order Comment: CALL doctor [id number] tel. [phone], [phone] Urea nitrogen [Mass/Vol] 11 mg/dL Normal 6-20 [facility] Comment on above: Order Comment: CALL doctor [id number] tel. [phone], [phone] Folateon 11-04-2021 Folate 7.1 ng/mL Normal 4.8-24.2 [facility] Comment on above: Order Comment: CALL doctor [id number] tel. [phone], [phone] Hgb A1Con 11-04-2021 HbA1c (Bld) [Mass fraction] 5.7 % High 4.0-5.6 [facility] Comment on above: Order Comment: CALL doctor [id number] tel. [phone], [phone] Iron Profileon 11-04-2021 % Saturation 19 % Normal 15-50 [facility] Comment on above: Order Comment: CALL doctor [id number] tel. [phone], [phone] Iron [Mass/Vol] 68 ug/dL Normal 37-145 [facility] Comment on above: Order Comment: CALL doctor H4296 tel. [phone], [phone] Iron Binding Capacity 349 mcg/dL Normal 250-450 [facility] Comment on above: Order Comment: CALL doctor [id number] tel. [phone], [phone] Lipid Panelon 11-04-2021 Cholesterol [Mass/Vol] 213 mg/dL High 0-199 [facility] Comment on above: Order Comment: CALL doctor H4296 tel. [phone], [phone] Cholesterol in HDL [Mass/Vol] 34 mg/dL Normal >40 [facility] Comment on above: Order Comment: CALL doctor H4296 tel. [phone], [phone] Cholesterol in LDL [Mass/Vol] 153 mg/dL High 0-99 [facility] Comment on above: Order Comment: CALL doctor H4296 tel. [phone], [phone] Triglyceride [Mass/Vol] 130 mg/dL Normal 0-149 [facility] Comment on above: Order Comment: CALL doctor [id number] tel. [phone], [phone] VLDL Cholesterol (Calculated) 26 mg/dL Normal [facility] Comment on above: Order Comment: CALL doctor H4296 tel. [phone], [phone] T3 Totalon 11-04-2021 T3 Total 111.90 ng/dL Normal 80.00-200.00 [facility] Comment on above: Order Comment: CALL doctor H4296 tel. [phone], [phone] TSH w/out Reflexon 2 TSH w/out Reflex 2.370 uIU/mL Normal 0.270-4.200 [facility] Comment on above: Order Comment: CALL doctor [id number] tel. [phone], [phone] UR Drugs of Abuse Panelon UR Amphetamines Screen Not detected Normal Negative <1000 ng/mL [facility] Comment on above: Order Comment: CALL doctor [id number] tel. [phone], [phone] UR Barbiturates Screen Not detected Normal Negative < 200 ng/mL [facility] Comment on above: Order Comment: CALL doctor H4296 tel. [phone], [phone] UR Benzo Screen Not detected Normal Negative < 200 ng/mL [facility] Comment on above: Order Comment: CALL doctor H4296 tel. [phone], [phone] UR Cannabinoids Screen Positive Abnormal Negative < 50ng/mL [facility] Comment on above: Order Comment: CALL doctor H4296 tel. [phone], [phone] UR Cocaine Screen Not detected Normal Negative < 300 ng/mL [facility] Comment on above: Order Comment: CALL doctor [id number] tel. [phone], [phone] UR Fentanyl Screen Not detected Normal Negative <1 ng/mL [facility] Comment on above: Order Comment: CALL doctor [id number] tel. [phone], [phone] UR Methadone Screen Not detected Normal Negative <300 ng/mL [facility] Comment on above: Order Comment: CALL doctor H4296 tel. [phone], [phone] UR Opiates Screen Not detected Normal Negative < 300ng/mL [facility] Comment on above: Order Comment: CALL doctor H4296 tel. [phone], [phone] Result Comment: Note : The Opiate Screen is not intended to detect Oxycodone. UR Oxycodone Screen Not detected Normal Negative <100 ng/mL [facility] Comment on above: Order Comment: CALL doctor [id number] tel. [phone], [phone] UR PCP Screen Not detected Normal Negative < 25 ng/mL [facility] Comment on above: Order Comment: CALL doctor H4296 tel. [phone], [phone] Drug Screen Comment see below Normal [facility] Comment on above: Order Comment: CALL doctor [id number] tel. [phone], [phone] Result Comment: Thes e drug screen results are for medical purposes only and should not be considered definitive or confirmed. The drug methodology concentration value must be greater than or equal to the cutoff to be reported as positive. Confirmatory testing orders and/or interpretive screening questions can be directed to toxicology at [phone]. The absence of expected drug(s) and/or metabolite(s) may be due to inappropriate timing of specimen collection relative to drug administration, poor drug absorption, diluted/adulterated urine, or limitations of screening testing methodology. Vitamin B12on 11-04-2021 Cobalamin (Vitamin B12) [Mass/Vol] 331 pg/mL Normal 211-946 [facility] Comment on above: Order Comment: CALL doctor [id number] tel. [phone], [phone] Vitamin D, 25-hydroxyon 07-0 Vitamin D, 25-hydroxy 12 ng/mL Low 30-100 [facility] Comment on above: Order Comment: CALL doctor [id number] tel. [phone], [phone] Result Comment: <20 ng/mL.............Deficient 20-30 ng/mL...........Insufficient 30-100 ng/mL..........Sufficient >100 ng/mL............Toxic XR ELBOW RIGHT (MIN 3 VIEWS) on 08-25-2021 No acute abnormality. [facility] EXAMINATION: THREE XRAY VIEWS OF THE RIGHT ELBOW 08/25/2021 5:02 pm COMPARISON: None. HISTORY: ORDERING SYSTEM PROVIDED HISTORY: pain x 2 months TECHNOLOGIST PROVIDED HISTORY: Reason for exam:->pain x 2 months FINDINGS: There is no elbow effusion. There is no acute fracture or dislocation. Alignment is normal. [facility] Nikolas Pittman MD - 08/25/2021 EXAMINATION: THREE XRAY VIEWS OF THE RIGHT ELBOW 08/25/2021 5:02 pm COMPARISON: None. HISTORY: ORDERING SYSTEM PROVIDED HISTORY: pain x 2 months TECHNOLOGIST PROVIDED HISTORY: Reason for exam:->pain x 2 months FINDINGS: There is no elbow effusion. There is no acute fracture or dislocation. Alignment is normal. IMPRESSION: No acute abnormality. [facility] Phone: Radiology Study observation (narrative) [facility] Phone: XR ELBOW RIGHT (MIN 3 VIEWS) Ordered By: Nikolas Pittman on 08-25-2021 [facility] Phone: [facility]Con 01-03-2019 Erythrocyte distribution width (RBC) [Ratio] 14.3 fL 11.5 - 15 fL [place] Hematocrit (Bld) [Volume fraction] 41.2 % 34 - 48 % [place] Hemoglobin (Bld) [Mass/Vol] 13.1 g/dL 11.5 - 15.5 g/dL [place] MCH (RBC) [Entitic mass] 30.9 pg 26 - 35 pg [place] MCHC (RBC) [Mass/Vol] 31.8 % Low 32 - 34.5 % Me [place] MCV (RBC) [Entitic vol] 97.2 fL 80 - 99.9 fL [place] Platelet mean volume (Bld) [Entitic vol] 13.5 fL High 7 - 12 fL [place], [place] Platelets (Bld) [#/Vol] 220 10*3/uL [place] RBC (Bld) [#/Vol] 4.24 10*6/uL [place] WBC (Bld) [#/Vol] 12.0 10*3/uL High [place] Comprehensive Metabolic Pane santos 01-03-2019 Albumin [Mass/Vol] 4.2 g/dL 3.5 - 5.2 g/dL [place] ALP [Catalytic activity/Vol] 116 U/L High 35 - 104 U/L [place] ALT [Catalytic activity/Vol] 21 U/L 0 - 32 U/L [place] Anion gap [Moles/Vol] 17 mmol/L High 7 - 16 mmol/L [place] AST [Catalytic activity/Vol] 16 U/L 0 - 31 U/L [place] Bilirubin Ql (U) 0.4 mg/dL 0 - 1.2 mg/dL [place] Calcium [Mass/Vol] 9.6 mg/dL 8.6 - 10. 2 mg/dL [place] Chloride [Moles/Vol] 101 mmol/L 98 - 10 7 mmol/L [place] CO2 [Moles/Vol] 24 mmol/L 22 - 29 mmol/L [place] Creatinine [Mass/Vol] 0.9 mg/dL 0.5 - 1 mg/dL [place] GFR >60 [place] GFR Non- >60 >=60 mL/min/1.73 [place] Comment on above: Chronic Kidney Disea se: less than 60 ml/min/1.73 sq.m. Kidney Failure: less than 15 ml/min/1.73 sq.m. Results valid for patients 18 years and older. Glucose [Mass/Vol] 116 mg/dL High 74 - 99 mg/dL [place] Potassium [Moles/Vol] 4.9 mmol/L 3.5 - 5 mmol/L [place] Protein [Mass/Vol] 7.8 g/dL 6.4 - 8.3 g/dL [place] Sodium [Moles/Vol] 142 mmol/L 132 - 146 mmol/L [place] Urea nitrogen [Mass/Vol] 10 mg/dL 6 - 20 mg/dL [place] Lipid Panelon 01-03-2019 Cholesterol [Mass/Vol] 184 mg/dL 0 - 199 mg/dL [place] Cholesterol in HDL [Mass/Vol] 30 mg/dL >40 [place] Cholesterol in LDL [Mass/Vol] 119 mg/dL High 0 - 99 mg/dL [place] Triglyceride [Mass/Vol] 174 mg/dL High 0 - 149 mg/dL [place] VLDL Cholesterol Calculated 35 mg/dL [place] Otheron 01-03-2019 Interpretation and review of laboratory results Abnormal [place] TSH without Reflexon 09-03-2 019 TSH Qn 3.870 m[IU]/L Otilia Bueno h- [place], [place] Vital Signs Date Time Vital Sign Value Performing Clinician Facility 11-20-2024 11:38-0400 Body temperature 99.1 [degF] No Primary Care Physician [facility] 11-20-2024 11:38-0400 Diastolic blood pressure 71 mm[Hg] No Primary Care Physician [facility] 11-20-2024 11:38-0400 Heart rate 91 /min No Primary Care Physician [facility] 11-20-2024 11:38-0400 Respiratory rate 14 /min No Primary Care Physician [facility] 11-20-2024 11:38-0400 SaO2% (BldA) [Mass fraction] 98 % No Primary Care Physician [facility] 11-20-2024 11:38-0400 Systolic blood pressure 118 mm[Hg] No Primary Care Physician [facility] 11-20-2024 10:21-0400 Body height 167.64 cm No Primary Care Physician [facility] 11-20-2024 10:21-0400 Body mass index (BMI) [Ratio] 41.3 kg/m2 No Primary Care Physician [facility] 11-20-2024 10:21-0400 Body weight 116.25 kg No Primary Care Physician [facility] 11-15-2024 07:47-0400 Body temperature 97.7 [degF] No Primary Care Physician [facility] 11-15-2024 07:47-0400 Diastolic blood pressure 96 mm[Hg] No Primary Care Physician [facility] 11-15-2024 07:47-0400 Heart rate 71 /min No Primary Care Physician [facility] 11-15-2024 07:47-0400 Respiratory rate 18 /min No Primary Care Physician [facility] 11-15-2024 07:47-0400 SaO2% (BldA) [Mass fraction] 100 % No Primary Care Physician [facility] 11-15-2024 07:47-0400 Systolic blood pressure 147 mm[Hg] No Primary Care Physician [facility] 11-15-2024 07:08-0400 Body height 167.64 cm No Primary Care Physician [facility] 11-11-2024 12:43-0400 Body mass index (BMI) [Ratio] 38.32 kg/m2 Wagner Man MD Work Phone: [facility] 11-11-2024 12:43-0400 Body temperature 98.49 [degF] Wagner Man MD Work Phone: [facility] 11-11-2024 12:43-0400 Body weight 116 kg Wagner Man MD Work Phone: [facility] 11-11-2024 12:43-0400 Diastolic blood pressure 72 mm[Hg] Wagner Man MD Work Phone: [facility] 11-11-2024 12:43-0400 Heart rate 64 /min Wagner Man MD Work Phone: [facility] 11-11-2024 12:43-0400 Respiratory rate 18 /min Wagner Man MD Work Phone: [facility] 11-11-2024 12:43-0400 SaO2% (BldA) [Mass fraction] 98 % Wagner Man MD Work Phone: [facility] 11-11-2024 12:43-0400 Systolic blood pressure 132 mm[Hg] Wagner Man MD Work Phone: [facility] 10-27-2024 12:22-0400 Body temperature 98.5 [degF] No Primary Care Physician [facility] 10-27-2024 12:22-0400 Diastolic blood pressure 83 mm[Hg] No Primary Care Physician [facility] 10-27-2024 12:22-0400 Heart rate 66 /min No Primary Care Physician [facility] 10-27-2024 12:22-0400 Respiratory rate 14 /min No Primary Care Physician [facility] 10-27-2024 12:22-0400 SaO2% (BldA) [Mass fraction] 100 % No Primary Care Physician [facility] 10-27-2024 12:22-0400 Systolic blood pressure 159 mm[Hg] No Primary Care Physician [facility] 10-27-2024 09:43-0400 Body height 167.64 cm No Primary Care Physician [facility] 10-27-2024 09:43-0400 Body mass index (BMI) [Ratio] 21.9 kg/m2 No Primary Care Physician [facility] 10-27-2024 09:43-0400 Body weight 61.8 kg No Primary Care Physician [facility] 03-02-2024 14:35-0400 Body mass index (BMI) [Ratio] 40.6 kg/m2 Nina Praisler-Wood INVESTIGATOR WELFARE.[employer] Work Phone: [facility] 03-02-2024 14:35-0400 Body temperature 97.59 [degF] Nina Praisler-Wood INVESTIGATOR WELFARE.[employer]EM[employer] Work Phone: [facility] 03-02-2024 14:35-0400 Body weight 122.9 kg Nina Praisler-Wood INVESTIGATOR [employer]EL[employer] Work Phone: [facility] 03-02-2024 14:35-0400 Diastolic blood pressure 73 mm[Hg] Nina Praisler-Wood INVESTIGATOR [employer] Work Phone: [facility] 03-02-2024 14:35-0400 Heart rate 71 /min Nina Praisler-Wood INVESTIGATOR W[employer] Work Phone: [facility] 03-02-2024 14:35-0400 Respiratory rate 18 /min Nina Praisler-Wood INVESTIGATOR WEL[employer] Work Phone: [facility] 03-02-2024 14:35-0400 SaO2% (BldA) [Mass fraction] 98 % Nina Praisler-Wood INVESTIGATOR [employer] Work Phone: [facility] 03-02-2024 14:35-0400 Systolic blood pressure 112 mm[Hg] Nina Praisler-Wood INVESTIGATOR [employer] Work Phone: [facility] 01-01-2024 19:07-0400 Body height 167.6 cm Michelle Bay MD Work Phone: [facility] 01-01-2024 19:07-0400 Body mass index (BMI) [Ratio] 35.51 kg/m2 Michelle Bay MD Work Phone: [email or web address] 01-01-2024 19:07-0400 Body temperature 97.7 [degF] Michelle Bay MD Work Phone: [facility] [employer] 01-01-2024 19:07-0400 Body weight 99.79 kg Michelle Bay MD Work Phone: [email or web address] 01-01-2024 19:07-0400 Diastolic blood pressure 60 mm[Hg] Michelle Bay MD Work Phone: [email or web address] 01-01-2024 19:07-0400 Heart rate 78 /min Michelle Bay MD Work Phone: [email or web address] 01-01-2024 19:07-0400 Respiratory rate 18 /min Michelle Bay MD Work Phone: [email or web address] 01-01-2024 19:07-0400 SaO2% (BldA) [Mass fraction] 99 % Michelle Bay MD Work Phone: [email or web address] 01-01-2024 19:07-0400 Systolic blood pressure 118 mm[Hg] Michelle Bay MD Work Phone: [email or web address] 03-14-2022 14:30-0500 Body height 167.6 cm Oliver Pierre MD Work Phone: [email or web address] 03-14-2022 14:30-0500 Body mass index (BMI) [Ratio] 40.35 kg/m2 Oliver Pierre MD Work Phone: [email or web address] 03-14-2022 14:30-0500 Body temperature 96.01 [degF] Oliver Pierre MD Work Phone: [email or web address] 03-14-2022 14:30-0500 Body weight 113.4 kg Oliver [facility] 03-14-2022 14:30-0500 Diastolic blood pressure 88 mm[Hg] Oliver Pierre MD [facility] 03-14-2022 14:30-0500 Heart rate 90 /min Oliver Pierre MD [facility] 03-14-2022 14:30-0500 Respiratory rate 20 /min Oliver Pierre MD [facility] 03-14-2022 14:30-0500 SaO2% (BldA) [Mass fraction] 95 % Oliver Pierre MD [facility] 03-14-2022 14:30-0500 Systolic blood pressure 122 mm[Hg] Oliver Pierre MD Work Phone: [facility] [employer] 08-25-2021 16:32-0400 Body height 167.6 cm Michelle Bay MD Work Phone: [employer] 08-25-2021 16:32-0400 Body mass index (BMI) [Ratio] 41.97 kg/m2 Michelle Bay MD Work Phone: [employer] 08-25-2021 16:32-0400 Body temperature 97.11 [degF] Michelle Bay MD Work Phone: [employer] 08-25-2021 16:32-0400 Body weight 117.94 kg Michelle Bay MD Work Phone: [employer] 08-25-2021 16:32-0400 Diastolic blood pressure 84 mm[Hg] Michelle Bay MD Work Phone: [employer] 08-25-2021 16:32-0400 Heart rate 78 /min Michelle Bay MD Work Phone: [employer] 08-25-2021 16:32-0400 Respiratory rate 16 /min Michelle Bay MD Work Phone: [employer] 08-25-2021 16:32-0400 SaO2% (BldA) [Mass fraction] 97 % Michelle Bay MD Work Phone: [employer] 08-25-2021 16:32-0400 Systolic blood pressure 127 mm[Hg] Michelle Bay MD Work Phone: [employer] 02-04-2021 16:44-0400 Body height 167.6 cm Srinivas Bunch [employer] Work Phone: [employer] Work Phone: 02-04-2021 16:44-0400 Body mass index (BMI) [Ratio] 40.35 kg/m2 Srinivas Bunch DO Work Phone: [employer] Work Phone: 02-04-2021 16:44-0400 Body temperature 97.7 [degF] Srinivas Bunch DO Work Phone: [employer] Work Phone: 02-04-2021 16:44-0400 Body weight 113.4 kg Srinivas Bunch DO Work Phone: [employer] Work Phone: 02-04-2021 16:44-0400 Diastolic blood pressure 82 mm[Hg] Srinivas Bunch DO Work Phone: [employer] Work Phone: 02-04-2021 16:44-0400 Heart rate 88 /min Srinivas Bunch DO Work Phone: [employer] Work Phone: 02-04-2021 16:44-0400 Respiratory rate 16 /min Srinivas Bunch DO Work Phone: [employer] Work Phone: 02-04-2021 16:44-0400 SaO2% (BldA) [Mass fraction] 100 % Srinivas Bunch DO Work Phone: [employer] Work Phone: 02-04-2021 16:44-0400 Systolic blood pressure 123 mm[Hg] Srinivas Bunch DO Work Phone: [employer] Work Phone: 10-18-2020 15:44-0400 Body temperature 97.11 [degF] Oliver Pierre MD Work Phone: [employer] Work Phone: 10-18-2020 15:44-0400 Diastolic blood pressure 87 mm[Hg] Oliver Pierre MD Work Phone: [employer] Work Phone: 10-18-2020 15:44-0400 Heart rate 83 /min Oliver Pierre MD Work Phone: [employer] Work Phone: 10-18-2020 15:44-0400 Respiratory rate 12 /min Oliver Pierre MD Work Phone: [employer] Work Phone: 10-18-2020 15:44-0400 SaO2% (BldA) [Mass fraction] 96 % Oliver Pierre MD Work Phone: [employer] Work Phone: 10-18-2020 15:44-0400 Systolic blood pressure 122 mm[Hg] Oliver Pierre MD Work Phone: [employer] Work Phone: 07-28-2019 16:18-0400 BMI (Body Mass Index) 37.12 kg/m2 [facility] [place] 07-28-2019 16:18-0400 Body Temperature 98.49 [degF] [facility] [place] 07-28-2019 16:18-0400 Body weight 104.33 kg [facility] [place] 07-28-2019 16:18-0400 BP Diastolic 74 mm[Hg] [facility] [place] 07-28-2019 16:18-0400 BP Systolic 112 mm[Hg] [facility] [place] 07-28-2019 16:18-0400 Pulse (Heart Rate) 80 /min [facility] [place] 07-28-2019 16:18-0400 Pulse Oximetry 97 % [facility] [place] 07-28-2019 16:18-0400 Respiratory Rate 20 /min [facility] [place] 01-02-2019 18:22-0400 BMI (Body Mass Index) 37.77 kg/m2 [facility] [place] 01-02-2019 18:22-0400 Body Temperature 100.09 [degF] [facility] [place] 01-02-2019 18:22-0400 Body weight 106.14 kg [facility] [place] 01-02-2019 18:22-0400 BP Diastolic 80 mm[Hg] [facility] [place] 01-02-2019 18:22-0400 BP Systolic 116 mm[Hg] [facility] [place] 01-02-2019 18:22-0400 Height 167.6 cm [facility] [place] 01-02-2019 18:22-0400 Pulse (Heart Rate) 68 /min [facility] [place] 01-02-2019 18:22-0400 Pulse Oximetry 97 % [facility] [place] 01-02-2019 18:22-0400 Respiratory Rate 16 /min [facility] [place] Encounters Encounter Date Encounter Type Care Provider Facility Start: 12-04-2024 ambulatory Kia Jimenez ty:[facility] Start: 11-27-2024 End: 11-27-2024 ambulatory KIA CHAPPELL [facility] Start: 11-27-2024 End: 11-27-2024 Patient encounter procedure KIA CHAPPELL INVESTIGATOR WELFARE-[employer]EMAN [facility] Start: 11-21-2024 End: 11-22-2024 ambulatory Yosvany Lee PA Work Phone: [facility] Comment on above: Medication Problem Start: 11-21-2024 End: 11-21-2024 Telephone encounter Yosvany Lee PA Work Phone: [facility] Start: 11-20-2024 End: 11-20-2024 Emergency department patient visit No Primary Care Physician -Emergency Department Work Phone: Start: 11-15-2024 End: 11-15-2024 Emergency department patient visit No Primary Care Physician -Emergency Department Work Phone: Start: 11-12-2024 End: 11-12-2024 Follow-up encounter Yosvany MARRUFO Work Phone: [facility] Comment on above: Results Start: 11-11-2024 End: 11-11-2024 Office outpatient visit 25 minutes Wagner Man MD Work Phone: [facility] Comment on above: Sore in nose (Primar y Dx); Swelling of right side of face Start: 11-11-2024 End: 11-11-2024 ambulatory WAGNER MAN Facility:[facility] Start: 10-27-2024 End: 10-27-2024 Emergency department patient visit No Primary Care Physician -Emergency Department Work Phone: Start: 07-31-2024 End: 07-31-2024 ambulatory KIA CHAPPELL [facility] Start: 05-16-2024 ambulatory KIA CHAPPELL Facility: [facility] Start: 05-12-2024 ambulatory Kia Chappell LIFE TEACHER Facili ty:[facility] Start: 04-21-2024 End: 04-21-2024 ambulatory KIA CHAPPELL [facility] Start: 04-21-2024 End: 04-21-2024 Patient encounter procedure ASHER SHULTZ INVESTIGATOR WELFARE-[employer]EMAN [facility] Start: 04-20-2024 End: 04-20-2024 ambulatory KIA CHAPPELL [facility] Start: 04-20-2024 End: 04-20-2024 Patient encounter procedure ASHER SHULTZ INVESTIGATOR WELFARE[employer]EMAN [facility] Start: 04-10-2024 End: 04-10-2024 Emergency department patient visit No Primary Care Physician Facility:[facility] Start: 03-24-2024 End: 03-24-2024 ambulatory KIA CHAPPELL [facility] Start: 03-24-2024 End: 03-24-2024 Patient encounter procedure KIA CHAPPELL INVESTIGATOR WELF[employer]EMAN [facility] Start: 03-17-2024 End: 03-31-2024 ambulatory KIA CHAPPELL [facility] Start: 03-17-2024 End: 03-31-2024 Physical therapy management KIA CHAPPELL INVESTIGATOR WELF[employer]EMAN [facility] Start: 03-02-2024 End: 03-02-2024 ambulatory WAGNER MAN Facility:[facility] Start: 03-02-2024 End: 03-02-2024 Patient encounter procedure Nina Peralta INVESTIGATOR WELFARE.[employer]AN Work Phone: [facility] Comment on above: Sciatica, right side (Primary Dx); Bilateral swelling of feet Start: 03-01-2024 End: 03-01-2024 Emergency department patient visit No Primary Care Physician Facility:[facility] Start: 02-23-2024 ambulatory GEORGE DELUCA Facility:[facility] Start: 01-01-2024 End: 01-01-2024 Emergency department patient visit Michelle Bay MD Work Phone: [facility] Comment on above: Rhus dermatitis (Michelle Dx) Start: 12-08-2023 End: 12-08-2023 [facility] Start: 08-14-2022 ambulatory [facility] Start: 08-07-2022 End: 08-10-2022 ambulatory [facility] Start: 08-07-2022 End: 08-09-2022 Subsequent hospital visit by physician [facility] Comment on above: Encounter for screen ing mammogram for malignant neoplasm of breast Start: 03-14-2022 End: 03-14-2022 Emergency department patient visit Olievr Pierre MD Work Phone: [facility] Comment on above: Viral illness (Prima ry Dx) Start: 01-09-2022 End: 01-12-2022 ambulatory [facility] Start: 01-09-2022 End: 01-11-2022 Subsequent hospital visit by physician [facility] Comment on above: Encounter for screen ing mammogram for malignant neoplasm of breast Start: 09-24-2021 End: 09-24-2021 Subsequent hospital visit by physician Kareem Hartley MD Work Phone: [facility] Start: 08-25-2021 End: 08-25-2021 Emergency department patient visit Michelle Bay MD Work Phone: [facility] Comment on above: Right elbow pain (Pr imary Dx) Start: 02-04-2021 End: 02-04-2021 Emergency department patient visit Srinivas Bunch DO Work Phone: [facility] Comment on above: Gingivitis (Primary Dx); Arthritis of right knee Start: 10-18-2020 End: 06-18-2021 Emergency department patient visit Oliver Pierre MD Work Phone: [facility] Comment on above: Gastritis and duoden itis (Primary Dx) Start: 07-28-2019 End: 07-28-2019 Subsequent hospital visit by physician Kareem Hartley [facility] Comment on above: Acute otitis externa of right ear, unspecified type (Primary Dx) Start: 01-03-2019 End: 01-05-2019 Subsequent hospital visit by physician Kareem Hartley [facility] Comment on above: Fatigue, unspecified type; Screening cholesterol level Start: 01-02-2019 End: 01-02-2019 Emergency department patient visit Leora Verduzco Work Phone: [facility] Comment on above: Pain, dental (Primar y Dx); Dental caries Procedures Date Procedure Procedure Detail Performing Clinician Start: 10-27-2024 Plain x-ray of elbow No Primary Care Physician Start: 08-07-2022 Screening mammograph y bi 2-view breast inc cad KAREEM HARTLEY Start: 03-14-2022 Radiologic exam ches t 2 views Oliver Pierre MD Work Phone: Start: 03-14-2022 Iaadiadoo influenza Ramo Pierre MD Work Phone: Start: 01-09-2022 Screening mammograph y bi 2-view breast inc cad KAREEM HARTLEY Start: 11-04-2021 Lipid 1996 panel - S willian or Plasma Nina Peralta INVESTIGATOR WELFARE.TONY Work Phone: Start: 08-25-2021 Radex elbow complete minimum 3 views Michelle Bay MD Work Phone: Start: 01-03-2019 Assay of thyroid stimulating hormone tsh Kareem Hartley Work Phone: Start: 01-03-2019 Blood count complete automated Kareem Hartley Work Phone: Start: 01-03-2019 Comprehensive metabo lic panel Kareem BenedictDrea Work Phone: Start: 01-03-2019 Lipid panel Kareem Hinson Odilia Work Phone: Plan of Treatment Date Care Activity Detail Author Start: 12-08-2027 Urine microalbumin profile DTaP,Tdap,Td Vaccine (2 - Td or Tdap) [facility] Start: 11-04-2026 Lipid panel [facility] Start: 01-01-2025 Influenza vaccination Influenza Vacc ine (#1) [facility] Start: 11-20-2024 [facility] Start: 11-15-2024 [facility] Start: 11-11-2024 End: 02-10-2025 Herpes simplex virus+Varicella zoster virus DNA [Presence] in Unspecified specimen by ROSA with probe detection HERPES SIMPLEX VIRUS (HSV-1 & HSV-2) AND VARICELLA ZOSTER VIRUS (VZV), NAAT, [facility]ES[facility] SWAB Lab Routine Sore in nose Expected: 11/11/2024, Expires: 02/10/2025 [facility] Comment on above: Expected: 11/11/2024 , Expires: 02/10/2025 Start: 11-04-2024 Diabetes Screening Diabetes Screenin g [facility] Start: 10-27-2024 [facility] Start: 01-04-2024 Lipid panel [facility] Start: 01-04-2024 Lipid screen Lipid screen [facility]- [place], [place] Start: 01-02-2024 Covid-19 Vaccine ( season) Covid-19 Vaccine ( season) [facility] Start: 01-02-2024 Influenza vaccination Influenza Vacc ine (#1) [facility] Start: 12-02-2023 Influenza vaccination Flu vaccine (# 1) [facility] Start: 07-07-2023 Depression Monitoring Depression Mon itoring [facility] Start: 01-01-2023 COVID-19 Vaccine ( season) COVID-19 Vaccine ( season) [facility] Start: 12-02-2022 Depression Monitoring Depression Mon itoring [facility] Start: 12-01-2022 Influenza vaccination Flu vacc ine (Season Ended) [facility] Start: 11-04-2022 Hemoglobin A1c measurement A1C test (Diabetic or Prediabetic) [facility] Start: 10-06-2022 End: 10-06-2022 Patient encounter procedure 10/06/2022 Office Visit Family Medicine Kareem Hartley MD [address] [place] [phone] [facility] Start: 03-11-2022 End: 03-11-2022 Patient encounter procedure 03/11/2022 Office Visit Family Kareem Sexton MD [address] [place] [phone] [facility] Start: 01-01-2022 Influenza vaccination [facility] Start: 12-01-2021 Influenza vaccination Flu vaccine (# 1) [facility] Start: 2021 Screening for malign ant neoplasm of breast Breast cancer screen [facility] Start: 2021 Screening for malign ant neoplasm of lung [facility] Start: 2021 Shingles Vaccine (1 of 2) Shingles Vaccine (1 of 2) [facility] Start: 2021 Shingrix Vaccine (1 of 2) Shingrix Vaccine (1 of 2) [facility] Start: 01-01-2021 Influenza vaccination [facility] Work Phone: Start: 10-02-2020 Depression Monitoring Depression Mon [facility] Start: 01-04-2020 Creatinine measurement [facility] Start: 01-04-2020 Creatinine monitoring Creatinine mon [place] [facility] [place] Start: 01-04-2020 Potassium [Moles/volume] in Serum or Plasma Potassium [facility] Start: 01-04-2020 Potassium monitoring Potassium monit [facility] [place] [place] Start: 09-07-2019 End: 09-07-2019 Office Visit 09/07/2019 Office Visit Family Medicine Kareem Hartley MD [address] [place] [phone] [facility] Start: 07-31-2019 End: 07-31-2019 Office Visit 07/31/2019 Office Visit Family Medicine Kareem Hartley MD [address] [place] [phone] [facility] Start: 02-14-2019 End: 02-14-2019 Office Visit 02/14/2019 Office Visit Family Medicine Kareem Hartley MD [address] [place] [phone] [facility] Start: 01-03-2019 End: 01-03-2019 Office Visit 01/03/2019 Office Visit Family Medicine Kareem Hartley MD [address] [place] [phone] [facility] Start: 01-01-2019 Influenza vaccination Flu vaccine (# 1) [place], [place] Start: 09-28-2018 Annual Wellness Visi t (AWV) Annual Wellness Visit (AWV) [place], [place] Start: 2018 Screening for malign ant neoplasm of breast Mammogram Screening [facility] Start: 01-26-2017 Creatinine monitoring Creatinine mon itoring [place] Start: 01-26-2017 Potassium monitoring Potassium monit oring [place] Start: 2016 Screening for malign ant neoplasm of colon [facility] Start: 08-13-2013 Screening for malign ant neoplasm of cervix Cervical Cancer Screening [facility] Start: 2011 Diabetes screen Diabetes screen [place], [place] Start: 2011 Lipid screen Lipid screen [place], [place] Start: 2011 Screening for malign ant neoplasm of breast Breast cancer screen [facility] Start: 2006 Diabetes screen Diabetes screen [facility] Start: 2001 Screening for malign ant neoplasm of cervix [facility] Start: 1992 Cervical cancer screen Cervical canc er screen [place], [place] Start: 1992 Screening for malign ant neoplasm of cervix [facility] Start: 1990 DTaP/Tdap/Td vaccine (1 - Tdap) DTaP/Tdap/Td vaccine (1 - Tdap) [facility] Start: 1990 Hepatitis B vaccine (1 of 3 - 19+ 3-dose series) Hepatitis B vaccine (1 of 3 - 19+ 3-dose series) [facility] Start: 1990 Pneumococcal Vaccine : 50+ (1 of 2 - PCV) Pneumococcal Vaccine: 50+ (1 of 2 - PCV) [facility] Start: 1989 Hepatitis C screening [facility] Start: 1989 HIV screening HIV Screening [facility] Start: 1986 HIV screen HIV screen [place], [place] Start: 1986 HIV screening HIV screen [facility] Start: 1983 COVID-19 Vaccine (1) COVID-19 Vaccin e (1) [facility] Work Phone: Start: 1983 [facility] Start: 1977 Pneumococcal 0-64 ye ars Vaccine (1 - PCV) Pneumococcal 0-64 years Vaccine (1 - PCV) [facility] Start: 1977 Pneumococcal 0-64 ye ars Vaccine (1 of 1 - PPSV23) Pneumococcal 0-64 years Vaccine (1 of 1 - PPSV23) [place], [place] Start: 1977 Pneumococcal 0-64 ye ars Vaccine (1 of 2 - PCV) Pneumococcal 0-64 years Vaccine (1 of 2 - PCV) [facility] Start: 1977 Pneumococcal 0-64 ye ars Vaccine (1 of 2 - PPSV23) Pneumococcal 0-64 years Vaccine (1 of 2 - PPSV23) [facility] Work Phone: Start: 1977 Pneumococcal vaccination Pneumococcal Vaccine (1 of 2 - PCV) [facility] Start: 1976 COVID-19 Vaccine (1) COVID-19 Vaccin e (1) [facility] Start: 1971 COVID-19 Vaccine (#1) COVID-19 Vacci ne (#1) [facility] Start: 1971 Hepatitis C screening Hepatitis C or andre [facility] Work Phone: Bacteria identified in Wound by Culture BACTERIAL CULTURE AND GRAM STAIN, ABSCESS AND WOUND (AEROBIC CULTURE) Microbiology Routine Sore in nose Ordered: 11/11/2024 [facility] Work Phone: Comment on above: Ordered: 11/11/2024 End: 01-09-2022 LINDY ELICIA DIGITAL SCREEN BILATERAL LINDY ELICIA DIGITAL SCREEN BILATERAL Imaging Routine Encounter for screening mammogram for malignant neoplasm of breast 1 Occurrences starting 01/09/2022 until 01/09/2022 [facility] Work Phone: Comment on above: 1 Occurrences starti ng 01/09/2022 until 01/09/2022 End: 08-07-2022 LINDY ELICIA DIGITAL SCREEN BILATERAL LINDY ELICIA DIGITAL SCREEN BILATERAL Imaging Routine Encounter for screening mammogram for malignant neoplasm of breast 1 Occurrences starting 08/07/2022 until 08/07/2022 [facility] Work Phone: Comment on above: 1 Occurrences starti ng 08/07/2022 until 08/07/2022 Patient Education [facility] Work Phone: Immunizations Immunization Date Immunization Notes Care Provider Diana valdovinos 02-07-2018 influenza virus vacc ine, unspecified formulation Nina Peralta APRN.[facility] Work Phone: [facility] Payers Date Payer Category Payer Self-pay 2024 Unknown [id number] 2024 Unknown [id number] 2023 Unknown [id number] 2022 Medicaid [id number] 2020 Unknown [id number] [id number] .[id number] 2020 Unknown [id number] 1.2.840.484726.1.13.239.2.7 .3.138108.315 2018 Medicare UHC MEDICARE [employer]I [employer] DUAL COMPLETE xxxxxxxxx 2018-Present xxxxxxxxx [id number] .[id number] 1971 Unknown [id number] 2.16.840.1.334724.3.579.2.2 04 1971 Unknown [id number] 2.16.840.1.859211.3.579.2.2 04 1971 Unknown [id number] 2.16.840.1.803673.3.579.2.2 04 1971 Unknown [id number] 2.16.840.1.532225.3.579.2.2 04 1971 Unknown [id number] 2.16.840.1.513650.3.579.2.2 04 1971 Unknown [id number] 2.16.840.1.293725.3.579.2.6 1971 Unknown [id number] 2.16.840.1.402976.3.579.2.6 1971 Unknown [id number] 2.16.840.1.151701.3.579.2.6 1971 Unknown [id number] 2.16.840.1.417102.3.579.2.6 1971 Unknown [id number] 2.16.840.1.327405.3.579.2.6 27 1971 Unknown [id number] 2.16.840.1.866715.3.579.2.6 1971 Unknown [id number] 2.16.840.1.172414.3.579.2.6 27 Unknown [id number] 2.16.840.1.370693.3.579.2.4 62 Unknown [id number] 2.16.840.1.251257.3.579.2.4 62 Unknown [id number] 2.16.840.1.956224.3.579.2.4 62 Unknown [id number] 2.16.840.1.801260.3.579.2.4 62 Unknown [id number] 2.16.840.1.875504.3.579.2.4 62 Unknown [id number] 2.16.840.1.812878.3.579.2.4 62 Unknown [id number] 2.16.840.1.867803.3.579.2.4 62 Unknown [id number] 2.16.840.1.236806.3.579.2.4 62 Social History Date Type Detail Facility Start: 01-03-2019 End: 03-02-2024 Tobacco smoking status NHIS Current every day smoker [place], [place] Start: 07-15-1983 History of tobacco use Cigarette Smo ker [place] Start: 01-03-2019 End: 03-28-2024 Cigarettes smoked current (pack per day) - Reported [place] Start: 01-03-2019 End: 03-28-2024 Alcohol intake Yes [place] Start: 1970 Sex Assigned At Not on file [place] Start: 07-28-2019 End: 03-02-2024 Alcohol intake Current drinker of alcohol (finding) [place] Start: 10-18-2020 End: 03-02-2024 Tobacco use and exposure Never used [facility] Start: 08-15-2021 End: 03-14-2022 Exposure to SARS-CoV-2 (event) Not sure [facility] [employer] Start: 02-27-2021 End: 04-01-2022 History SDOH Alcohol Frequency 1 [facility] [employer] Work Phone: Start: 02-27-2021 History SDOH Stress 2 [facility] Work Phone: Start: 04-01-2022 History SDOH Stress 5 [employer] Work Phone: Start: 07-06-2022 History SDOH Housing Homeless Last Year 3 [email or web address] Work Phone: How often to you hav e a drink containing alcohol? Never [email or web address] Average Number of Drinks Not on file [email or web address] Do you feel stress - tense, restless, nervous, or anxious, or unable to sleep at night because your mind is troubled all the time - these days [OSQ] Very much [email or web address] Start: 06-17-2017 Alcohol Comment rarely [facility] Start: 03-10-2024 Tobacco smoking status Heavy t obacco smoker (finding) [facility] Start: 1970 Sex Assigned At Female A [facility] Sexual Orientation [facility] Sex Female (finding) [facility] Start: 05-22-2019 Lives Lives [facility] Start: 10-31-2024 Tobacco smoking status Ex-smoker (fi nding) [facility] Comment on above: Patient stated they stopped smoking, [employer] Mental Status Date Assessment Result Facility 11-15-2024 Cognitive function Level Of Cons ciousness Awake;Alert;Appropriate;Follow s Commands [facility] Work Phone: Clinical Notes 10-18-2020 to 11-27-2024 Note Date & Type Note Facility 11-27-2024 Note Exam Date Time Procedure Performing Provider Status 11/27/24 12:30 PM XR Spine Lumbosacral 2 or 3 Views KOBI ALLEN MD; Auth (Verified) [id number] ORIGINAL EXAMINATION: 3 XRAY VIEWS OF THE LUMBAR SPINE 11/27/2024 12:34 pm COMPARISON: None. HISTORY: ORDERING SYSTEM PROVIDED HISTORY: Reason for Exam: Chronic low back pain with sciatica No known injury FINDINGS: There are 5 lumbar vertebrae. The lumbar spine alignment is normal. Vertebral bodies are normal in height with no fracture or osseous lesion. There is moderate narrowing of the L5-S1 intervertebral disc space with moderate degenerative spur formation. Other disc spaces are maintained. Posterior elements are intact. Facet joints appear normal. Sacroiliac joints have normal alignment. IMPRESSION: Moderate degenerative disc disease at L5-S1. Interpreted by: Kobi Allen MD Preliminary Report By: Kobi Allen MD Electronically signed By Kobi Allen MD Dictated Date: 11/28/2024 3:09:31 AM Prelim Date: 11/28/2024 3:10:50 AM Sign Date: 11/28/2024 3:10:50 AM Ordering Provider: [facility]07-28-2025 Note* Exam Date Time Procedure Performing Provider Status 11/27/24 12:30 PM XR Knee 1 or 2 Views Right Jorge Luis ALLEN MD; Auth (Verified) [id number] ORIGINAL EXAMINATION: TWO XRAY VIEWS OF THE RIGHT KNEE 11/27/2024 12:35 pm COMPARISON: None. HISTORY: ORDERING SYSTEM PROVIDED HISTORY: Reason for Exam: Right knee stiffness (chronic) decreased ROM FINDINGS: There is no fracture or dislocation of the right knee. No osseous lesion is present. The tibiofemoral and patellofemoral joint spaces are normal. Articular surfaces have normal contour. There is no joint effusion. No periarticular calcifications are present. There is no evidence of soft tissue abnormality. IMPRESSION: Normal right knee radiographs. Interpreted by: Kobi Allen MD Preliminary Report By: Kobi Allen MD Electronically signed By Kobi Allen MD Dictated Date: 11/28/2024 3:11:00 AM Prelim Date: 11/28/2024 3:12:07 AM Sign Date: 11/28/2024 3:12:07 AM Ordering Provider: [facility]07-22-2025 Telephone encounter Note* Telephone Encounter - Yosvany Lee PA - 11/21/2024 4:09 PM EDT Called patient as she called in to let us know she had a reaction to Bactrim. She states she was also on doxycycline at the same time. She did go to the emergency room for her reaction and was told to stop taking the Bactrim. She states the nose sore that she was seen for is now resolved. Advise she does not need further antibiotics at this time since her symptoms are now resolved if no sore returns follow-up with PCP [facility] Work Phone: [phone]) 255-595407-22-2025 Miscellaneous Notes* Telephone Encounter - Yosvany Lee PA - 11/21/2024 4:09 PM EDT Called patient as she called in to let us know she had a reaction to Bactrim. She states she was also on doxycycline at the same time. She did go to the emergency room for her reaction and was told to stop taking the Bactrim. She states the nose sore that she was seen for is now resolved. Advise she does not need further antibiotics at this time since her symptoms are now resolved if no sore returns follow-up with PCP [facility] Telephone encounter Note * Telephone Encounter - Kristi Aguirre RN - 11/21/2024 10:07 AM EDT Patient calls and states that she started breaking in hives and itching bad after taking 2 doses ofmedication. Pharmacy told patient to call office to let them know she had reaction. Pharmacist had said something that provider may want to prescribe a nose spray. Patient works 3rd shift so she is going to sleep soon. Patient states that a voicemail message can be left at [phone]. Answer Assessment - Initial Assessment Questions 1. NAME of MEDICINE: Bactrim 2. QUESTION: Patient states that she started breaking in hives and itching after taking 2 pills of Bactrim 3. PRESCRIBER: Shawn Ling 4. SYMPTOMS: Hives and Itching; Severe Protocols used: Medication Question Ocae-HOVUR-IS Please review and advise, Kristi Aguirre RN [facility]07-22-2025 Miscellaneous Notes* Telephone Encounter - Kristi Aguirre RN - 11/21/2024 10:07 AM EDT Patient calls and states that she started breaking in hives and itching bad after taking 2 doses ofmedication. Pharmacy told patient to call office to let them know she had reaction. Pharmacist had said something that provider may want to prescribe a nose spray. Patient works 3rd shift so she is going to sleep soon. Patient states that a voicemail message can be left at [phone]. Answer Assessment - Initial Assessment Questions 1. NAME of MEDICINE: Bactrim 2. QUESTION: Patient states that she started breaking in hives and itching after taking 2 pills of Bactrim 3. PRESCRIBER: Shawn Ling 4. SYMPTOMS: Hives and Itching; Severe Protocols used: Medication Question Ipnv-CJPOL-EX Please review and adviseKristi RN documented in [facility]07-[facility]-2025 Discharge summary [facility] Medical Records Department [address] [place] [id number] Emergency Department Summary 11/20/24 MR#: [id number] Acct: [id number] Name: MARCY POSEY Rep #:[id number] : 1970 54 From: Ace Fox MD PCP: YONATAN Odom Status:PRE ER Location: ED HPI History of Present Illness Chief Complaint: Allergic Reaction Detail of Chief Complaint: Possible allergic reaction and sciatica . Informant: patient Onset/Context/Timing Onset: Today (Bumps on her face) and Weeks (Reported sciatic pain and low back pain) Context: Sudden Onset Timing: Continuous Quality: Patient with small whiteheads over her face. The back pain is a chronic is Location: Face and low back Current Severity: Not applicable Maximum Severity: Not applicable Worsened by: back pain is worse with movement Relieved by: Rest Associated Symptoms Associated Symptoms: No bowel or bladder dysfunction. No radicular pain. She reports foot drop Narrative Narrative: Patient is a 54-year-old woman. She has history of GERD, prostatitis, depression and anxiety and BMI greater than 40. She presents because of white bumps onher face which she believes is due to reaction to the antibiotic she was prescribed. Patient denies itching. Patient denies swelling of her lips, tongue or throat. She denies trouble swallowing. She has had no change in her voice. She has no ca rdiac or respiratory symptoms. She denies wheezing. Low back pain noted on the right side. There is no radicular pain. She reportsdragging her foot today. She also has numbness in her foot and is seen by Dr. Gustafson. She denies history of diabetes, peripheral arterial disease or neuropathy. There is no history of trauma. She has not noted a rash. She doesnot have symptoms of claudication. Prior similar symptoms: Yes (Yes to back pain note to facial rash) Recent Illness/Hospitalization: Yes (Seen in ED for parotitis.) [facility] Medical History Arthritis Pancreatitis GERD (gastroesophageal reflux disease) Home Medications ?Medication ?Instructions ?Recorded ?Last Taken ?Type omeprazole 40 mg capsule,delayed 40 mg PO DAILY Unknown History release celecoxib 200 mg capsule 200 mg PO BID 10/27/24 Unkno wn History duloxetine 60 mg capsule,delayed 60 mg PO DAILY Unknown History release furosemide 20 mg tablet 20 mg PO DAILY PRN swelling 10/27/24 Unknown History prednisone 20 mg tablet 40 mg (2 x 20 mg) PO DAILY 6 days 10/27/24 Unknown Rx #12 tabs doxycycline monohydrate 100 mg 100 mg PO BID #14 CAPSU LES 11/15/24 Unknown Rx capsule Allergy/AdvReac Type Severity Reaction Status Date / Time amoxicillin Allergy Unknown Verified 11/20/24 10:24 azithromycin Allergy Upset Verified 11/20/24 10:24 Stomach cephalexin (From Keflex) Allergy Hives Verified 11/20/24 10:24 cephalexin monohydrate (From Allergy Swelling Verified 11/20/24 10:24 Keflex) erythromycin base Allergy Unknown Verified 11/20/24 10:24 ibuprofen AdvReac Upset Verified 11/20/24 10:24 Stomach tramadol AdvReac Nausea/Vom/ Verified 11/20/24 10:24 Diarrhea Surgical History History of 3 sections History of vocal cord polypectomy Hx of cholecystectomy Social History housing: house Smoking Status: Current every day smoker tobacco type: e-cigarettes ROS ROS ED Constitutional Constitutional ED: Denies chills, fever(s), subjective or sweats Eyes Eyes: Denies blurry vision or change in vision ENT ENT ED: Denies ear pain, rhinorrhea or sore throat Cardiovascular Cardiovascular: Denies chest pain or palpitations Respiratory/Chest Respiratory/Chest: Denies cough or dyspnea Gastrointestinal Gastrointestinal: Denies nausea Musculoskeletal Musculoskeletal: Reports back pain Integumentary Reports rash Neurologic Neurologic: Denies headache(s) or paresthesias Allergic/Immunologic Allergic/Immunologic ED: Denies mouth swelling, tongue swelling or urticaria EXAM Physical Exam Const Vital Signs: 11/20/24 10:21 Temperature 99.4 F H Temperature Source Oral Pulse Rate 72 Respiratory Rate 18 Blood Pressure 114/87 H Blood Pressure Mean 96 Pulse Ox 98 Oxygen Delivery Method Room Air Positive well nourished and well developed General Appearance ED: well developed and NAD HEENT Reports moist mucous membranes HEENT Narrative: Patient has multiple small whiteheads on her face. She states she has not been sweating profusely recently. She was seen for parotid gland swelling on the right. This has improved. She no longer complains of pain. There is no evidence of angioedema. Trachea is midline. There is no inspiratory expiratorystridor. Eyes PERRL and EOMs intact bilaterally General Eye ED: Negative for pale conjunctiva or scleral icterus Neck no lymphadenopathy, supple and no JVD Neck Narrative: Also documented under the H EENT portion of the EMR Resp normal respiratory effort and clear to auscultation bilaterally Cardio regular rate, regular rhythm, S1 normal heart sound, S2 normal heart sound and no murmurs GI normal to inspection, nondistended, normoactive bowel sounds and non-distended; Negative for hepatosplenomegaly Back/Spine no CVA tenderness Thoracic Spine / Upper Back: Negative for thoracic spinal tenderness Lumbar Spine / Lower Back: lumbar spinal tenderness Extremity normal to inspection General Extremety ED: Negative for edema or tenderness General Extremity: Negative for edema Neuro oriented x3, CN's II-XII intact bilaterally and no sensory deficits noted Neuro Narrative: Pelvic telemetry and ankle reflex are 1+. EHLs intact. Normal sensation L3-S1 dermatome. DP pulses palpable bilateral. Gait was observed. She has no foot drop. Able to walk on heels and toes. Able toperform 1 legged squat right andleft. Having her bend to the right and left and flex causes her discomfort on the right side. Having her stand on her left foot causes her pain right low back. Standing on her right foot causes no discomfort. Motor Exam: strength 5/5 throughout Psych mental status grossly normal Skin No no rashes or lesions noted, no wounds and skin turgor normal Skin Narrative: Previously described under the HEENT portion of the medical exam General Skin Exam: elasticity normal MDM MDM MDM Narrative Medical decision making narrative: With regards to the rash this is not allergic. This has to do with hygiene. Sores or back pain she does not have sciatica. This is musculoskeletal. She cristino NSAID. She was instructed to take her NSAID and ice. Prior ER and outpatient records were reviewed. There is no change since visit last week. Discharge Plan Triage Chief Complaint: Allergic Reaction Other Complaint: Back ED Provider: Ace Fox Dx/Rx/DC Orders Clinical Impression: [place], GERD (gastroesophageal reflux disease), Myofascial pain syndrome of lumbar spine Instructions: Adult Acne, ED Myofascial Pain Syndrome Prescriptions: No Action omeprazole 40 MG capsule,delayed release(DR/EC) 40 mg PO DAILY celecoxib 200 mg capsule 200 mg PO BID furosemide 20 mg tablet 20 mg PO DAILY PRN (Reason: swelling) duloxetine 60 mg capsule,delayed release(DR/EC) 60 mg PO DAILY prednisone 20 mg tablet 40 mg PO DAILY 6 Days Qty: 12 0RF doxycycline monohydrate 100 mg capsule 100 mg PO BID Qty: 14 0RF Primary Care Provider: Kia Chappell NP Referrals: Kia Chappell NP, [facility] [Primary Care Provider] - 1 Week if not improving Activity Restrictions/Additional Instructions: 1. Recommend taking your anti-inflammatory for your back pain. If you have loss of bowel control unable to urinate or are dragging your right lower extremity return to the emergency department otherwise follow-up with your providers. Print Language: Turkmen Disposition Disposition: Home, Self Care What to do if you have Problems For any increased pain, shortness of breath, bleeding, nausea or vomiting, chestpain, or any unexpected problems, contact your Primary Care Provider. Call [facility] ([phone]) or report tothe closest Emergency Room. Call 911 if necessary. 11/20/24 1058 Cosigner Signature (if applicable): CC: YONATAN Chappell ~ Signed [facility]07-16-2025 Discharge summary [facility] Medical Records Department [address] [place] [address] Emergency Department Summary 11/15/24 MR#: [id number] Acct: [id number] Name: MARCY POSEY Rep #:[id number] : 1970 54 From: Ace Fox MD PCP: YONATAN Odom Status:REG ER Location: ED HPI History of Present Illness Chief Complaint: Other, Pain/Inj Detail of Chief Complaint: Patient has numerous complaints. Main complaint is bump right side of her Informant: patient Onset/Context/Timing Onset: Yesterday Context: Sudden Onset Timing: Continuous Quality: Pain and swelling anterior and inferior right ear Location: Right parotid gland and Stensen's duct Current Severity: Mild Maximum Severity: Moderate Worsened by: Nothing Relieved by: Nothing Associated Symptoms Associated Symptoms: Nothing/none Narrative Narrative: Patient is a 54-year-old woman with history of GERD, depression anxiety who presents because of swelling right side of her face and bump on the inside of her mouth. She had other complaints listed intriage but that is not the reasonshe presented. She states she is seen other practitioners for her other complaints. She denies fever, chills night sweats. She denies inability or difficulty opening closing her mouth. She denies change in voice. She denies difficulty swallowing. She has seen Dr. Wagner Martinez in [facility]. She has multiple antibiotic allergies. Based on her antibiotic allergies we will treat with do xycycline. Patient also was concerned because of bumps on her face. Prior similar symptoms: No Recent Illness/Hospitalization: No PFSH PFSH Medical History Arthritis Pancreatitis GERD (gastroesophageal reflux disease) Home Medications ?Medication ?Instructions ?Recorded ?Last Taken ?Type omeprazole 40 mg capsule,delayed 40 mg PO DAILY Unknown History release celecoxib 200 mg capsule 200 mg PO BID 10/27/24 Unkno wn History duloxetine 60 mg capsule,delayed 60 mg PO DAILY Unknown History release furosemide 20 mg tablet 20 mg PO DAILY PRN swelling 10/27/24 Unknown History prednisone 20 mg tablet 40 mg (2 x 20 mg) PO DAILY 6 days 10/27/24 Unknown Rx #12 tabs doxycycline monohydrate 100 mg 100 mg PO BID #14 CAPSU LES 11/15/24 Unknown Rx capsule Allergy/AdvReac Type Severity Reaction Status Date / Time amoxicillin Allergy Unknown Verified 11/15/24 07:13 azithromycin Allergy Upset Verified 11/15/24 07:13 Stomach cephalexin (From Keflex) Allergy Hives Verified 11/15/24 07:13 cephalexin monohydrate (From Allergy Swelling Verified 11/15/24 07:13 Keflex) erythromycin base Allergy Unknown Verified 11/15/24 07:13 ibuprofen AdvReac Upset Verified 11/15/24 07:13 Stomach tramadol AdvReac Nausea/Vom/ Verified 11/15/24 07:13 Diarrhea Surgical History History of 3 sections History of vocal cord polypectomy Hx of cholecystectomy Social History housing: house Smoking Status: Current every day smoker tobacco type: cigarettes and e-cigarettes ROS ROS ED Constitutional Constitutional ED: Denies chills, fever(s), subjective, sweats or weight loss Eyes Eyes: Denies blurry vision, change in vision or diplopia ENT ENT ED: Reports other Details: Detailed HPI narrative ; Denies ear pain, rhinorrhea or sore throat Cardiovascular Cardiovascular: Denies palpitations Respiratory/Chest Respiratory/Chest: Denies cough or dyspnea Gastrointestinal Gastrointestinal: Denies nausea or vomiting Integumentary Reports rash and other Details: Patient has folliculitis/heat rash on her face and neck. Neurologic Neurologic: Denies headache(s) or paresthesias Hematologic/Lymphatic Hematologic/Lymphatic: Reports systems reviewed and no addt'l complaints, exceptas documented EXAM Physical Exam Const Vital Signs: 11/15/24 07:08 Temperature 97.7 F L Temperature Source Temporal Pulse Rate 79 Respiratory Rate 16 Blood Pressure 134/97 H Blood Pressure Mean 109 Pulse Ox 97 Oxygen Delivery Method Room Air Positive well nourished and well developed General Appearance ED: well developed and NAD; Negative for cyanotic or diaphoretic HEENT Reports moist mucous membranes HEENT Narrative: Head is atraumatic and normocephalic. Ears are normal. TMs are normal. There is no preauricular lymphadenopathy. Patient has swelling of her parotid gland. Milking of the parotid gland elicits discharge from Stensen's duct. Posterior pharynx without erythema or exudate. Uvula midline. No deviation tongue with protrusion. There is no dysphonia. There is no drooling. Eyes PERRL and EOMs intact bilaterally General Eye ED: Negative for pale conjunctiva or scleral icterus Neck no lymphadenopathy, supple and no JVD Neck Narrative: Trachea is midline. Cardio regular rate and regular rhythm Extremity normal to inspection Neuro oriented x3 and CN's II-XII intact bilaterally Sensorium / Orientation: alert Psych mental status grossly normal Skin Skin Narrative: Heat rash face/folliculitis. MDM MDM MDM Narrative Medical decision making narrative: Patient presents with facial swelling. Patient's exam is consistent with acute parotid inflammation. This may be due to an obstructing stone. Since patient has no fever and vital signs are unremarkable there is no indication for any laboratory testing. Based on her numerous antibiotic allergies history of doxycycline. She was instructed to suck on lemon drops. She was also instructed to contact Dr. Valderrama's office for follow-up since she has seen him in the past. History & Record Review Additional record(s) reviewed:: Prior ED visit (October 2024 for left elbow pain. April 2020 for forearm edema. May 2019 for ear pain and sinus symptoms.) Treatment and Re-Evaluation :: Patient received her first dose of doxycycline in the emergency department. Prescription for doxycycline was sent to pharmacy. Discharge Plan Triage Chief Complaint: Other, Pain/Inj ED Provider: Ace Fox Dx/Rx/DC Orders Clinical Impression: Acute parotitis, Chronic GERD, BMI greater than 30 Instructions: ED Salivary Gland Infection Prescriptions: New doxycycline monohydrate 100 mg capsule 100 mg PO BID Qty: 14 0RF No Action omeprazole 40 MG capsule,delayed release(DR/EC) 40 mg PO DAILY celecoxib 200 mg capsule 200 mg PO BID furosemide 20 mg tablet 20 mg PO DAILY PRN (Reason: swelling) duloxetine 60 mg capsule,delayed release(DR/EC) 60 mg PO DAILY prednisone 20 mg tablet 40 mg PO DAILY 6 Days Qty: 12 0RF Primary Care Provider: Care Physician,No Primary Referrals: Wagner Martinez MD [Med Staff - Active Staff] - 3-5 Days Care Physician,No Primary [Primary Care Provider] - Activity Restrictions/Additional Instructions: 1. Suck on lemon drops throughout the day. 2. Follow-up with Dr. Wagner Martinez who you have seen in the past. 3. If you develop a temperature greater than 100, shaking chills or significantincrease in facial swelling return to the emergency department Print Language: Turkmen Disposition Disposition: Home, Self Care What to do if you have Problems For any increased pain, shortness of breath, bleeding, nausea or vomiting, chestpain, or any unexpected problems, contact your Primary Care Provider. Call [facility] ([phone]) or report tothe closest Emergency Room. Call 911 if necessary. 11/15/24 0736 Cosigner Signature (if applicable): CC: YONATAN Chappell ~ Signed [facility]07-13-2025 Telephone encounter Note* Telephone Encounter - Sophia Bernal MA - 11/12/2024 10:09 AM EDT Patient given results and verbalized understanding of instructions given. Sophia Bernal MA [facility]07-13-2025 Miscellaneous Notes* Telephone Encounter - Sophia Bernal MA - 11/12/2024 10:09 AM EDT Patient given results and verbalized understanding of instructions given. Sophia Bernal MA * Telephone Encounter - Yosvany Lee PA - 11/12/2024 9:01 AM EDT Please contact patient let her know herpes swab was negative [facility] Telephone encounter Note * Telephone Encounter - Yosvany Lee PA - 11/12/2024 9:01 AM EDT Please contact patient let her know herpes swab was negative [facility] Work Phone: 1(598) 627-454107-12-2025 NoteHNO ID: [id number] Author: WAGNER MAN MD Service: ? Author Type: Physician Type: Progress Notes Filed: 11/11/2024 13:43 Note Text: URGENT CARE KATHARINE Posey is a 54 year old female. Patient presents with: right side facial swelling: X 1 day and sore in nose x 1 week Patient presents with concern for swelling along the right jaw she noticed today. Is not tender but does feel tight at times. She does have a pimple near the area which she tried to pick. Denies any fever, toothache, sore throat, earache, or cough. She has had a crusty lesion in the left nostril. She notes it initially began as a pimple. She was able to express some clear fluid earlier in the week. She has never had cold sores or prior lesions in the area of the left nostril. Denies any history of MRSA. She has been treating the lesion with Bactroban. Review of Systems Objective BP 132/72 Pulse 64 Temp 36.9 ?C (98.5 ?F) (Tympanic) Resp 18 Wt 116 kg (255 lb 11.7 oz) LMP 02/18/2016 SpO2 98% BMI 38.32 kg/m? Physical Exam Constitutional: General: She is not in acute distress. Appearance: She is not ill-appearing. HENT: Head: Comments: Mild fullness without tenderness at the right angle of the jaw. There is a slightly macerated papule at the posterior inferior aspect of the swelling. Right Ear: Tympanic membrane and ear canal normal. Left Ear: Tympanic membrane and ear canal normal. Nose: No congestion or rhinorrhea. Comments: 5 mm slightly raised crusted lesion at the base of the left nostril and septum. Mouth/Throat: Mouth: Mucous membranes are moist. Pharynx: No posterior oropharyngeal erythema. Comments: No tenderness with palpation of the teeth. Lymphadenopathy: Cervical: No cervical adenopathy. Neurological: Mental Status: She is alert. {ASSESSMENT/PLAN: 1. Sore in nose - ICD9: 478.19, ICD10: J34.89 (primary diagnosis) Assess for HSV versus staph in the left nostril. - BACTERIAL CULTURE AND GRAM STAIN, ABSCESS AND WOUND (AEROBIC CULTURE) - HERPES SIMPLEX VIRUS (HSV-1 AND HSV-2) AND VARICELLA ZOSTER VIRUS (VZV), NAAT, LESION SWAB The lesion is in the healing phase and no additional antibiotic or antiviral medication is needed based on culture; may be added if the lesion worsens. 2. Swelling of right side of face - ICD9: 784.2, ICD10: R22.0 Local inflammation secondary to superficial pustule behind the jaw. Wagner Man MD Differential Diagnoses - Staph pustules is more likely for the following reason(s): suggested by HANDP - HSV is more likely for the following reason(s): clear fluid drainage - Parotitis is less likely for the following reason(s): Exam not suggestive - Abscess is less likely for the following reason(s): Exam not suggestive Additional Tests or Interventions The following medication(s) were considered but not ordered: Anti-staph antibiotic such as Bactrim or doxycycline-lesions appear to be in the healing stage. Beyond the therapeutic window for HSV antiviral. [facility] History of Present illness Narrative* Wagner Man MD - 11/11/2024 12:50 PM EDT Images from the original note were not included. URGENT CARE KATHARINE Marzena Posey is a 54 year old female. Patient presents with: right side facial swelling: X 1 day and sore in nose x 1 week Patient presents with concern for swelling along the right jaw she noticed today. Is not tender butdoes feel tight at times. She does have a pimple near the area which she tried to pick. Denies any fever, toothache, sore throat, earache, or cough. She has had a crusty lesion in the left nostril. She notes it initially began as a pimple. She was able to express some clear fluid earlier in the week. She has never had cold sores or prior lesions in the area of the left nostril. Denies any history of MRSA. She has been treating the lesion with Bactroban. Review of Systems Objective BP 132/72 Pulse 64 Temp 36.9 C (98.5 F) (Tympanic) Resp 18 Wt 116 kg (255 lb 11.7 oz) LMP1 SpO2 98% BMI 38.32 kg/m Physical Exam Constitutional: General: She is not in acute distress. Appearance: She is not ill-appearing. HENT: Head: Comments: Mild fullness without tenderness at the right angle of the jaw. There is a slightly macerated papule at the posterior inferior aspect of the swelling. Right Ear: Tympanic membrane and ear canal normal. Left Ear: Tympanic membrane and ear canal normal. Nose: No congestion or rhinorrhea. Comments: 5 mm slightly raised crusted lesion at the base of the left nostril and septum. Mouth/Throat: Mouth: Mucous membranes are moist. Pharynx: No posterior oropharyngeal erythema. Comments: No tenderness with palpation of the teeth. Lymphadenopathy: Cervical: No cervical adenopathy. Neurological: Mental Status: She is alert. {ASSESSMENT/PLAN: 1. Sore in nose - ICD9: 478.19, ICD10: J34.89 (primary diagnosis) Assess for HSV versus staph in the left nostril. - BACTERIAL CULTURE AND GRAM STAIN, ABSCESS AND WOUND (AEROBIC CULTURE) - HERPES SIMPLEX VIRUS (HSV-1 & HSV-2) AND VARICELLA ZOSTER VIRUS (VZV), NAAT, LESION SWAB The lesion is in the healing phase and no additional antibiotic or antiviral medication is needed based on culture; may be added if the lesion worsens. 2. Swelling of right side of face - ICD9: 784.2, ICD10: R22.0 Local inflammation secondary to superficial pustule behind the jaw. Wagner Man MD Differential Diagnoses - Staph pustules is more likely for the following reason(s): suggested by H&P - HSV is more likely for the following reason(s): clear fluid drainage - Parotitis is less likely for the following reason(s): Exam not suggestive - Abscess is less likely for the following reason(s): Exam not suggestive Additional Tests or Interventions The following medication(s) were considered but not ordered: Anti-staph antibiotic such as Bactrim or doxycycline-lesions appear to be in the healing stage. Beyond the therapeutic window for HSV antiviral. Procedures [facility] Discharge summary [facility] Medical Records Department [address] [place] [address] Emergency Department Summary 10/27/24 MR#: [id number] Acct: [id number] Name: MARCY POSEY Rep #:[id number] : 1970 54 From: Sd Desouza MD PCP: Care Physician,No Primary Status :REG ER Location: ED HPI History of Present Illness Chief Complaint: Upper Extremity Injury Informant: patient Narrative Narrative: 54-year-old female presents because of sciatica down my right leg for the pastmonth, feels similar to sciatica she was diagnosed with on the left in the past but that went away, and nontraumatic left elbow pain for the past 2-3 weeks. She states the pain is focused in her elbow but it goes all the way up to her shoulder and all the way down to her wrist. It hurts more to move and is betterto remain still. Has not tried any treatment. She has some numbness on the bottom of her right foot at times no bowel or bladder dysfunction or weakness inthe leg. 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 She denies any injury to her back. She denies any s ystemic symptoms such as fevers or chills she is not an IV drug user, she denies any recent dental work or dental abscess. [facility] Medical History Arthritis Pancreatitis GERD (gastroesophageal reflux disease) Home Medications ?Medication ?Instructions ?Recorded ?Last Taken ?Type omeprazole 40 mg capsule,delayed 40 mg PO DAILY Unknown History release celecoxib 200 mg capsule 200 mg PO BID 10/27/24 Unkno wn History duloxetine 60 mg capsule,delayed 60 mg PO DAILY Unknown History release furosemide 20 mg tablet 20 mg PO DAILY PRN swelling 10/27/24 Unknown History prednisone 20 mg tablet 40 mg (2 x 20 mg) PO DAILY 6 days 10/27/24 Unknown Rx #12 tabs Allergy/AdvReac Type Severity Reaction Status Date / Time amoxicillin Allergy Unknown Verified 10/27/24 09:44 azithromycin Allergy Upset Verified 10/27/24 09:44 Stomach cephalexin (From Keflex) Allergy Hives Verified 10/27/24 09:44 cephalexin monohydrate (From Allergy Swelling Verified 10/27/24 09:44 Keflex) erythromycin base Allergy Unknown Verified 10/27/24 09:44 ibuprofen AdvReac Upset Verified 10/27/24 09:44 Stomach tramadol AdvReac Nausea/Vom/ Verified 10/27/24 09:44 Diarrhea Surgical History (Updated 04/10/24 @ 19:[address] Ignacio Pearson, DO) History of 3 sections History of vocal cord polypectomy Hx of cholecystectomy Social History housing: house Smoking Status: Current every day smoker tobacco type: cigarettes and e-cigarettes ROS ROS ED Constitutional Constitutional ED: Denies chills or fever(s) Eyes Eyes: Denies blurry vision or diplopia ENT ENT ED: Denies dental pain, ear pain or sore throat Cardiovascular Cardiovascular: Denies chest pain, palpitations or racing heartbeat Respiratory/Chest Respiratory/Chest: Denies dyspnea Gastrointestinal Gastrointestinal: Denies abdominal pain, constipation, fecal incontinence, nausea or vomiting Genitourinary Genitourinary ED: Reports other Details: no urinary retention ; Denies abdominal discomfort or urinary incontinence Musculoskeletal Musculoskeletal: Reports back pain and extremity pain; Denies neck pain Integumentary Denies Abrasions, rash or wounds Neurologic Neurologic: Reports paresthesias RLE (Bottom of foot at times); Denies weakness EXAM Physical Exam Const Vital Signs: 10/27/24 09:43 Temperature 98 F Temperature Source Temporal Pulse Rate 87 Respiratory Rate 14 Blood Pressure 159/94 H Blood Pressure Mean 115 Pulse Ox 98 Oxygen Delivery Method Room Air Positive well nourished and well developed General Appearance ED: well developed and NAD HEENT Negative for trauma or tenderness Eyes PERRL and EOMs intact bilaterally Neck full ROM and supple Chest Wall inspection of chest normal and palpation of chest normal Resp normal respiratory effort and clear to auscultation bilaterally Cardio regular rate and regular rhythm Cardio Narrative: Soft systolic murmur GI normal to inspection, nondistended, normoactive bowel sounds, soft to palpation and non-tender Back/Spine no CVA tenderness, normal ROM and normal to inspection Back/Spine Narrative: Ipsilateral right straight leg raise causes buttock and back pain but does not reproduce radicular symptoms in the right lower extremity. Negative contralateral straight leg raise and cross straight leg raise. Lumbar Spine / Lower Back: ROM limited and straight leg raise negative bilaterally; Negative for lumbar spinal tenderness or paraspinal muscle tenderness Extremity normal to inspection, full ROM and no pedal edema Extremity Narrative: Tenderness throughout the entire posterior left elbow, including all bony prominences of both epicondyles, olecranon process, and all areas in between which is superficial palpation. The skin is normal-appearing without signs of cellulitis. There is no significantly swollen areas to suggest olecranon bursitis or an abscess. All compartments of the forearm and upper arm are soft and nondistended, nontender. She can move the wrist fully, but complains of pain when she does that in the proximal forearm and elbow. I can bend her from straight down to 90 degrees and with the arm abducted, perform pronation and supination with no pain. Also can range the shoulder without any difficulty. Neuro oriented x3, no focal motor deficits and no sensory deficits noted Sensorium / Orientation: alert Motor Exam: strength 5/5 throughout and clonus absent Deep Tendon Reflexes: Rt Patellar (L4): 2+, Lt Patellar (L4): 2+, Rt Ankle (S1):2+ and Lt Ankle (S1): 2+ Deep Tendon Reflexes Back: Rt Patellar (L4): 2+, Lt Patellar (L4): 2+, Rt Ankle (S1): 2+ and Lt Ankle (S1): 2+ Plantar Reflex: Downgoing: bilateral Psych thought process normal Mood & Affect: anxious Skin no wounds Rashes: no rashes MDM MDM MDM Narrative Medical decision making narrative: Patient states she has appointments for these issues but she could not take the pain anymore. I do not think she has an infected elbow or crystal induced arthritis here, she is really moving it well,and she has diffuse tenderness, which to me is less indicative of an acute fracture but I did obtain three-view x-ray series of the left elbow, on my interpretation it is normal. Radiology inagreement. She was given some Toradol here, she is amenable to trying a prescription for prednisone, I do not think that she has a septic arthritis in the left elbow, her exam is very benign except for some superficial tenderness in a very nonspecific distribution. She is following up with her doctor as ajit nugent. Discharge Plan Triage Chief Complaint: Upper Extremity Injury ED Provider: Sd Desouza Dx/Rx/DC Orders Clinical Impression: Left elbow pain, Acute right-sided low back pain with right-sided sciatica Instructions: ED Arthralgia, ED Sciatica Prescriptions: New prednisone 20 mg tablet 40 mg PO DAILY 6 Days Qty: 12 0RF No Action omeprazole 40 MG capsule,delayed release(DR/EC) 40 mg PO DAILY celecoxib 200 mg capsule 200 mg PO BID furosemide 20 mg tablet 20 mg PO DAILY PRN (Reason: swelling) duloxetine 60 mg capsule,delayed release(DR/EC) 60 mg PO DAILY Primary Care Provider: Care Physician,No Primary Referrals: Doctor,Your [Non-Staff] - Keep [facility] appointment Print Language: Turkmen Disposition Disposition: Home, Self Care What to do if you have Problems For any increased pain, shortness of breath, bleeding, nausea or vomiting, chestpain, or any unexpected problems, contact your Primary Care Provider. Call [facility] ([phone]) or report tothe closest Emergency Room. Call 911 if necessary. 10/27/24 1205 Cosigner Signature (if applicable): CC: No Primary Care Physician ~ Signed [facility]06-27-2025 Radiology Diagnostic study note [facility] Imaging Services [address] [place], [place] [id number] Elbow min 3 Views MR#: [id number] Acct: [id number] Name: MARCY POSEY Rep #: [id number] : 1970 F 54 From: Ashleigh Ledezma MD PCP: Care Physician,No Primary Status: REG ER Study:Elbow min 3 Views Date of Exam: Exam# [id number] Ordering Dr: Felicia Desouza MD PROCEDURE: ELBOW MIN 3 VIEWS 10/27/2024 REASON FOR EXAM: PAIN TECHNIQUE: ELBOW MIN 3 VIEWS COMPARISON: None RAD/Elbow min 3 Views IMPRESSION: No acute fracture or dislocations. [id number]-[id number] degenerative changes. No large joint effusion. Mild soft tissue edema. No radiographic foreign body. Reading Location: [id number] CC: Dr. Sd Desouza MD; No Primary Care Physician ~ Intermission Coordinator: Signed [facility]10-31-2024 Instructions* Patient Instructions* Nina Peralta APRN.[employer]EM[employer] - 03/02/2024 2:59 PM EDT ASSESSMENT/PLAN: 1. Sciatica, right side - ICD9: 724.3, ICD10: M54.31 (primary diagnosis) - Ice for localized tenderness - Prednisone burst- see orders - Patient given instructions use of medications as ordered, intermittent rest, back care exercise program, weight loss, and avoiding sleeping on a heating pad - PREDNISONE 10 MG TABLET - avoid use of NSAIDS while on prednisone, may take tylenol. 2. Bilateral swelling of feet - ICD9: 729.81, ICD10: M79.89 - elevate feet after work - avoid sodium - compressing socks/stockings may be helpful - Follow-up with your PCP in 3-5 days if symptoms have not improved or sooner if symptoms worsen - Discussed red flags and need for immediate medical evaluation if any occur. - Discussed supportive care treatment with fluids, rest and analgesia. - Discussed expected course of illness Nina Peralta APRN.[employer]EMAN SCIATICA: Your exam shows you have sciatica, a condition most often seen in patients with disc disease of thelower back. Sciatica causes pain to radiate from the lower back or buttock area down the leg. It results from pressure on nerve roots coming out of the spine when a disc deteriorates and pushes to one side. Often there is a history of back problems. In most cases sciatica improves greatly with conservative treatment. Most patients with it are completely better after 2-4 weeks of supportive care. Bed rest reduces the disc pressure greatly; sitting is the worst position since the pressure on the disc is over 5 times greater than it is while lying down. You should avoid bending, lifting, and all other activities which make the problem worse. After the pain improves, you may continue with normal activity, taking brief periods for bed rest throughout the day until you are back to normal. Aspirin, ibuprofen, or other anti-inflammatory drugs are often used to help control pain. Muscle relaxants may help by relieving spasm and providing mild sedation. Cold therapy and massage may also give significant relief. Spinal manipulation is not recommended because it can increase the degree ofdisc protrusion. Surgery is reserved for patients that do not improve with conservative treatment, or who have signs of severe nerve root pressure. You should see your doctor for follow up care as recommended. A program for back injury rehabilitation with stretching and strengthening exercises is an important part of management. Please call yourdoctor, a back specialist, or the emergency room right away if you notice increased pain, weakness,or numbness in your legs, or if you have any difficulty with bladder or bowel control. [facility]24 NoteHNO ID: [id number] Author: NINA PERALTA APRN.[employer]EMAN Service: ? Author Type: Nurse Practitioner Type: Progress Notes Filed: 03/02/2024 15:11 Note Text: Subjective HPI Marcy Posey is a 53 year old female who presents with right posterior hip pain that radiates to her right buttock and right upper leg. She has had this for the past 4 days. She denies any injury. She has a history of sciatica but on the left side. 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 She has taken tylenol at home for pain. She has some intermittent tingling of the right leg. She also complains of bilateral feet swelling. States this is chronic. She just bought some compression socks to help with this. Denies chest pain, shortness of breath. She states she does not eat salty foods or add salt to her foods. Works 8 hour shifts at a factory and feet are swollen at the end of her shift. She denies pain in her feet. Review of Systems Constitutional: Negative for chills and fever. Respiratory: Negative for cough and shortness of breath. Cardiovascular: Negative for chest pain. Musculoskeletal: Positive for joint pain. Negative for falls. See HPI Skin: Negative for itching and rash. Neurological: Positive for tingling. Negative for tremors, sensory change, focal weakness and weakness. BP 112/73 Pulse 71 Temp 36.4 ?C (97.6 ?F) Resp 18 Wt 122.9 kg (270 lb 15.1 oz) LMP 02/18/2016 SpO2 98% BMI 40.60 kg/m? PAST MEDICAL HISTORY Diagnosis Date Allergic rhinitis 08/13/2010 Anxiety Asthma childhood Bilateral sciatica 08/13/2010 Dental abscess 03/06/[address] Mitchell GERD (gastroesophageal reflux disease) Heel spur left High risk medications (not anticoagulants) long-term use 03/06/2011 Lower extremity edema Venous insufficiency of leg 06/03/2010 Venous stasis dermatitis 05/15/2010 PAST SURGICAL HISTORY Procedure Laterality Date DELIVERY ONLY 1991 , low transverse DELIVERY ONLY 1992 , low transverse DELIVERY ONLY 1994 , low transverse CHOLECYSTECTOMY Cholecystectomy PAST SURGICAL HISTORY OF polyp removal from larynx ALLERGIES Amoxicillin, Erythromycin, Ibuprofen, Keflex [Cephalexin], and Ultram [Tramadol Hcl] MEDICATIONS predniSONE (DELTASONE) 10 mg tablet Take 4 tabs daily for 3 days, then 2 tabs daily for 3 days, then 1 tab daily for 3 days with food. orphenadrine ER (NORFLEX) 100 mg tablet Take 1 tablet by mouth twice daily. (Patient not taking: Reported on 03/02/2024) indomethacin ER 75 mg CR capsule TAKE 1 CAPSULE BY MOUTH TWICE DAILY WITH MEALS (Patient not taking: Reported on 03/02/2024) albuterol HFA (PROAIR HFA) 90 mcg/actuation inhaler Inhale 2 Puffs as instructed every 4 hours as needed for Wheezing/Shortness of Breath. (Patient not taking: Reported on 03/02/2024) fluticasone (FLONASE) 50 mcg/actuation nasal spray Use 1 Converse in each nostril once daily. (Patient not taking: Reported on 03/02/2024) COMPOUNDED PRESCRIPTION Knee high prescription hose 15-20 mmHg for right and left leg- wearing during the day- remove at night ICD I87.2 (Patient not taking: Reported on 03/02/2024) COMPOUNDED PRESCRIPTION Knee high compression Hose 15-20 mmHg for right and left leg Wear during day, remove at night ICD I87.2 (Patient not taking: Reported on 03/02/2024) furosemide (LASIX) 20 mg tablet Take 1 tablet by mouth once daily. (Patient not taking: Reported on 03/02/2024) Omeprazole 40 mg capsule Take 1 capsule by mouth once daily. (Patient not taking: Reported on 03/02/2024) fexofenadine (SINDY) 180 mg tablet Take 1 tablet by mouth once daily. (Patient not taking: Reported on 03/02/2024) ARIPiprazole (ABILIFY) 5 mg tablet Take 5 mg by mouth once daily. (Patient not taking: Reported on 03/02/2024) citalopram (CELEXA) 20 mg tablet Take 20 mg by mouth once daily. (Patient not taking: Reported on 03/02/2024) FAMILY HISTORY Adopted: Yes Problem Relation Age of Onset Cancer Mother Alcohol/Drug Father Social History Tobacco Use Smoking status: Every Day Current packs/day: 1.50 Average packs/day: 1.5 packs/day for 32.0 years (48.0 ttl pk-yrs) Types: Cigarettes Smokeless tobacco: Never Substance Use Topics Alcohol use: Yes Comment: rarely Drug use: No Comment: stop marijuana in March Objective Physical Exam Vitals and nursing note reviewed. Constitutional: General: She is not in acute distress. Appearance: Normal appearance. She is obese. She is not ill-appearing. Cardiovascular: Rate and Rhythm: Normal rate and regular rhythm. Heart sounds: Normal heart sounds. Pulmonary: Effort: Pulmonary effort is normal. No respiratory distress. Breath sounds: Normal breath sounds. No wheezing or rales. Musculoskeletal: Lumbar back: No swelling, edema, signs of trauma, tenderness or bony tenderness. Positive right strai (more content not included)...[facility]10-[facility] History of Present illness Narrative* Nina Peralta APRN.[employer]CAR FOREMAN - 03/02/2024 2:57 PM EDT Images from the original note were not included. Subjective HPI Marcy Posey is a 53 year old female who presents with right posterior hip pain that radiates to her right buttock and right upper leg. She has had this for the past 4 days. She denies any injury. She has a history of sciatica but on the left side. 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 She has taken tylenol at home for pain. She has some intermittent tingling of the right leg. She also complains of bilateral feet swelling. States this is chronic. She just bought some compression socks to help with this. Denies chest pain, shortness of breath. She states she does not eat salty foods or add salt to her foods. Works 8 hour shifts at a factory and feet are swollen at the end of her shift. She denies pain in her feet. Review of Systems Constitutional: Negative for chills and fever. Respiratory: Negative for cough and shortness of breath. Cardiovascular: Negative for chest pain. Musculoskeletal: Positive for joint pain. Negative for falls. See HPI Skin: Negative for itching and rash. Neurological: Positive for tingling. Negative for tremors, sensory change, focal weakness and weakness. BP 112/73 Pulse 71 Temp 36.4 C (97.6 F) Resp 18 Wt 122.9 kg (270 lb 15.1 oz) LMP 02/18/2016 SpO2 98% BMI 40.60 kg/m PAST MEDICAL HISTORY Diagnosis Date Allergic rhinitis 08/13/2010 Anxiety Asthma childhood Bilateral sciatica 08/13/2010 Dental abscess 03/06/[address] Mitchell GERD (gastroesophageal reflux disease) Heel spur left High risk medications (not anticoagulants) long-term use 03/06/2011 Lower extremity edema Venous insufficiency of leg 06/03/2010 Venous stasis dermatitis 05/15/2010 PAST SURGICAL HISTORY Procedure Laterality Date DELIVERY ONLY 1991 , low transverse DELIVERY ONLY 1992 , low transverse DELIVERY ONLY 1994 , low transverse CHOLECYSTECTOMY Cholecystectomy PAST SURGICAL HISTORY OF polyp removal from larynx ALLERGIES Amoxicillin, Erythromycin, Ibuprofen, Keflex [Cephalexin], and Ultram [Tramadol Hcl] MEDICATIONS predniSONE (DELTASONE) 10 mg tablet Take 4 tabs daily for 3 days, then 2 tabs daily for 3 days, then 1 tab daily for 3 days with food. orphenadrine ER (NORFLEX) 100 mg tablet Take 1 tablet by mouth twice daily. (Patient not taking: Reported on 03/02/2024) indomethacin ER 75 mg CR capsule TAKE 1 CAPSULE BY MOUTH TWICE DAILY WITH MEALS (Patient not taking: Reported on 03/02/2024) albuterol HFA (PROAIR HFA) 90 mcg/actuation inhaler Inhale 2 Puffs as instructed every 4 hours as needed for Wheezing/Shortness of Breath. (Patient not taking: Reported on 03/02/2024) fluticasone (FLONASE) 50 mcg/actuation nasal spray Use 1 Converse in each nostril once daily. (Patientnot taking: Reported on 03/02/2024) COMPOUNDED PRESCRIPTION Knee high prescription hose 15-20 mmHg for right and left leg- wearing during the day- remove at night ICD I87.2 (Patient not taking: Reported on 03/02/2024) COMPOUNDED PRESCRIPTION Knee high compression Hose 15-20 mmHg for right and left leg Wear during day, remove at night ICD I87.2 (Patient not taking: Reported on 03/02/2024) furosemide (LASIX) 20 mg tablet Take 1 tablet by mouth once daily. (Patient not taking: Reported on03/02/2024) Omeprazole 40 mg capsule Take 1 capsule by mouth once daily. (Patient not taking: Reported on 03/02/2024) fexofenadine (SINDY) 180 mg tablet Take 1 tablet by mouth once daily. (Patient not taking: Reported on 03/02/2024) ARIPiprazole (ABILIFY) 5 mg tablet Take 5 mg by mouth once daily. (Patient not taking: Reported on 03/02/2024) citalopram (CELEXA) 20 mg tablet Take 20 mg by mouth once daily. (Patient not taking: Reported on 03/02/2024) FAMILY HISTORY Adopted: Yes Problem Relation Age of Onset Cancer Mother Alcohol/Drug Father Social History Tobacco Use Smoking status: Every Day Current packs/day: 1.50 Average packs/day: 1.5 packs/day for 32.0 years (48.0 ttl pk-yrs) Types: Cigarettes Smokeless tobacco: Never Substance Use Topics Alcohol use: Yes Comment: rarely Drug use: No Comment: stop marijuana in March Objective Physical Exam Vitals and nursing note reviewed. Constitutional: General: She is not in acute distress. Appearance: Normal appearance. She is obese. She is not ill-appearing. Cardiovascular: Rate and Rhythm: Normal rate and regular rhythm. Heart sounds: Normal heart sounds. Pulmonary: Effort: Pulmonary effort is normal. No respiratory distress. Breath sounds: Normal breath sounds. No wheezing or rales. Musculoskeletal: Lumbar back: No swelling, edema, signs of trauma, tenderness or bony tenderness. Positive right straight leg raise test. Negative left straight leg raise test. Back: Skin: General: Skin is warm and dry. Findings: No bruising, erythema or rash. Neurological: Mental Status: She is alert. ASSESSMENT/PLAN: 1. Sciatica, right side - ICD9: 724.3, ICD10: M54.31 (primary diagnosis) - Ice for localized tenderness - Prednisone burst- see orders - Patient given instructions use of medications as ordered, intermittent rest, back care exercise program, weight loss, and avoiding sleeping on a heating pad - PREDNISONE 10 MG TABLET - avoid use of NSAIDS while on prednisone, may take tylenol. 2. Bilateral swelling of feet - ICD9: 729.81, ICD10: M79.89 - elevate feet after work - avoid sodium - compressing socks/stockings may be helpful - Follow-up with your PCP in 3-5 days if symptoms have not improved or sooner if symptoms worsen - Discussed red flags and need for immediate medical evaluation if any occur. - Discussed supportive care treatment with fluids, rest and analgesia. - Discussed expected course of illness Nina Peralta APRN.[employer] [facility] Discharge instructions* Instructions* Oliver Pierre MD - 10/18/2020 It is recommended that you have an upper endoscopy (EGD) for evaluation of your abdominal pain. * Attachments The following attachments cannot be sent through Care Everywhere. * Gastritis (Turkmen) documented in this encounterBrenco Phone: discharge summary Author Sd Desouza [facility] Note Date/Time October 27, 2024 12:0 9pm [facility] Medical Records Department [address] [place] [address] Emergency Department Summary 10/27/24 MR#: [id number] Acct: [id number] Name: MARCY POSEY Rep #:[id number] : 1970 54 From: Sd Desouza MD PCP: Care Physician,No Primary Status :REG ER Location: ED HPI History of Present Illness Chief Complaint: Upper Extremity Injury Informant: patient Narrative Narrative: 54-year-old female presents because of sciatica down my right leg for the pastmonth, feels similar to sciatica she was diagnosed with on the left in the past but that went away, and nontraumatic left elbow pain for the past 2-3 weeks. She states the pain is focused in her elbow but it goes all the way up to her shoulder and all the way down to her wrist. It hurts more to move and is betterto remain still. Has not tried any treatment. She has some numbness on the bottom of her right foot at times no bowel or bladder dysfunction or weakness inthe leg. 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 She denies any injury to her back. She denies any systemic symptoms such as fevers or chills she is not an IV drug user, she denies any recent dental work or dental abscess. [facility] Medical History Arthritis Pancreatitis GERD (gastroesophageal reflux disease) Home Medications ?Medication ?Instructions ?Recorded ?Last Taken ?Type omeprazole 40 mg capsule,delayed 40 mg PO DAILY Unknown History release celecoxib 200 mg capsule 200 mg PO BID 10/27/24 Unkno wn History duloxetine 60 mg capsule,delayed 60 mg PO DAILY Unknown History release furosemide 20 mg tablet 20 mg PO DAILY PRN swelling 10/27/24 Unknown History prednisone 20 mg tablet 40 mg (2 x 20 mg) PO DAILY 6 days 10/27/24 Unknown Rx #12 tabs Allergy/AdvReac Type Severity Reaction Status Date / Time amoxicillin Allergy Unknown Verified 10/27/24 09:44 azithromycin Allergy Upset Verified 10/27/24 09:44 Stomach cephalexin (From Keflex) Allergy Hives Verified 10/27/24 09:44 cephalexin monohydrate (From Allergy Swelling Verified 10/27/24 09:44 Keflex) erythromycin base Allergy Unknown Verified 10/27/24 09:44 ibuprofen AdvReac Upset Verified 10/27/24 09:44 Stomach tramadol AdvReac Nausea/Vom/ Verified 10/27/24 09:44 Diarrhea Surgical History (Updated 04/10/24 @ 19:[address] Ignacio Pearson, DO) History of 3 sections History of vocal cord polypectomy Hx of cholecystectomy Social History housing: house Smoking Status: Current every day smoker tobacco type: cigarettes and e- cigarettes ROS ROS ED Constitutional Constitutional ED: Denies chills or fever(s) Eyes Eyes: Denies blurry vision or diplopia ENT ENT ED: Denies dental pain, ear pain or sore throat Cardiovascular Cardiovascular: Denies chest pain, palpitations or racing heartbeat Respiratory/Chest Respiratory/Chest: Denies dyspnea Gastrointestinal Gastrointestinal: Denies abdominal pain, constipation, fecal incontinence, nausea or vomiting Genitourinary Genitourinary ED: Reports other Details: no urinary retention ; Denies abdominal discomfort or urinary incontinence Musculoskeletal Musculoskeletal: Reports back pain and extremity pain; Denies neck pain Integumentary Denies Abrasions, rash or wounds Neurologic Neurologic: Reports paresthesias RLE (Bottom of foot at times); Denies weakness EXAM Physical Exam Const Vital Signs: 10/27/24 09:43 Temperature 98 F Temperature Source Temporal Pulse Rate 87 Respiratory Rate 14 Blood Pressure 159/94 H Blood Pressure Mean 115 Pulse Ox 98 Oxygen Delivery Method Room Air Positive well nourished and well developed General Appearance ED: well developed and NAD HEENT Negative for trauma or tenderness Eyes PERRL and EOMs intact bilaterally Neck full ROM and supple Chest Wall inspection of chest normal and palpation of chest normal Resp normal respiratory effort and clear to auscultation bilaterally Cardio regular rate and regular rhythm Cardio Narrative: Soft systolic murmur GI normal to inspection, nondistended, normoactive bowel sounds, soft to palpation and non-tender Back/Spine no CVA tenderness, normal ROM and normal to inspection Back/Spine Narrative: Ipsilateral right straight leg raise causes buttock and back pain but does not reproduce radicular symptoms in the right lower extremity. Negative contralateral straight leg raise and cross straight leg raise. Lumbar Spine / Lower Back: ROM limited and straight leg raise negative bilaterally; Negative for lumbar spinal tenderness or paraspinal muscle tenderness Extremity normal to inspection, full ROM and no pedal edema Extremity Narrative: Tenderness throughout the entire posterior left elbow, including all bony prominences of both epicondyles, olecranon process, and all areas in between which is superficial palpation. The skin is normal-appearing without signs of cellulitis. There is no significantly swollen areas to suggest olecranon bursitis or an abscess. All compartments of the forearm and upper arm are soft and nondistended, nontender. She can move the wrist fully, but complains of pain when she does that in the proximal forearm and elbow. I can bend her from straight down to 90 degrees and with the arm abducted, perform pronation and supination with no pain. Also can range the shoulder without any difficulty. Neuro oriented x3, no focal motor deficits and no sensory deficits noted Sensorium / Orientation: alert Motor Exam: strength 5/5 throughout and clonus absent Deep Tendon Reflexes: Rt Patellar (L4): 2+, Lt Patellar (L4): 2+, Rt Ankle (S1):2+ and Lt Ankle (S1): 2+ Deep Tendon Reflexes Back: Rt Patellar (L4): 2+, Lt Patellar (L4): 2+, Rt Ankle (S1): 2+ and Lt Ankle (S1): 2+ Plantar Reflex: Downgoing: bilateral Psych thought process normal Mood & Affect: anxious Skin no wounds Rashes: no rashes MDM MDM MDM Narrative Medical decision making narrative: Patient states she has appointments for these issues but she could not take the pain anymore. I do not think she has an infected elbow or crystal induced arthritis here, she is really moving it well, and she has diffuse tenderness, which to me is less indicative of an acute fracture but I did obtain three-view x-ray series of the left elbow, on my interpretation it is normal. Radiology inagreement. She was given some Toradol here, she is amenable to trying a prescription for prednisone, I do not think that she has a septic arthritis in the left elbow, her exam is very benign except for some superficial tenderness in a very nonspecific distribution. She is following up with her doctor as scheduled. Discharge Plan Triage Chief Complaint: Upper Extremity Injury ED Provider: Sd Desouza Dx/Rx/DC Orders Clinical Impression: Left elbow pain, Acute right-sided low back pain with right-sided sciatica Instructions: ED Arthralgia, ED Sciatica Prescriptions: New prednisone 20 mg tablet 40 mg PO DAILY 6 Days Qty: 12 0RF No Action omeprazole 40 MG capsule,delayed release(DR/EC) 40 mg PO DAILY celecoxib 200 mg capsule 200 mg PO BID furosemide 20 mg tablet 20 mg PO DAILY PRN (Reason: swelling) duloxetine 60 mg capsule,delayed release(DR/EC) 60 mg PO DAILY Primary Care Provider: Care Physician,No Primary Referrals: Doctor,Your [Non-Staff] - Keep [facility] appointment Print Language: Turkmen Disposition Disposition: Home, Self Care What to do if you have Problems For any increased pain, shortness of breath, bleeding, nausea or vomiting, chestpain, or any unexpected problems, contact your Primary Care Provider. Call [facility] ([phone]) or report to the closest Emergency Room. Call 911 if necessary. 10/27/24 1209 <Electronically signed by Sd Desouza MD> Cosigner Signature (if applicable): CC: No Primary Care Physician ~ Signed [facility] Work Phone: Discharge summary Author Ace Fox [facility] Note Date/Time November 15, 2024 7:36 am [facility] Medical Records Department [address] [place] [address] Emergency Department Summary 11/15/24 MR#: [id number] Acct: [id number] Name: MARCY POSEY Rep #:[id number] : 1970 54 From: Ace Fox MD PCP: YONATAN Odom Status:REG ER Location: ED HPI History of Present Illness Chief Complaint: Other, Pain/Inj Detail of Chief Complaint: Patient has numerous complaints. Main complaint is bump right side of her Informant: patient Onset/Context/Timing Onset: Yesterday Context: Sudden Onset Timing: Continuous Quality: Pain and swelling anterior and inferior right ear Location: Right parotid gland and Stensen's duct Current Severity: Mild Maximum Severity: Moderate Worsened by: Nothing Relieved by: Nothing Associated Symptoms Associated Symptoms: Nothing/none Narrative Narrative: Patient is a 54-year-old woman with history of GERD, depression anxiety who presents because of swelling right side of her face and bump on the inside of her mouth. She had other complaints listed in triage but that is not the reasonshe presented. She states she is seen other practitioners for her other complaints. She denies fever, chills night sweats. She denies inability or difficulty opening closing her mouth. She denies change in voice. She denies difficulty swallowing. She has seen Dr. Wagner Martinez in the past. She has multiple antibiotic allergies. Based on her antibiotic allergies we will treat with doxycycline. Patient also was concerned because of bumps on her face. Prior similar symptoms: No Recent Illness/Hospitalization: No PFSH PFS Medical History Arthritis Pancreatitis GERD (gastroesophageal reflux disease) Home Medications ?Medication ?Instructions ?Recorded ?Last Taken ?Type omeprazole 40 mg capsule,delayed 40 mg PO DAILY Unknown History release celecoxib 200 mg capsule 200 mg PO BID 10/27/24 Unkno wn History duloxetine 60 mg capsule,delayed 60 mg PO DAILY Unknown History release furosemide 20 mg tablet 20 mg PO DAILY PRN swelling 10/27/24 Unknown History prednisone 20 mg tablet 40 mg (2 x 20 mg) PO DAILY 6 days 10/27/24 Unknown Rx #12 tabs doxycycline monohydrate 100 mg 100 mg PO BID #14 CAPSU LES 11/15/24 Unknown Rx capsule Allergy/AdvReac Type Severity Reaction Status Date / Time amoxicillin Allergy Unknown Verified 11/15/24 07:13 azithromycin Allergy Upset Verified 11/15/24 07:13 Stomach cephalexin (From Keflex) Allergy Hives Verified 11/15/24 07:13 cephalexin monohydrate (From Allergy Swelling Verified 11/15/24 07:13 Keflex) erythromycin base Allergy Unknown Verified 11/15/24 07:13 ibuprofen AdvReac Upset Verified 11/15/24 07:13 Stomach tramadol AdvReac Nausea/Vom/ Verified 11/15/24 07:13 Diarrhea Surgical History History of 3 sections History of vocal cord polypectomy Hx of cholecystectomy Social History housing: house Smoking Status: Current every day smoker tobacco type: cigarettes and e- cigarettes ROS ROS ED Constitutional Constitutional ED: Denies chills, fever(s), subjective, sweats or weight loss Eyes Eyes: Denies blurry vision, change in vision or diplopia ENT ENT ED: Reports other Details: Detailed HPI narrative ; Denies ear pain, rhinorrhea or sore throat Cardiovascular Cardiovascular: Denies palpitations Respiratory/Chest Respiratory/Chest: Denies cough or dyspnea Gastrointestinal Gastrointestinal: Denies nausea or vomiting Integumentary Reports rash and other Details: Patient has folliculitis/heat rash on her face and neck. Neurologic Neurologic: Denies headache(s) or paresthesias Hematologic/Lymphatic Hematologic/Lymphatic: Reports systems reviewed and no addt'l complaints, exceptas documented EXAM Physical Exam Const Vital Signs: 11/15/24 07:08 Temperature 97.7 F L Temperature Source Temporal Pulse Rate 79 Respiratory Rate 16 Blood Pressure 134/97 H Blood Pressure Mean 109 Pulse Ox 97 Oxygen Delivery Method Room Air Positive well nourished and well developed General Appearance ED: well developed and NAD; Negative for cyanotic or diaphoretic HEENT Reports moist mucous membranes HEENT Narrative: Head is atraumatic and normocephalic. Ears are normal. TMs are normal. There is no preauricular lymphadenopathy. Patient has swelling of her parotid gland. Milking of the parotid gland elicits discharge from Stensen's duct. Posterior pharynx without erythema or exudate. Uvula midline. No deviation tongue with protrusion. There is no dysphonia. There is no drooling. Eyes PERRL and EOMs intact bilaterally General Eye ED: Negative for pale conjunctiva or scleral icterus Neck no lymphadenopathy, supple and no JVD Neck Narrative: Trachea is midline. Cardio regular rate and regular rhythm Extremity normal to inspection Neuro oriented x3 and CN's II-XII intact bilaterally Sensorium / Orientation: alert Psych mental status grossly normal Skin Skin Narrative: Heat rash face/folliculitis. MDM MDM MDM Narrative Medical decision making narrative: Patient presents with facial swelling. Patient's exam is consistent with acute parotid inflammation. This may be due to an obstructing stone. Since patient has no fever and vital signs are unremarkable there is no indication for any laboratory testing. Based on her numerous antibiotic allergies history of doxycycline. She was instructed to suck on lemon drops. She was also instructed to contact Dr. Valderrama's office for follow-up since she has seen him in the past. History & Record Review Additional record(s) reviewed:: Prior ED visit (October 2024 for left elbow pain. April 2020 for forearm edema. May 2019 for ear pain and sinus symptoms.) Treatment and Re-Evaluation :: Patient received her first dose of doxycycline in the emergency department. Prescription for doxycycline was sent to pharmacy. Discharge Plan Triage Chief Complaint: Other, Pain/Inj ED Provider: Ace Fox Dx/Rx/DC Orders Clinical Impression: Acute parotitis, Chronic GERD, BMI greater than 30 Instructions: ED Salivary Gland Infection Prescriptions: New doxycycline monohydrate 100 mg capsule 100 mg PO BID Qty: 14 0RF No Action omeprazole 40 MG capsule,delayed release(DR/EC) 40 mg PO DAILY celecoxib 200 mg capsule 200 mg PO BID furosemide 20 mg tablet 20 mg PO DAILY PRN (Reason: swelling) duloxetine 60 mg capsule,delayed release(DR/EC) 60 mg PO DAILY prednisone 20 mg tablet 40 mg PO DAILY 6 Days Qty: 12 0RF Primary Care Provider: Care Physician,No Primary Referrals: Wagner Martinez MD [Med Staff - Active Staff] - 3-5 Days Care Physician,No Primary [Primary Care Provider] - Activity Restrictions/Additional Instructions: 1. Suck on lemon drops throughout the day. 2. Follow-up with Dr. Wagner Martinez who you have seen in the past. 3. If you develop a temperature greater than 100, shaking chills or significantincrease in facial swelling return to the emergency department Print Language: Turkmen Disposition Disposition: Home, Self Care What to do if you have Problems For any increased pain, shortness of breath, bleeding, nausea or vomiting, chestpain, or any unexpected problems, contact your Primary Care Provider. Call [facility] ([phone]) or report to the closest Emergency Room. Call 911 if necessary. 11/15/24 0736 <Electronically signed by Ace Fox MD> Cosigner Signature (if applicable): CC: YONATAN Chappell ~ Signed [facility] Work Phone: Discharge summary Author Ace Fox [facility] Note Date/Time November 20, 2024 10:5 8am [facility] Medical Records Department [address] [place] [address] Emergency Department Summary 11/20/24 MR#: [id number] Acct: [id number] Name: MARCY POSEY Rep #:[id number] : 1970 54 From: Ace Fox MD PCP: YONATAN Odom Status:PRE ER Location: ED HPI History of Present Illness Chief Complaint: Allergic Reaction Detail of Chief Complaint: Possible allergic reaction and sciatica . Informant: patient Onset/Context/Timing Onset: Today (Bumps on her face) and Weeks (Reported sciatic pain and low back pain) Context: Sudden Onset Timing: Continuous Quality: Patient with small whiteheads over her face. The back pain is a chronic is Location: Face and low back Current Severity: Not applicable Maximum Severity: Not applicable Worsened by: back pain is worse with movement Relieved by: Rest Associated Symptoms Associated Symptoms: No bowel or bladder dysfunction. No radicular pain. She reports foot drop Narrative Narrative: Patient is a 54-year-old woman. She has history of GERD, prostatitis, depression and anxiety and BMI greater than 40. She presents because of white bumps onher face which she believes is due to reaction to the antibiotic she was prescribed. Patient denies itching. Patient denies swelling of her lips, tongue or throat. She denies trouble swallowing. She has had no change in her voice. She has no cardiac or respiratory symptoms. She denies wheezing. Low back pain noted on the right side. There is no radicular pain. She reportsdragging her foot today. She also has numbness in her foot and is seen by Dr. Gustafson. She denies history of diabetes, peripheral arterial disease or neuropathy. There is no history of trauma. She has not noted a rash. She doesnot have symptoms of claudication. Prior similar symptoms: Yes (Yes to back pain note to facial rash) Recent Illness/Hospitalization: Yes (Seen in ED for parotitis.) [facility] Medical History Arthritis Pancreatitis GERD (gastroesophageal reflux disease) Home Medications ?Medication ?Instructions ?Recorded ?Last Taken ?Type omeprazole 40 mg capsule,delayed 40 mg PO DAILY Unknown History release celecoxib 200 mg capsule 200 mg PO BID 10/27/24 Unkno wn History duloxetine 60 mg capsule,delayed 60 mg PO DAILY Unknown History release furosemide 20 mg tablet 20 mg PO DAILY PRN swelling 10/27/24 Unknown History prednisone 20 mg tablet 40 mg (2 x 20 mg) PO DAILY 6 days 10/27/24 Unknown Rx #12 tabs doxycycline monohydrate 100 mg 100 mg PO BID #14 CAPSU LES 11/15/24 Unknown Rx capsule Allergy/AdvReac Type Severity Reaction Status Date / Time amoxicillin Allergy Unknown Verified 11/20/24 10:24 azithromycin Allergy Upset Verified 11/20/24 10:24 Stomach cephalexin (From Keflex) Allergy Hives Verified 11/20/24 10:24 cephalexin monohydrate (From Allergy Swelling Verified 11/20/24 10:24 Keflex) erythromycin base Allergy Unknown Verified 11/20/24 10:24 ibuprofen AdvReac Upset Verified 11/20/24 10:24 Stomach tramadol AdvReac Nausea/Vom/ Verified 11/20/24 10:24 Diarrhea Surgical History History of 3 sections History of vocal cord polypectomy Hx of cholecystectomy Social History housing: house Smoking Status: Current every day smoker tobacco type: e-cigarettes ROS ROS ED Constitutional Constitutional ED: Denies chills, fever(s), subjective or sweats Eyes Eyes: Denies blurry vision or change in vision ENT ENT ED: Denies ear pain, rhinorrhea or sore throat Cardiovascular Cardiovascular: Denies chest pain or palpitations Respiratory/Chest Respiratory/Chest: Denies cough or dyspnea Gastrointestinal Gastrointestinal: Denies nausea Musculoskeletal Musculoskeletal: Reports back pain Integumentary Reports rash Neurologic Neurologic: Denies headache(s) or paresthesias Allergic/Immunologic Allergic/Immunologic ED: Denies mouth swelling, tongue swelling or urticaria EXAM Physical Exam Const Vital Signs: 11/20/24 10:21 Temperature 99.4 F H Temperature Source Oral Pulse Rate 72 Respiratory Rate 18 Blood Pressure 114/87 H Blood Pressure Mean 96 Pulse Ox 98 Oxygen Delivery Method Room Air Positive well nourished and well developed General Appearance ED: well developed and NAD HEENT Reports moist mucous membranes HEENT Narrative: Patient has multiple small whiteheads on her face. She states she has not been sweating profusely recently. She was seen for parotid gland swelling on the right. This has improved. She no longer complains of pain. There is no evidence of angioedema. Trachea is midline. There is no inspiratory expiratorystridor. Eyes PERRL and EOMs intact bilaterally General Eye ED: Negative for pale conjunctiva or scleral icterus Neck no lymphadenopathy, supple and no JVD Neck Narrative: Also documented under the H EENT portion of the EMR Resp normal respiratory effort and clear to auscultation bilaterally Cardio regular rate, regular rhythm, S1 normal heart sound, S2 normal heart sound and no murmurs GI normal to inspection, nondistended, normoactive bowel sounds and non-distended; Negative for hepatosplenomegaly Back/Spine no CVA tenderness Thoracic Spine / Upper Back: Negative for thoracic spinal tenderness Lumbar Spine / Lower Back: lumbar spinal tenderness Extremity normal to inspection General Extremety ED: Negative for edema or tenderness General Extremity: Negative for edema Neuro oriented x3, CN's II-XII intact bilaterally and no sensory deficits noted Neuro Narrative: Pelvic telemetry and ankle reflex are 1+. EHLs intact. Normal sensation L3-S1 dermatome. DP pulses palpable bilateral. Gait was observed. She has no foot drop. Able to walk on heels and toes. Able to perform 1 legged squat right andleft. Having her bend to the right and left and flex causes her discomfort on the right side. Having her stand on her left foot causes her pain right low back. Standing on her right foot causes no discomfort. Motor Exam: strength 5/5 throughout Psych mental status grossly normal Skin No no rashes or lesions noted, no wounds and skin turgor normal Skin Narrative: Previously described under the HEENT portion of the medical exam General Skin Exam: elasticity normal MDM MDM MDM Narrative Medical decision making narrative: With regards to the rash this is not allergic. This has to do with hygiene. Sores or back pain she does not have sciatica. This is musculoskeletal. She cristino NSAID. She was instructed to take her NSAID and ice. Prior ER and outpatient records were reviewed. There is no change since visit last week. Discharge Plan Triage Chief Complaint: Allergic Reaction Other Complaint: Back ED Provider: Ace Fox Dx/Rx/DC Orders Clinical Impression: [place], GERD (gastroesophageal reflux disease), Myofascial pain syndrome of lumbar spine Instructions: Adult Acne, ED Myofascial Pain Syndrome Prescriptions: No Action omeprazole 40 MG capsule,delayed release(DR/EC) 40 mg PO DAILY celecoxib 200 mg capsule 200 mg PO BID furosemide 20 mg tablet 20 mg PO DAILY PRN (Reason: swelling) duloxetine 60 mg capsule,delayed release(DR/EC) 60 mg PO DAILY prednisone 20 mg tablet 40 mg PO DAILY 6 Days Qty: 12 0RF doxycycline monohydrate 100 mg capsule 100 mg PO BID Qty: 14 0RF Primary Care Provider: Kia Chappell NP Referrals: Kia Chappell LIFE TEACHER, LIFE TEACHER-C [Primary Care Provider] - 1 Week if not improving Activity Restrictions/Additional Instructions: 1. Recommend taking your anti-inflammatory for your back pain. If you have loss of bowel control unable to urinate or are dragging your right lower extremity return to the emergency department otherwise follow-up with your providers. Print Language: Turkmen Disposition Disposition: Home, Self Care What to do if you have Problems For any increased pain, shortness of breath, bleeding, nausea or vomiting, chestpain, or any unexpected problems, contact your Primary Care Provider. Call [facility] ([phone]) or report to the closest Emergency Room. Call 911 if necessary. 11/20/24 1058 <Electronically signed by Ace Fox MD> Cosigner Signature (if applicable): CC: LIFE TEACHERVadim Chappell ~ Signed [facility] Work Phone: Evaluation + Plan note Future Appointments Appointment Date:03/31/2024 09:30:00 AM Scheduled Provider: Location:[facility] Appointment Type:PT Treatment - [facility] Evaluation + Plan note Future Appointments Appointment Date:04/21/2024 10:00:00 AM Scheduled Provider: Location:RAD Appointment Type:VL - Venous US/Doppler Both Legs (for DV Diagnostic Tests Pending * Rheumatoid Factor 04/20/24 [facility] Evaluation note* Diagnosis Gastritis and duodenitis- Primary Unspecified gastritis and gastroduodenitis without mention of hemorrhage documented in this encounter [employer] Phone: evaluation note* Diagnosis Gingivitis- Primary Chronic gingivitis, plaque induced Arthritis of right knee Unspecified arthropathy, lower leg documented in this encounter [employer] Phone: evaluation note* Diagnosis Right elbow pain- Primary Pain in joint, upper arm documented in this encounter [employer] Phone: evaluation note* Diagnosis Encounter for screening mammogram for malignant neoplasm of breast Other screening mammogram documented in this encounter [facility] Phone: evaluation note* Diagnosis Viral illness- Primary Unspecified viral infection, in conditions classified elsewhere and of unspecified site documented in this encounter [facility] Phone: evaluation note* Diagnosis Encounter for screening mammogram for malignant neoplasm of breast Other screening mammogram documented in this encounter [facility] [employer] Phone: evaluation note* Diagnosis Rhus dermatitis- Primary Contact dermatitis and other eczema due to plants (except food) documented in this encounter [facility]* Diagnosis Sciatica, right side- Primary Bilateral swelling of feet Swelling of limb documented in this encounter [facility] noteNo assessment information availableWMercy [facility] Work Phone: Evaluation note* Diagnosis Sore in nose- Primary Other diseases of nasal cavity and sinuses Swelling of right side of face [facility] Narrative No data available for this section [facility] Hospital Discharge instructions* Attachments The following attachments cannot be sent through Care Everywhere. * Arthritis (Turkmen) * Periodontal Conditions (Turkmen) [facility] Discharge [facility]* Attachments The following attachments cannot be sent through Care Everywhere. * Joint Pain (Turkmen) [facility]: Hospital Discharge instructions* Attachments The following attachments cannot be sent through Care Everywhere. * Viral Infections (Turk[place]) [facility]: Hospital Discharge instructions* Attachments The following attachments cannot be sent through Care Everywhere. * Poison [place] - [place] - and [place] ([place]) [facility] Dis[facility] instructions No data available for this section [facility] Hospital Discharge instructionsAdditional Instructions 1. Suck on lemon drops throughout the day. 2. Follow-up with Dr. Wagner Martinez who you have seen in the past. 3. If you develop a temperature greater than 100, shaking chills or significant increase in facial swelling return [facility] the [facility] Work Phone: Hospital Discharge instructionsAdditional Instructions 1. Recommend taking your anti-inflammatory for your back pain. If you have loss of bowel control unable to urinate or are dragging your right lower extremity return to the emergency department otherwise follow-up with your providers.[facility] Work Phone: Progress note No data available for this section [facility] Reason for referral (narrative)No reason for referral information availableWMercy Memorial Hospital Work Phone: Assessments Diagnosis Fatigue, unspecified type Screening cholesterol level Screening for lipoid disorders Diagnosis Acute otitis externa of right ear, unspecified type Diagnosis Pain, dental- Primary Unspecified disorder of the teeth and supporting structures Dental caries Unspecified dental caries Advance Directives No Advanced Directives Records FoundDocuments on File Type Date Recorded 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 No October 27, 2024 9:54am Advance Directives No November 12 16 3:19pm Advance Directive Response Recorded Date/ Time Do you have a Healthcare Power of Poly Operator? No October 27, 2024 9:54am Do you have a Healthcare Power of Poly Operator? No November 15, 2024 7:47am Advance Directives No November 12 3:19pm Advance Directive Response Recorded Date/ Time Do you have a Healthcare Power of Poly Operator? No October 27, 2024 9:54am Do you have a Healthcare Power of Poly Operator? No November 15, 2024 7:47am Do you have a Healthcare Power of Poly Operator? No November 20, 2024 10:36am Advance Directives No November 12 3:19pm Discharge Instructions * Attachments The following attachments cannot be sent through Care Everywhere. * Otitis Externa (Turkmen) documented in this encounter* Instructions* Leora Verduzco MD - 01/02/2019 Tylenol 1 gram as needed for pain. * Attachments The following attachments cannot be sent through Care Everywhere. * Periodontal Conditions (Turkmen) * Tooth and Gum Pain (Turk[place]) documented in this encounter Summary Purpose Family History No Family History Records FoundNo Family History Records FoundNo Family History Records Found No data available for this section No data available for this section No data available for this section No data available for this section No Family History Records Found No data available for this section No Family History Records FoundNo Family History Records Found Reason for Referral Specialty Diagnoses / Procedures Referred By Sakina bobby Referred To Contact Radiology Diagnoses Encounter for screening mammogram for malignant neoplasm of breast Procedures LINDY ELICIA DIGITAL SCREEN BILATERAL Kareem Hartley MD [address] [place] [address] Referral ID Status Reason Start Date Expiration Date V isits Requested Visits Authorized [id number] Authorized 01/02/2022 01/02/2023 1 1 Referral ID Status Reason Start Date Expiration Date V isits Requested Visits Authorized [id number] Authorized 08/06/2022 08/06/2023 1 1 Chief Complaint and Reason for Visit Chief Complaint Admit Date SCIATICA October 27, 2024 9:43 am Chief Complaint Admit Date SCIATICA October 27, 2024 9:43 am other pain November 15, 2024 7:06 am Chief Complaint Admit Date SCIATICA October 27, 2024 9:43 am other pain November 15, 2024 7:06 am back pain November 20, 2024 10:1 9am Additional Source Comments Reason for Visit (unrecogniz ed section and content) Reason Comments Otalgia started 2 months ago with right ear pain went to dr said tmj went to dentist pulled tooth put on antibiotic just finished still has pain Reason Comments Dental Pain right lower jaw pain and swelling Reason Comments Abdominal Pain abdominal pain aroun d and above umbilicus on/off x 3 days, worse after eating Reason Comments Dental Pain inside bottom lip an d gums hurt Knee Pain right knee pain wors e than usual today. I have water in my knee joint and it's very painful today Denies any new injury Reason Comments Other right elbow pain ons et 2 months ago, tender to touch. No known injury Specialty Diagnoses / Procedures Referred By Sakina bobby Referred To Contact Radiology Diagnoses Encounter for screening mammogram for malignant neoplasm of breast Procedures LINDY ELICIA DIGITAL SCREEN BILATERAL Kareem Hartley MD [address] [facility] [place] [address] Referral ID Status Reason Start Date Expiration Date V isits Requested Visits Authorized [id number] Authorized 01/02/2022 01/02/2023 1 1 Reason Comments Sweats And chills, cough, r unny nose, fatigue and scratchy throat onset 3 -4 days ago. Referral ID Status Reason Start Date Expiration Date V isits Requested Visits Authorized [id number] Authorized 08/06/2022 08/06/2023 1 1 Reason Comments Rash Here 8/7 not getting better Reason Comments Right Hip Pain Radiating to R thigh , bilateral foot edema with numbness and tingling x4 days Reason Comments right side facial swelling X 1 day and s ore in nose x 1 week Reason Onset Date Comments Results 11/12/2024 Reason Comments Medication Problem Ordered Prescriptions (unrec ognized section and content) Prescription Sig Dispensed Refills Start Date End Da te sucralfate (CARAFATE) 1 GM tablet Take 1 tablet by mouth 4 times daily 120 tablet 3 10/18/2020 omeprazole (PRILOSEC) 20 MG delayed release capsule Take 1 capsule by mouth every 12 hours for 14 days 28 capsule 0 10/18/2020 11/01/2020 Prescription Sig Dispensed Refills Start Date End Da te predniSONE (DELTASONE) 20 MG tablet Take 1 tablet by mouth 2 times daily for 5 days 10 tablet 0 02/04/2021 02/09/2021 clindamycin (CLEOCIN) 300 MG capsule Take 1 capsule by mouth 3 times daily for 7 days 21 capsule 0 02/04/2021 02/11/2021 Prescription Sig Dispensed Refills Start Date End Da te naproxen (NAPROSYN) 500 MG tablet Take 1 tablet by mouth 2 times daily for 7 days 14 tablet 0 08/25/2021 09/01/2021 methylPREDNISolone (MEDROL, JOSE GUADALUPE,) 4 MG tablet Take by mouth. 1 kit 0 08/25/2021 08/31/2021 Prescription Sig Dispensed Refills Start Date End Da te albuterol sulfate HFA (VENTOLIN HFA) 108 (90 Base) MCG/ACT inhaler Inhale 2 puffs into the lungs 4 times daily as needed for Wheezing 54 g 1 03/14/2022 naproxen (NAPROSYN) 500 MG tablet Take 1 tablet by mouth 2 times daily for 10 days 20 tablet 0 03/14/2022 03/24/2022 sodium chloride (OCEAN) 0.65 % nasal spray 1 spray by Nasal route as needed for Congestion 88 mL 0 03/14/2022 brompheniramine-pseudoe phedrine-DM (BROMFED DM) 2-30-10 MG/5ML syrup Take 5 mLs by mouth 4 times daily as needed for Congestion or Cough 90 mL 0 03/14/2022 Prescription Sig Dispensed Refills Start Date End Da te hydrocortisone 1 % cream APPLY TO AFFECTED AREA BID FOR 10 DAYS 28 g 01/01/2024 01/08/2024 predniSONE (DELTASONE) 10 MG tablet Take 3 tablets by mouth daily for 10 days 30 tablet 01/01/2024 01/11/2024 Scheduled Active and Recently Administ ered Medications (unrecognized section and content) Medication Order 02/02/2021 02/03/2021 02/04/2021 predniSONE (DELTASONE) tablet 60 mg (COMPLETED) 60 mg, Oral, ONCE, On Wed02/04/21 at 1700, For 1 dose 1702 (Given - Provid er: Flaca Ingram RN) Scheduled Medication Order 12/30/2023 12/31/2023 01/01/2024 dexAMETHasone (PF) (DECADRON) injection 10 mg (COMPLETED) 10 mg, IntraMUSCular, ONCE, On 01/01/24 at 1930, For 1 dose 1927 (Given - Provid er: Whitney Carpenter RN) Care Teams (unrecognized sec tion and content) Dental Appliance Mechanic Relationship Specialty Start Date End Date Kareem Hartley MD [address] [place] [phone] PCP - General Family Medicine 08/18/18 Dental Appliance Mechanic Relationship Specialty Start Date End Date Kareem Hartley MD [address] [place] [address] PCP - General Family Medicine 08/18/18 Dental Appliance Mechanic Relationship Specialty Start Date End Date Kareem Hartely MD [address] [place] [phone] PCP - General Family Medicine 08/18/18 Dental Appliance Mechanic Relationship Specialty Start Date End Date Kareem Hartley MD [address] [place] [phone] PCP - General Family Medicine 08/18/18 Dental Appliance Mechanic Relationship Specialty Start Date End Date Kareem Hartley MD [address] [place] [phone] PCP - General Family Medicine 08/18/18 Dental Appliance Mechanic Relationship Specialty Start Date End Date Kareem Hartley MD [address] [place] [phone] PCP - General Family Medicine 08/18/18 Team Status: Active Member Role/Relationship Status Dates No Primary Care Physician Primary Care Provider Active Team Status: Inactive Member Role/Relationship Status Dates No Primary Care Physician Primary Care Provider Active Start: October 27, 2024 End: October 27, 2024 Dr. Sd Desouza MD Emergency Provider Active Start: October 27, 2024 End: October 27, 2024 Team Status: Active Member Role/Relationship Status Dates Kia Chappell LIFE TEACHER, LIFE TEACHER-C Primary Care Provider Active Team Status: Inactive Member Role/Relationship Status Dates No Primary Care Physician Primary Care Provider Active Start: October 27, 2024 End: October 27, 2024 Dr. Sd Desouza MD Attending Provider Active Start: October 27, 2024 End: October 27, 2024 Dr. Sd Desouza MD Emergency Provider Active Start: October 27, 2024 End: October 27, 2024 Team Status: Inactive Member Role/Relationship Status Dates Dr. Ace Fox MD Emergency Provider Active Sta rt: November 15, 2024 End: November 15, 2024 Kia Chappell LIFE TEACHER, LIFE TEACHER-C Primary Care Provider Active Start: November 15, 2024 End: November 15, 2024 Team Status: Inactive Member Role/Relationship Status Dates Kia Chappell NP, LIFE TEACHER-C Primary Care Provider Active Start: November 20, 2024 End: November 20, 2024 Dr. Ace Fox MD Emergency Provider Active Sta rt: November 20, 2024 End: November 20, 2024 INFORMATION SOURCE (unrecogn ized section and content) DATE CREATED AUTHOR 11/05/2021 [facility] DATE CREATED AUTHOR AUTHOR'S ORGANIZ ATION 08/15/2022 [facility] DATE CREATED AUTHOR AUTHOR'S ORGANIZ ATION 01/08/2024 [facility] DATE CREATED AUTHOR AUTHOR'S ORGANIZ ATION 11/23/2024 [facility] DATE CREATED AUTHOR AUTHOR'S ORGANIZ ATION 11/28/2024 [facility] DATE CREATED AUTHOR AUTHOR'S ORGANIZ ATION 12/01/2024 [facility] Source Comments (unrecognize d section and content) In the event this informatio n is protected by the Federal Confidentiality of Alcohol and Drug Abuse Patient Records regulations: The Federal rules restrict any use of the information to criminally investigate or prosecute any alcohol or drug abuse patient.[facility] Hospital[facility] the event this information is protected by the Federal Confidentiality of Alcohol and Drug Abuse Patient Records regulations: The Federal rules restrict any use of the information to criminally investigate or prosecute any alcohol or drug abuse patient.[facility] HospitalIn the event this information is protected by the Federal Confidentiality of Alcohol and Drug Abuse Patient Records regulations: The Federal rules restrict any use of the information to criminally investigate or prosecute any alcohol or drug abuse patient.[facility] HospitalIn the event this information is protected by the Federal Confidentiality of Alcohol and Drug Abuse Patient Records regulations: The Federal rules restrict any use of the information to criminally investigate or prosecute any alcohol or drug abuse patient.[facility] HospitalIn the event this information is protected by the Federal Confidentiality of Alcohol and Drug Abuse Patient Records regulations: The Federal rules restrict any use of the information to criminally investigate or prosecute any alcohol or drug abuse patient.[facility] Goals (unrecognized section and content) Goals may be documented in a n alternate section FOR RECORDS PERTAINING TO PATIENTS WHO ARE OR HAVE BEEN ENROLLED IN A CHEMICAL DEPENDENCY/SUBSTANCEABUSE PROGRAM, SOME INFORMATION MAY BE OMITTED. This clinical summary was aggregated from multiple sources. Caution should be exercised in using it in the provision of clinical care. This summary normalizes information from multiple sources, and as a consequence, information in this document may materially change the coding, format and clinical context of patient data. In addition, data may be omitted in some cases. CLINICAL DECISIONS SHOULD BE BASED ON THE PRIMARY CLINICAL RECORDS. [facility] [employer] [facility]. provides no warranty or guarantee of the accuracy or completeness of information in this document.
--- NOTE | 2024-12-07 09:30 | RAD_ITS ---
PROCEDURE: ANKLE MIN 3 VIEWS 12/07/2024 REASON FOR EXAM: INJURY/PAIN TECHNIQUE: ANKLE MIN 3 VIEWS COMPARISON: None FINDINGS: Bones: No fracture. Joints: Normal. Calcaneal spur is present. Soft tissues: Soft tissue swelling. Other: No foreign body RAD/Ankle min 3 Views IMPRESSION: No fracture. Soft tissue swelling is present. Reading Location: [id number]
--- NOTE | 2024-12-07 09:30 | RAD_ITS ---
PROCEDURE: FOOT MIN 3 VIEWS 12/07/2024 REASON FOR EXAM: INJURY/PAIN TECHNIQUE: FOOT MIN 3 VIEWS COMPARISON: None. FINDINGS: There is no evidence of fracture or dislocation. There are no significant joint space abnormalities. There is a moderate plantar spur. There are no soft tissue abnormalities. RAD/Foot min 3 Views IMPRESSION: No evidence of acute injury. Plantar spur. Reading Location: [id number]
[2024-12-07 10:22] VITALS: BP 167/84; PULSE 85; RESP 16; O2SAT 99
[2024-12-07 11:10] VITALS: BP 167/84; PULSE 85; RESP 16; TEMP 36.6; O2SAT 99
== END 2024-12-07 11:11 | disposition home or self-care (01) ==
PROVIDERS: Emergency Provider Emergency Medicine; PCP Nurse Practitioner Family; Visit Provider Emergency Medicine
DX: M79.671 Pain in right foot (principal); K21.9 Gastro-esophageal reflux disease without esophagitis; F17.290 Nicotine dependence, other tobacco product, uncomplicated; R51.9 Headache, unspecified; M54.2 Cervicalgia
CPT/HCPCS: 73610; 73630; 99282

== ENCOUNTER 2025-02-21 16:10 | Emergency (ER) | payer MEDICAID, SELFPAY ==
[2025-02-21 16:10] VITALS: BP 154/92; PULSE 71; RESP 16; TEMP 36.8; O2SAT 98
[2025-02-21 19:47] VITALS: BP 177/90; PULSE 80; RESP 18; TEMP 36.8; O2SAT 99
[2025-02-21 20:10] VITALS: BP 177/90; PULSE 73; RESP 18
== END 2025-02-21 20:27 | disposition home or self-care (01) ==
PROVIDERS: Emergency Provider Emergency Medicine; PCP Family Medicine; Visit Provider Emergency Medicine
DX: H53.9 Unspecified visual disturbance (principal); M79.661 Pain in right lower leg; M79.662 Pain in left lower leg; K21.9 Gastro-esophageal reflux disease without esophagitis; F17.290 Nicotine dependence, other tobacco product, uncomplicated
CPT/HCPCS: 96372; 99282

== ENCOUNTER 2025-03-30 12:30 | Outpatient (RCR) | payer MEDICAID, SELFPAY ==
--- NOTE | 2025-01-08 11:00 | HP.PTEVAL_ITS ---
Patient's Visit Information Visit Information Visit Information: LAVELL LOUIS is a 54 year old F referred to Physical Therapy by YONATAN Odom with a diagnosis of SCIATICA. Date of Evaluation: 01/08/25 Physical Therapist: Oliver Doan, PT, Cert MDT, OCS Visit Plan Frequency: 2x /Week Duration: 4 Weeks Plan: PT INTERVENTIONS AQUATIC THERAPY FOR DLS ,POSTURAL EX'S ,LE FLEXABILITY ,ACTIVITY MODIFICATION AND MODALTIES Subjective Subjective: Thi 54 y/o female presents to physical therapy with sciatica . Patient has had lumbar radiculopathy intermittent for many years. Patient symptoms had ve been more constant . Patient has had MRI 2016 showed Severe left lateral recess and mild neural foraminal stenosis at L5-S1 secondary to large left paracentral/posterolateral disc protrusion. Seen recommended and medication gabapentin and celebrex.Patient had x-rays showed DDD. Pain located in feet. Patient has low back pain radiating to groin.Patient ahs had prior PT in past. Aggravating factors walking ,bending .lifting nd sitting. Alleviating factors rest and medication. Pain affects sleeping. Coughing/sneezing +. Denies parestehesia/tingling feet. Patient had to stop working. Patient symptoms affects QOL and functions. Patient goals to decrease pain. SOCAIL: single VOCATION: unemployed Pain Bilateral Back: Pain Intensity (Out of 10): 2 Pain Intensity Range: 9 Objective Objective: POSTURE: mod forward posture GAIT: reciprocal pattern forward posture antalgic NEURO: c/o paresthesia/tingling feet ,light touch intact,reflexes L3-4,L4-5 ,L4- 5 ,L5-S1 PALAPTION: tender LS MMT: quads/hams 4/5 ,hip flexion 4-/5 ,ankle 4/5 FLEXABILITY: hamstrings min tight LUMBAR ROM: flexion min loss ,extension min/mod loss ,side glides min loss Special Tests L/S Slump test left side: Negative L/S Slump test right side: Negative L/S Left Straight Leg Raise: Negative L/S Right Straight Leg Raise: Negative Lumbar Standing: Flexion - Mechanical Response: No effect Lumbar Standing: Flexion - Symptoms During Testing: Increases Lumbar Standing: Flexion - Symptoms After Testing: No worse Lumbar Standing: Extension - Mechanical Response: No effect Lumbar Standing: Extension - Symptoms During Testing: Increases Lumbar Standing: Extension - Symptoms After Testing: No worse Lumbar Standing: Right Side [place] - Symptoms During Testing: No effect Lumbar Standing: Right Side [place] - Symptoms After Testing: No effect Lumbar Standing: Left Side [place] - Mechanical Response: No effect Lumbar Standing: Left Side [place] - Symptoms During Testing: No effect Lumbar Standing: Left Side [place] - Symptoms After Testing: No effect Lumbar Lying: Flexion - Mechanical Response: No effect Lumbar Lying: Flexion - Symptoms During Testing: Increases Lumbar Lying: Flexion - Symptoms After Testing: No worse Lumbar Lying: Extension - Mechanical Response: No effect Lumbar Lying: Extension - Symptoms During Testing: Increases Lumbar Lying: Extension - Symptoms After Testing: No worse Balance/Special Test Scores Oswestry Low Back Score: 37 Goals Goal 1:: Patient to be I with HEP to manage lumbar pain Goal Time Frame: 4-6 Weeks Goal 2:: Patient to improve lumbar ROM for function of recovery for ADLS and put on shoes Goal Time Frame: 4-6 Weeks Goal 3:: Patient to demonstrate 50% improvement with less pain and improved function Goal Time Frame: 4-6 Weeks Goal 4:: Patient to improve back oswestry score by 5 points to improve QOL and fucntion Goal Time Frame: 4-6 Weeks Rehabilitation Potential Physical Therapy Diagnosis: This patient has lumbar radiculopathy with H/O DDD and posterior /lateral large protrusion with pain with positioning and motion testing worse with walking/standing thus benefit from skilled PT Rehabilitation Potential: Fair Anticipated Interventions Patient/Client Instruction: Educate patient on: Condition and Plan of Care For the Purpose of:: To decrease pain, To increase ROM, To improve muscle performance and motor function, To improve ability to perform ADL's, To increase tolerance to activity/condition/position, To improve ability of physical actions for home/community/work/leisure, To improve health of tissue, To decrease soft tissue restriction, To increase flexibility/ROM and To improve safety Therapeutic Exercise to Include: Strength training, Postural training, Flexibilty training, In an aquatic setting and Dynamic Lumbar Stabilization For the Purpose of:: To decrease pain, To increase ROM, To improve muscle performance and motor function, To increase tolerance to activity/condition/position, To improve ability of physical actions for h ome/community/work/leisure, To improve health of tissue, To decrease soft tissue restriction and To increase flexibility/ROM TENS: Yes IF ES: Yes Thermo therapy (hot pack): Yes For the Purpose of:: To decrease pain, To increase ROM, To improve nutrient delivery to tissue and To increase oxygenation perfusion Text: Thank you for the opportunity to evaluate your patient. For Medicare and Medicare HMO plans, please review the plan of care and approve it. It will need to be FAXED BACK to us at [phone] for Medicare purposes. For Medicare only, by signing this I certify the plan of care. Please let me know if there are questions or concerns regarding this plan of care. Physician Signature: Date:
--- NOTE | 2025-02-09 14:27 | HP.PTRE(2) ---
Re-Evaluation Intro: Kia Chappell, LIANA-C, It has been my pleasure to treat LAVELL LOUIS over the last 1 visits for EDEAM AND BILATERAL PLANTAR FASCITIS. Please see the progress note below for an update on the physical therapy plan of care! Plan Plan Plan: 2ND CHART PT INTERVENTIONS FLEXABILITY ROM/ANKLE ,STRENGTHENING EX'S ANKLE STABILIZERS ,FUNCTIONAL STRENGTHENING Goals Goals Goal 1:: Patient to be I with HEP for ankles Goal Time Frame: 4-6 Weeks Goal 2:: Patient to demonstrate 50 % less pain and improved function wih gait Goal Time Frame: 4-6 Weeks Goal 3:: Patient to be able to ambulate and stand to perform ADLS with min limitations Goal Time Frame: 4-6 Weeks Goal 4:: Patient to improve LFES score by 5 points to improve QOL and function Goal Time Frame: 4-6 Weeks Anticipated Interventions Anticipated Interventions Patient/Client Instruction: Educate patient on: Condition and Plan of Care For the Purpose of:: To decrease pain, To increase ROM, To improve muscle performance and motor function, To improve ability to perform ADL's, To increase tolerance to activity/condition/position, To improve ability of physical actions for home/community/work/leisure, To improve health of tissue, To decrease soft tissue restriction, To increase flexibility/ROM, To reduce risk of recurrence and To improve tolerance to ADL's Therapeutic Exercise to Include: Endurance training, Postural training, Flexibilty training, Gait and locomotor training, Passive ROM and Active ROM For the Purpose of:: To decrease pain, To increase ROM, To improve muscle performance and motor function, To improve ability to perform ADL's, To increase tolerance to activity/condition/position, To improve ability of physical actions for home/community/work/leisure, To improve gait and locomotor functions, To decrease soft tissue restriction, To increase flexibility/ROM and To improve tolerance to ADL's Manual Therapy Techniques to Include: Soft tissue mobilization Comment: STICK /HAWK CALF and PF if needed For the Purpose of:: To decrease pain, To increase ROM, To improve nutrient delivery to tissue, To increase oxygenation perfusion, To improve health of tissue, To decrease soft tissue restriction and To increase flexibility/ROM Re-Evaluation Ending Re-evaluation ending: Please do not hesitate to contact me at [phone] by phone or if you have questions or concerns regarding this new plan of care! Sincerely, Oliver Doan, PT, Cert MDT, OCS
--- NOTE | 2025-02-09 14:46 | HP.PTEVAL2_ITS ---
Patient's Visit Information Visit Information Visit Information: LAVELL LOUIS is a 54 year old F referred to Physical Therapy by Dr Ar Calderon DPM with a diagnosis of EDEMA AND BILATERAL PLANTAR FASCITIS. Date of Evaluation: 02/09/25 Physical Therapist: Oliver Dona, PT, Cert MDT, OCS Visit Plan Frequency: 2x /Week Duration: 4 Weeks Plan: 2ND CHART PT INTERVENTIONS FLEXABILITY ROM/ANKLE ,STRENGTHENING EX'S ANKLE STABILIZERS ,FUNCTIONAL STRENGTHENING Subjective Subjective: This 54 y/o female presents to physical therapy with edema and bilateral plantar fasciitis. Patient has pain since last Jan . Patient seen Dr Calderon recommended PT cut orthotics Pain located plantar fascia and dorsal foot. Pain is described as ache sharp pain calcaneal . Aggravating factors walking/standing symptoms worse. Alleviating factors rest. Medications gabapentin/celebrex.Patient is unable to wear orthotics due to edema.Patient c.o paresthesia/tingling calf. Patient pain affects sleeping. Patient pain affects working around house and ADLS. Patient goals to have less pain with walking. Patient had x-rays plantar spur. SOCIAL: VOCATION: unemployed Pain Bilateral Foot: Intensity: 6 Pain Intensity Range: 10 Objective Objective: POSTURE: ( frontal plane mechanics foot) pes planus calcaneal valgus) EDEMA: 1+ bilateral ankle NEURO: c/o paresthesia feet TRIMALLEOLAR: RIGHT 82.1 cm ,LEFT 89.9 cm GAIT: ambulates with 2 point gait antalgic gait bilateral slow shima PALPATION: dorsal foot ,absent plantar aspect with Palpation AROM: ankle 0 degrees ,inversion 35 degrees ,eversion 10 degrees ,plantar flexion 62 degrees MMT: ankle stabilizers anterior tibialis ,peroneus and posterior tibialis 4/5 ,G-S 4-/5 PROPRIOCEPTION: poor unable SLS G-S FLEXABILITY: mild /mod tight Goals Goal 1:: Patient to be I with HEP for ankles Goal Time Frame: 4-6 Weeks Goal 2:: Patient to demonstrate 50 % less pain and improved function wi gait Goal Time Frame: 4-6 Weeks Goal 3:: Patient to be able to ambulate and stand to perform ADLS with min limitations Goal Time Frame: 4-6 Weeks Goal 4:: Patient to improve LFES score by 5 points to improve QOL and function Goal Time Frame: 4-6 Weeks Rehabilitation Potential Physical Therapy Diagnosis: This patient has bilateral foot pain with edema and decrease pain thus benefit from skilled PT Rehabilitation Potential: Fair Anticipated Interventions Patient/Client Instruction: Educate patient on: Condition and Plan of Care For the Purpose of:: To decrease pain, To increase ROM, To improve muscle performance and motor function, To improve ability to perform ADL's, To increase tolerance to activity/condition/position, To improve ability of physical actions for home/community/work/leisure, To improve health of tissue, To decrease soft tissue restriction, To increase flexibility/ROM, To reduce risk of recurrence and To improve tolerance to ADL's Therapeutic Exercise to Include: Endurance training, Postural training, Flexibilty training, Gait and locomotor training, Passive ROM and Active ROM For the Purpose of:: To decrease pain, To increase ROM, To improve muscle performance and motor function, To improve ability to perform ADL's, To increase tolerance to activity/condition/position, To improve ability of physical actions for home/community/work/leisure, To improve gait and locomotor functions, To de crease soft tissue restriction, To increase flexibility/ROM and To improve tolerance to ADL's Manual Therapy Techniques to Include: Soft tissue mobilization Comment: STICK /HAWK CALF and PF if needed For the Purpose of:: To decrease pain, To increase ROM, To improve nutrient delivery to tissue, To increase oxygenation perfusion, To improve health of tissue, To decrease soft tissue restriction and To increase flexibility/ROM text: Thank you for the opportunity to evaluate your patient. For Medicare and Medicare HMO plans, please review the plan of care and approve it. It will need to be FAXED BACK to us at [phone] for Medicare purposes. For Medicare only, by signing this I certify the plan of care. Please let me know if there are questions or concerns regarding this plan of care. Physician Signature: Date:
== END 2025-03-30 19:00 | disposition home or self-care (01) ==
LOC: PT 12:30
PROVIDERS: PCP Family Medicine; Referring Provider Podiatrist Foot & Ankle Surgery; Visit Provider Nurse Practitioner Family
DX: M54.30 Sciatica, unspecified side (principal); R60.9 Edema, unspecified; M72.2 Plantar fascial fibromatosis
CPT/HCPCS: 97110; 97113; 97162; 97530